=== PATIENT | female | born 1950 | race Caucasian/White ===

== ENCOUNTER → 2020-03-07 09:36 | Outpatient (BNVA) | payer MEDICARE, MEDICAID, SELFPAY | PROVIDERS: PCP Internal Medicine; Referring Provider Internal Medicine; Visit Provider Internal Medicine | DX: Z13.89 Encounter for screening for other disorder (principal) | CPT/HCPCS: Q3014 ==

== ENCOUNTER → 2020-05-10 11:34 | Outpatient (BNVA) | payer MEDICARE, MEDICAID, SELFPAY | PROVIDERS: PCP Family Medicine; Visit Provider Internal Medicine | DX: Z76.89 Persons encountering health services in other specified circumstances (principal) | CPT/HCPCS: Q3014 ==

== ENCOUNTER 2020-06-14 15:06 | Outpatient (REF) | payer MEDICARE, MEDICAID, SELFPAY ==
[2020-06-14 16:52] LABS: Calcium 8.4 mg/dL (8.4-10.2)
[2020-06-14 17:20] LABS: Free T4 (Free Thyroxine) 0.96 ng/dL (0.71-1.85); Thyroid Stimulating Hormone 0.41 uIU/mL (0.32-4.0); Vitamin D 25-OH Total 37.8 ng/mL (>30)
[2020-06-15 13:47] LABS: Calcium (PTHI) 8.8 mg/dL (8.6-10.4); PTHI 67 pg/mL (14-64)
== END 2020-06-14 15:07 | disposition home or self-care (01) ==
LOC: HO.HMGCLDS 15:06
PROVIDERS: PCP Internal Medicine; Visit Provider Internal Medicine
DX: E55.9 Vitamin D deficiency, unspecified (principal); E04.1 Nontoxic single thyroid nodule; E04.2 Nontoxic multinodular goiter
CPT/HCPCS: 36415; 82040; 82306; 82310; 83970; 84439; 84443

== ENCOUNTER 2020-07-03 07:56 | Outpatient (REF) | payer MEDICARE, MEDICAID, SELFPAY ==
[2020-07-03 12:05] LABS: Cholesterol 231 mg/dL; HDL Cholesterol 51 mg/dL; LDL Cholesterol Calculated 155 mg/dl; Triglycerides 129 mg/dL
== END 2020-07-03 07:57 | disposition home or self-care (01) ==
LOC: HO.HMGCLDS 07:56
PROVIDERS: PCP Internal Medicine; Visit Provider Internal Medicine
DX: E78.5 Hyperlipidemia, unspecified (principal)
CPT/HCPCS: 36415; 80061

== ENCOUNTER 2020-07-05 08:51 | Outpatient (REF) | payer MEDICARE, MEDICAID, SELFPAY ==
--- NOTE | 2020-07-05 09:41 | P.BOP_ITS ---
Brief Operative Note Date of Service: 07/05/20 Surgeon: Juliet Mccracken, DO This is doctor Juliet Mccracken. This is an ultrasound-guided fine-needle aspiration report. Date of Examination: 07/05/2020 Indication: Multinodular Thyroid Porcedure: Procedure was explained to the patient. Alternatives, the risk and benefits were discussed. Written consent was obtained. A time-out was also obtained. After sterile preparation, fine-needle aspiration of a Right mid pole 3.3 cm thyroid nodule was performed using direct ultrasound guidance to confirm accurate needle placement. Four aspirations were made using 27 gauge needles. Samples were submitted for cytology. One pass was dedicated for [employer] sequencing quality control inspector heading testing. The patient tolerated the procedure well. Aftercare instructions were provided. Impression: Uncomplicated fine needle aspiration biopsy of a right mid pole 3.3 cm thyroid nodule under ultrasound guidance. Estimated blood loss (mL): 0
[2020-07-05] MEDS: Lidocaine HCl 1 % MPF 5 ML VIAL SUBCUT (11:38)
== END 2020-07-05 08:52 | disposition home or self-care (01) ==
LOC: HO.US 08:51
PROVIDERS: Visit Provider Internal Medicine
DX: E04.1 Nontoxic single thyroid nodule (principal)
CPT/HCPCS: 10005; 88172; 88173

== ENCOUNTER → 2020-07-19 08:47 | Outpatient (BNVA) | payer MEDICARE, MEDICAID, SELFPAY | PROVIDERS: PCP Internal Medicine; Visit Provider Internal Medicine | DX: Z13.89 Encounter for screening for other disorder (principal) | CPT/HCPCS: Q3014 ==

== ENCOUNTER 2020-10-02 16:20 | Outpatient (REF) | payer MEDICARE, MEDICAID, SELFPAY ==
--- NOTE | ~2020-10-02 | MM_ITS ---
EXAMINATION: MM SCREENING DIGITAL BREAST TOMOSYNTHESIS, BILATERAL CLINICAL INFORMATION: Screening. Asymptomatic. The lifetime risk of breast cancer based on the Tyrer-Cuzick Model is 7%. COMPARISON: Outside mammography: 07/29/2018, 07/24/2017 ([place]); and prior exam 01/04/2015. TECHNIQUE: Digital breast tomosynthesis is performed in both the craniocaudal and mediolateral oblique views along with computer-aided detection (CAD). Synthesized 2D images are generated from the tomosynthesis. FINDINGS: There are scattered areas of fibroglandular density (ACR BI-RADS breast composition Category b). Parenchymal pattern is similar to prior studies. There is no developing density or interval mass or architectural abnormality. Small nodular asymmetric density central left breast on CC view mid depth is slightly decreased from prior exams. The axilla and skin contours are unremarkable. MM/MM tomosynthesis screening BI IMPRESSION: No mammographic evidence of malignancy. ASSESSMENT: BI-RADS 2: Benign RECOMMENDATION: Routine annual mammography screening. This patient's information was entered into a reminder system with a target due date for their next mammogram.
== END 2020-10-02 16:21 | disposition home or self-care (01) ==
LOC: HO.MAMMO 16:20
PROVIDERS: Visit Provider Internal Medicine
DX: Z12.31 Encounter for screening mammogram for malignant neoplasm of breast (principal)
CPT/HCPCS: 77063; 77067

== ENCOUNTER 2021-01-08 09:02 | Outpatient (REF) | payer MEDICARE, MEDICAID, SELFPAY ==
[2021-01-08 12:23] LABS: Vitamin D 25-OH Total 36.7 ng/mL (>30)
[2021-01-08 12:28] LABS: Alanine Aminotransferase 14 U/L (0-31); Albumin Level 4.1 g/dL (3.5-5.0); Alkaline Phosphatase 73 U/L (39-117); Anion Gap 12 (12-20); Aspartate Amino Transferase 21 U/L (5-31); Bilirubin Total 0.5 mg/dL (0.0-1.0); Blood Urea Nitrogen 16 mg/dL (9-16); Calcium 8.7 mg/dL (8.4-10.2); Carbon Dioxide 22 mmol/L (22-29); Chloride 111 mmol/L (96-108); Estimated Glomerular Filt Rate > 60; Glucose Random 107 mg/dL (60-115); Phosphorus 3.3 mg/dL (2.7-4.5); Potassium 4.2 mmol/L (3.3-5.1); Sodium 141 mmol/L (135-145); Total Protein 6.8 g/dL (6.5-8.0)
[2021-01-10 15:37] LABS: Calcium (PTHI) 8.8 mg/dL (8.6-10.4); PTHI 53 pg/mL (14-64)
== END 2021-01-08 09:03 | disposition home or self-care (01) ==
LOC: HO.HMGCLDS 09:02
PROVIDERS: PCP Internal Medicine; Visit Provider Internal Medicine
DX: E55.9 Vitamin D deficiency, unspecified (principal)
CPT/HCPCS: 36415; 80053; 82306; 83970; 84100

== ENCOUNTER 2021-01-11 | Outpatient (REF) | payer MEDICARE, MEDICAID, SELFPAY ==
[2021-01-11 12:12] LABS: Total Volume 24 Hour Urine 1800 mL
[2021-01-11 12:24] LABS: Creatinine, 24Hr Urine 1.3 G/Day (1.0-2.0); Creatinine, mg/dL 73.71
[2021-01-13 17:27] LABS: Calcium, 24 Hr Urine 86 mg/24 h; Calcium/Creatinine Ratio 62 mg/g creat (30-275)
== END 2021-01-11 00:01 | disposition home or self-care (01) ==
LOC: HO.HMGCLNP
PROVIDERS: Visit Provider Internal Medicine
DX: E55.9 Vitamin D deficiency, unspecified (principal)
CPT/HCPCS: 82340; 82570

== ENCOUNTER → 2021-01-21 12:39 | Outpatient (BNVA) | payer MEDICARE, MEDICAID, SELFPAY | PROVIDERS: PCP Internal Medicine; Visit Provider Internal Medicine | DX: E04.2 Nontoxic multinodular goiter (principal); E83.51 Hypocalcemia; E55.9 Vitamin D deficiency, unspecified | CPT/HCPCS: Q3014 ==

== ENCOUNTER 2021-02-18 09:43 | Outpatient (REF) | payer MEDICARE, MEDICAID, SELFPAY ==
--- NOTE | ~2021-02-18 | US_ITS ---
EXAMINATION: US THYROID CLINICAL INFORMATION: Nontoxic multinodular goiter. COMPARISON: Ultrasound-guided thyroid ultrasound 07/05/2020. Thyroid ultrasound 12/12/2019. TECHNIQUE: Linear transducer grayscale and color Doppler examination with attention to the region of the thyroid. FINDINGS: SIZE: Measurements of the thyroid lobes and nodules are given in sagittal, anteroposterior and transverse dimensions respectively. Right Thyroid Lobe: 6.3 x 3.4 x 2.5 cm, volume 28.0 mL. Left Thyroid Lobe: 5.1 x 1.6 x 1.9 cm, volume 8.1 mL. Isthmus: 0.7 cm in maximum AP dimension. THYROID PARENCHYMA AND NODULES: Thyroid gland is heterogeneous and has several nodules. On color Doppler images, the vascularity of the gland is normal. A cluster of solid, heterogeneous, predominantly isoechoic, smoothly marginated nodules is present in the right mid to lower pole. It is somewhat difficult to measure individual nodules since they are abutting. The surgical scrub technologist has measured the entire cluster and not the individual nodules. Within this area of the right lobe, a nodule in the anterior interpolar region measures 2.4 x 1.5 x 2 cm. Considering the ampoule washing machine operator differences on this exam compared to 12/12/2019, the nodule is not appreciably changed in size. ACR TI-RADS score of 3 points, TR3. This nodule underwent ultrasound-guided FNA on 07/05/2020. The nodule in the right lower pole measures approximately 1.6 x 1.6 x 1.7 cm. Again, it somewhat difficult to compare directly with 12/12/2019 due to differences in imaging technique and specific sites chosen for measurement between exams. This nodule was previously approximately 2 x 1.9 x 2.3 cm on 12/12/2019. ACR TI-RADS score of 3 points, TR3. Follow-up in 24 months is recommended. 0.9 x 0.9 x 1 cm solid, smoothly marginated, heterogeneous, predominantly isoechoic noncalcified nodule in the isthmus is not significantly changed compared to 12/11/2020. ACR TI-RADS score of 3 points, TR3. 1.2 x 0.5 x 1 cm isoechoic smoothly marginated noncalcified isthmic nodule was previously given a measurement of 0.9 x 0.4 x 0.8 cm. It is not appreciably changed, considering the technical differences. ACR TI-RADS score of 3 points, TR3. 1.8 x 1 x 1.1 cm solid, heterogeneous (predominantly isoechoic) smoothly marginated noncalcified nodule is present in the left interpolar area. This nodule was previously given a measurement of 1.9 x 0.8 x 1.6 cm on 12/12/2019. ACR TI-RADS score of 3 points, TR3. Follow up in 24 months is recommended. NODES: No lymphadenopathy is seen in the tissue surrounding the thyroid gland. US/US thyroid IMPRESSION: Large, heterogeneous multinodular thyroid gland. Considering technique differences, the nodules have not significantly changed compared to 12/12/2019. The largest nodule in the right lobe underwent ultrasound-guided FNA of 07/05/2020. There are two other nodules in the gland that are of a size for which ultrasound follow-up in 24 months would be recommended. Note that ACR TI-RADS Committee recommendations serve as guidance. Ultimately, decisions regarding whether or not to perform ultrasound follow-up or FNA should account for referring physician preference, patient risk factors for thyroid cancer, patient age, comorbidities, life expectancy and any other relevant considerations.
[2021-02-18 14:15] LABS: Cholesterol 219 mg/dL; HDL Cholesterol 49 mg/dL; LDL Cholesterol Calculated 137 mg/dl; Phosphorus 3.4 mg/dL (2.7-4.5); Triglycerides 165 mg/dL
[2021-02-18 14:32] LABS: Free T4 (Free Thyroxine) 1.01 ng/dL (0.71-1.85); Vitamin D 25-OH Total 33.5 ng/mL (>30)
[2021-02-18 14:41] LABS: Thyroid Stimulating Hormone 0.45 uIU/mL (0.32-4.0)
[2021-02-19 14:51] LABS: Calcium (PTHI) 9.1 mg/dL (8.6-10.4); PTHI 32 pg/mL (14-64)
== END 2021-02-18 09:44 | disposition home or self-care (01) ==
LOC: HO.HMGCX 09:43
PROVIDERS: PCP Internal Medicine; Visit Provider Internal Medicine
DX: E04.2 Nontoxic multinodular goiter (principal); E78.5 Hyperlipidemia, unspecified; E55.9 Vitamin D deficiency, unspecified
CPT/HCPCS: 36415; 76536; 80061; 82306; 83970; 84100; 84439; 84443

== ENCOUNTER 2021-03-07 14:51 | Outpatient (REF) | payer MEDICARE, MEDICAID, SELFPAY ==
--- NOTE | ~2021-03-07 | XR_ITS ---
EXAMINATION: XR THORACOLUMBAR SPINE CLINICAL INFORMATION: Pain COMPARISON: None TECHNIQUE: 3 views of the thoracic spine FINDINGS: There is curvature of the midthoracic spine to the right. Bone alignment is otherwise normal. No fracture or dislocation is seen. There is multilevel degenerative spondylosis of the mid and lower thoracic spine. Paraspinal soft tissues are normal. XR/XR thoracic spine 2V IMPRESSION: Curvature of the midthoracic spine to the right and degenerative changes.
== END 2021-03-07 14:52 | disposition home or self-care (01) ==
LOC: HO.HMGCX 14:51
PROVIDERS: PCP Internal Medicine; Visit Provider Internal Medicine
DX: M54.6 Pain in thoracic spine (principal)
CPT/HCPCS: 72070

== ENCOUNTER 2021-06-20 07:54 | Outpatient (REF) | payer MEDICARE, MEDICAID, SELFPAY ==
--- NOTE | 2021-06-20 08:52 | P.BOP_ITS ---
Brief Operative Note Date of Service: 06/20/21 Pre-op diagnosis: Multinodular Thyroid Procedure: This is doctor Juliet Mccracken. This is an ultrasound-guided fine-needle aspiration report. Date of Examination: 06/20/2021 Indication: Multinodular Thyroid Porcedure: Procedure was explained to the patient. Alternatives, the risk and benefits were discussed. Written consent was obtained. A time-out was also obtained. After sterile preparation, fine-needle aspiration of a right mid pole 4.2 cm thyroid nodule was performed using direct ultrasound guidance to confirm accurate needle placement. Four aspirations were made using 27 gauge needles. Samples were submitted for cytology. One pass was dedicated for [employer] sequencing licensed sales assistant testing. Our attention was then turned to the isthmus. Fine-needle aspiration of a left isthmus 1.1 cm thyroid nodule was performed using direct ultrasound guidance to confirm accurate needle placement. Four aspirations were made using 27 gauge needles. Samples were submitted for cytology. One pass was dedicated for [employer] sequencing licensed sales assistant testing. The patient tolerated the procedure well. Aftercare instructions were provided. Impression: Uncomplicated fine needle aspiration biopsy of a right mid pole 4.2 cm and a left isthmus 1.1 cm thyroid nodule under ultrasound guidance. Surgeon: Juliet Mccracken, DO Was an Regional Administrative Assistant used for this Procedure?: No Estimated blood loss (mL): 0
[2021-06-20] MEDS: Lidocaine HCl 1 % MPF 5 ML VIAL SUBCUT (09:31)
== END 2021-06-20 07:55 | disposition home or self-care (01) ==
LOC: HO.US 07:54
PROVIDERS: Visit Provider Internal Medicine
DX: E04.2 Nontoxic multinodular goiter (principal)
CPT/HCPCS: 10005; 10006; 88172; 88173; 88177

== ENCOUNTER 2021-07-22 08:44 | Outpatient (REF) | payer MEDICARE, MEDICAID, SELFPAY ==
[2021-07-22 12:30] LABS: Free T4 (Free Thyroxine) 0.97 ng/dL (0.71-1.85); Thyroid Stimulating Hormone 0.53 uIU/mL (0.32-4.0)
== END 2021-07-22 08:45 | disposition home or self-care (01) ==
LOC: HO.HMGCLDS 08:44
PROVIDERS: Visit Provider Internal Medicine
DX: E04.2 Nontoxic multinodular goiter (principal)
CPT/HCPCS: 36415; 84439; 84443

== ENCOUNTER → 2021-07-25 08:51 | Outpatient (BNVA) | payer MEDICARE, MEDICAID, SELFPAY | PROVIDERS: PCP Internal Medicine; Visit Provider Internal Medicine | DX: E04.2 Nontoxic multinodular goiter (principal); E83.51 Hypocalcemia; E55.9 Vitamin D deficiency, unspecified | CPT/HCPCS: Q3014 ==

== ENCOUNTER 2021-08-29 15:19 | Outpatient (REF) | payer MEDICARE, MEDICAID, SELFPAY ==
[2021-08-31 05:01] LABS: Lyme Abs Screen <0.90 index
== END 2021-08-29 15:20 | disposition home or self-care (01) ==
LOC: HO.HMGCLDS 15:19
PROVIDERS: PCP Internal Medicine
DX: T14.8XXA Other injury of unspecified body region, initial encounter (principal); W57.XXXA Bitten or stung by nonvenomous insect and other nonvenomous arthropods, initial encounter
CPT/HCPCS: 36415; 86617; 86618

== ENCOUNTER 2022-01-02 14:28 | Outpatient (REF) | payer MEDICARE, MEDICAID, SELFPAY ==
[2022-01-02 17:43] LABS: Appearance Urine Clear; Color Urine Yellow; Glucose Urine UA Negative (Negative); Leukocyte Esterase Urine Trace (Negative); Nitrite Urine Negative (Negative); UMIC TRIGGER UACC YES; Urine Blood Negative (Negative); Urine Ketones Negative (Negative); Urine Protein Negative (Neg-Trace)
[2022-01-02 17:45] LABS: Bacteria Urine None Seen (None Seen); Hyaline Casts Urine 0-2 /LPF (0-2); RBC Urine 0-2 /HPF (0-2); Squamous Epithelial Cell Urine 0-2 /HPF (0-2); WBC Urine 0-5 /HPF (0-5)
== END 2022-01-02 14:29 | disposition home or self-care (01) ==
LOC: HO.LNP 14:28
PROVIDERS: Visit Provider Internal Medicine
DX: R30.0 Dysuria (principal)
CPT/HCPCS: 81001

== ENCOUNTER 2022-01-07 07:22 | Outpatient (REF) | payer MEDICARE, MEDICAID, SELFPAY ==
--- NOTE | ~2022-01-07 | MR_ITS ---
EXAMINATION: MRI SHOULDER WITHOUT CONTRAST, LEFT CLINICAL INFORMATION: Shoulder pain. COMPARISON: None. TECHNIQUE: MRI of the shoulder without contrast is performed in a 1.5 Evy high-field scanner. FINDINGS: CORACOACROMIAL ARCH: Mild to moderate acromioclavicular arthritis, with bony edema.Small fluid in the subacromial subdeltoid space. Undersurface of the acromion is flat with mild lateral downsloping.. ROTATOR CUFF: Supraspinatus and infraspinatus tendinosis. Tear of the supraspinatus and infraspinatus tendon measuring 2.1 x 3.2 cm. (AP x ML). The tear is high-grade in nature, with the probable full-thickness components. Teres minor is intact. Mild subscapularis tendinosis, articular surface fraying. ROTATOR CUFF MUSCLES: No muscle atrophy or fatty infiltration. BICEPS TENDON: Intact LABRUM/CAPSULE: Small caliber of the anteroinferior labrum. No displaced labral tear is seen. GLENOHUMERAL JOINT/MARROW: Minimal glenohumeral joint arthritis. Degenerative cyst/edema in the greater tuberosity. Small to moderate effusion. MR/MR shoulder LT wo con IMPRESSION: 1. Supraspinatus and infraspinatus tendinosis. 2.1 x 3.2 cm high-grade tear with probable full-thickness components. 2. Mild subscapularis tendinosis, articular surface fraying. 3. Small caliber of the anteroinferior labrum. No displaced labral tear is seen. 4. Minimal glenohumeral joint arthritis. Small to moderate effusion. 5. Mild to moderate acromioclavicular arthritis.
== END 2022-01-07 07:23 | disposition home or self-care (01) ==
LOC: HO.MRI 07:22
PROVIDERS: Visit Provider Internal Medicine
DX: S46.002A Unspecified injury of muscle(s) and tendon(s) of the rotator cuff of left shoulder, initial encounter (principal); X58.XXXA Exposure to other specified factors, initial encounter; Y93.9 Activity, unspecified; Y92.9 Unspecified place or not applicable; Y99.9 Unspecified external cause status
CPT/HCPCS: 73221

== ENCOUNTER 2022-01-24 13:20 | Outpatient (REF) | payer MEDICARE, MEDICAID, SELFPAY ==
--- NOTE | ~2022-01-24 | XR_ITS ---
EXAMINATION: XR WRIST, LEFT CLINICAL INFORMATION: Pain. COMPARISON: None TECHNIQUE: 4 views of the left wrist. FINDINGS: The bones and soft tissues are normal. No fracture. Alignment is anatomic with normal joint spaces. No erosions or abnormal soft tissue calcifications. XR/XR wrist LT 2V IMPRESSION: Unremarkable left wrist.
== END 2022-01-24 13:21 | disposition home or self-care (01) ==
LOC: HO.HMGCX 13:20
PROVIDERS: PCP Internal Medicine; Visit Provider Internal Medicine
DX: M25.532 Pain in left wrist (principal)
CPT/HCPCS: 73100

== ENCOUNTER 2022-01-29 10:12 | Outpatient (REF) | payer MEDICARE, MEDICAID, SELFPAY ==
--- NOTE | ~2022-01-29 | US_ITS ---
EXAMINATION: US ABDOMEN COMPLETE CLINICAL INFORMATION: Unspecified abdominal pain. COMPARISON: CT abdomen and pelvis 10/07/2012. Ultrasound abdomen 06/26/2010. Renal ultrasound 09/07/2007. TECHNIQUE: Real-time imaging of the abdominal viscera. FINDINGS: PANCREAS: Normal. ABDOMINAL AORTA: The proximal, mid, and distal segments are normal in caliber. INFERIOR VENA CAVA: Visualized portions are normal. LIVER: The liver is normal in size. The liver contour is normal. There is diffuse increased liver parenchymal echogenicity. No focal hepatic lesion. There is no intrahepatic biliary duct dilatation seen. GALLBLADDER: Surgically absent. COMMON BILE DUCT: Normal in caliber measuring 0.4 cm in diameter. RIGHT KIDNEY: Normal. No hydronephrosis. No renal calculi or focal parenchymal lesions. The kidney measures 10.4 cm in maximum dimension. LEFT KIDNEY: At the lower pole, a 6 mm in maximal diameter anechoic, simple cyst is seen. No hydronephrosis or renal calculi. The kidney measures 10.5 cm in maximum dimension. SPLEEN: Normal. The spleen measures 7.7 cm in maximum dimension. FREE FLUID: None. US/US abdomen complete IMPRESSION: 1. There is generalized increase in hepatic echotexture, consistent with fatty infiltration or hepatocellular disease. Please correlate clinically. No focal hepatic mass or intrahepatic biliary dilatation is seen. 2. The gallbladder is surgically absent. 3. A tiny simple left renal cyst is incidentally noted. This is a benign finding, for which no imaging follow-up is recommended.
== END 2022-01-29 10:13 | disposition home or self-care (01) ==
LOC: HO.HMGCX 10:12
PROVIDERS: PCP Internal Medicine; Visit Provider Internal Medicine
DX: R10.9 Unspecified abdominal pain (principal); K27.9 Peptic ulcer, site unspecified, unspecified as acute or chronic, without hemorrhage or perforation; N20.0 Calculus of kidney
CPT/HCPCS: 76700; 87338

== ENCOUNTER 2022-02-19 07:13 | Outpatient (REF) | payer MEDICARE, MEDICAID, SELFPAY ==
--- NOTE | ~2022-02-19 | XR_ITS ---
EXAMINATION: XR SHOULDER, LEFT CLINICAL INFORMATION: Pain in left shoulder. COMPARISON: None. TECHNIQUE: 3 views of the left shoulder. FINDINGS: Mild arthrosis of the acromioclavicular joint. Glenohumeral joint normal. Scattered cysts in the greater tuberosity likely enthesopathic without clinical significance. XR/XR shoulder LT min 2V IMPRESSION: Mild arthrosis of the acromioclavicular joint.
== END 2022-02-19 07:14 | disposition home or self-care (01) ==
LOC: HO.HOSX 07:13
PROVIDERS: Visit Provider Physician Assistant
DX: G56.02 Carpal tunnel syndrome, left upper limb (principal); M75.102 Unspecified rotator cuff tear or rupture of left shoulder, not specified as traumatic; M19.012 Primary osteoarthritis, left shoulder
CPT/HCPCS: 73030; 99202; 99212

== ENCOUNTER 2022-04-22 08:24 | Outpatient (REF) | payer MEDICARE, MEDICAID, SELFPAY ==
[2022-04-22 11:41] LABS: MANUAL DIFF FLAG NO
[2022-04-22 11:57] LABS: Basophils Absolute Auto 0.1 X10*3/uL (0.0-0.2); Basophils Percent Auto 1.1 % (0-2); Eosinophils Absolute Auto 0.3 X10*3/uL (0.0-0.4); Eosinophils Percent Auto 4.9 % (0-4); Hematocrit 43.1 % (37.0-47.0); Hemoglobin 14.7 g/dl (12.0-16.0); Imm Gran Abs Auto 0.02 X10*3/uL (0.00-0.03); Imm Gran Pct Auto 0.3 % (0.0-0.4); Lymphocytes Absolute Auto 2.7 X10*3/uL (1.2-4.9); Lymphocytes Percent Auto 38.8 % (20-40); Mean Corpuscular HGB Conc 34.1 g/dl (31.0-35.0); Mean Corpuscular Hemoglobin 31.9 pg (27.0-33.0); Mean Corpuscular Volume 93.5 fL (80.0-98.0); Mean Platelet Volume 9.9 fL (9.4-12.3); Monocytes Absolute Auto 0.6 X10*3/uL (0.1-1.2); Monocytes Percent Auto 8.9 % (2-11); Neutrophils Absolute Auto 3.2 x10*3/uL (2.0-8.3); Platelet Count 275 X10*3/uL (160-400); Red Blood Count 4.61 X10*6/uL (4.20-5.50); Red Cell Distribution Width 12.5 % (11.0-16.0)
[2022-04-22 12:31] LABS: Alanine Aminotransferase 16 U/L (0-31); Anion Gap 11 (12-20); Aspartate Amino Transferase 22 U/L (5-31); Bilirubin Total 0.6 mg/dL (0.0-1.0); Blood Urea Nitrogen 22 mg/dL (9-16); Calcium 8.9 mg/dL (8.4-10.2); Carbon Dioxide 26 mmol/L (22-29); Chloride 108 mmol/L (96-108); Cholesterol 231 mg/dL; Estimated Glomerular Filt Rate > 60; Glucose Random 130 mg/dL (60-115); HDL Cholesterol 48 mg/dL; LDL Cholesterol Calculated 161 mg/dl; Potassium 4.3 mmol/L (3.3-5.1); Sodium 141 mmol/L (135-145); Total Protein 6.8 g/dL (6.5-8.0); Triglycerides 114 mg/dL
[2022-04-22 13:12] LABS: Alkaline Phosphatase 79 U/L (39-117); Vitamin D 25-OH Total 38.8 ng/mL (>30)
== END 2022-04-22 08:25 | disposition home or self-care (01) ==
LOC: HO.HMGCLDS 08:24
PROVIDERS: PCP Internal Medicine; Visit Provider Internal Medicine
DX: E04.2 Nontoxic multinodular goiter (principal); E55.9 Vitamin D deficiency, unspecified; E78.5 Hyperlipidemia, unspecified
CPT/HCPCS: 36415; 80053; 80061; 82306; 85025

== ENCOUNTER 2022-04-28 07:54 | Outpatient (REF) | payer MEDICARE, MEDICAID, SELFPAY ==
[2022-04-28 13:33] LABS: Estimated Average Glucose 126 mg/dL
== END 2022-04-28 07:55 | disposition home or self-care (01) ==
LOC: HO.HMGCLDS 07:54
PROVIDERS: PCP Internal Medicine; Visit Provider Internal Medicine
DX: R73.9 Hyperglycemia, unspecified (principal)
CPT/HCPCS: 36415; 83036

== ENCOUNTER 2022-05-01 13:32 | Outpatient (REF) | payer MEDICARE, MEDICAID, SELFPAY ==
--- NOTE | 2022-05-01 09:45 | EMG_ITS ---
Left median and ulnar motor and sensory studies were performed. Left radial and sensory study was performed. Left median and lateral antecubital sensory studies were performed and needle examination was performed. IMPRESSION: 1. 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 2. Mild left ulnar neuropathy across cubital tunnel. MD DIMITRIOS Zee/JODI / [id number]
== END 2022-05-01 13:33 | disposition home or self-care (01) ==
LOC: HO.NEURO 13:32
PROVIDERS: PCP Internal Medicine; Visit Provider Physician Assistant
DX: R20.0 Anesthesia of skin (principal); R20.2 Paresthesia of skin; G56.02 Carpal tunnel syndrome, left upper limb
CPT/HCPCS: 95886; 95910

== ENCOUNTER 2022-05-21 13:08 | Outpatient (REF) | payer MEDICARE, MEDICAID, SELFPAY ==
--- NOTE | ~2022-05-21 | US_ITS ---
EXAMINATION: US PELVIS CLINICAL INFORMATION: . COMPARISON: None TECHNIQUE: Ultrasound of the pelvis is performed using both transabdominal and transvaginal transducers along with Doppler. Transvaginal imaging is performed due to inadequate visualization transabdominally. FINDINGS: Uterus: The uterus is anteverted and measures 4.78 seen in length, 2.7 cm in AP and 3.6 cm in transverse dimension. The double wall endometrial thickness is 0.57 cm. The uterus is smooth in contour and has normal myometrial echogenicity. No visible fibroid. Adnexa: Both ovaries are visualized. There is normal color flow to the adnexa. There is no ovarian torsion. There is no pelvic ascites or fluid collection. Right ovary is suboptimally visualized but measures 1.17 x 1.0 x 1.0 cm and volume 0.64 ml. Left ovary is not visualized. There is no free fluid in cul-de-sac. US/US pelvic and transvaginal IMPRESSION: Anteverted uterus appears unremarkable. Faintly visualized right ovary is unremarkable. The left ovary is not seen. There is no free fluid in the cul-de-sac.
== END 2022-05-21 13:09 | disposition home or self-care (01) ==
LOC: HO.HMGCX 13:08
PROVIDERS: PCP Internal Medicine; Visit Provider Internal Medicine
DX: N95.0 Postmenopausal bleeding (principal)
CPT/HCPCS: 76830; 76856

== ENCOUNTER 2022-06-13 12:09 | Outpatient (REF) | payer MEDICARE, MEDICAID, SELFPAY ==
--- NOTE | ~2022-06-13 | MM_ITS ---
EXAMINATION: MM SCREENING DIGITAL BREAST TOMOSYNTHESIS, BILATERAL CLINICAL INFORMATION: Screening. Asymptomatic. The lifetime risk of breast cancer based on the Tyrer-Cuzick Model is 6%. COMPARISON: Mammography: 10/02/2020; outside mammography 07/29/2018, 07/24/2017 ([place] TECHNIQUE: Digital breast tomosynthesis is performed in both the craniocaudal and mediolateral oblique views along with computer-aided detection (CAD). Synthesized 2D images are generated from the tomosynthesis. Additional right MLO view is provided. FINDINGS: There are scattered areas of fibroglandular density (ACR BI-RADS breast composition Category b). There are no significant masses, abnormal calcifications, or other abnormalities. There is no developing density or architectural abnormality. The axilla and skin contours are unremarkable. No significant changes. MM/MM tomosynthesis screening BI IMPRESSION: No mammographic evidence of malignancy. ASSESSMENT: BI-RADS 1: Negative RECOMMENDATION: Routine annual mammography screening. This patient's information was entered into a reminder system with a target due date for their next mammogram.
== END 2022-06-13 12:10 | disposition home or self-care (01) ==
LOC: HO.MAMMO 12:09
PROVIDERS: PCP Internal Medicine; Visit Provider Internal Medicine
DX: Z12.31 Encounter for screening mammogram for malignant neoplasm of breast (principal)
CPT/HCPCS: 77063; 77067

== ENCOUNTER → 2022-06-25 08:29 | Outpatient (BNVA) | payer MEDICARE, MEDICAID, SELFPAY | PROVIDERS: PCP Internal Medicine; Visit Provider Orthopaedic Surgery | DX: R22.32 Localized swelling, mass and lump, left upper limb (principal); G56.22 Lesion of ulnar nerve, left upper limb; G56.02 Carpal tunnel syndrome, left upper limb | CPT/HCPCS: 99202 ==

== ENCOUNTER 2022-07-10 09:26 | Outpatient (REF) | payer MEDICARE, MEDICAID, SELFPAY ==
--- NOTE | ~2022-07-10 | US_ITS ---
EXAMINATION: US THYROID CLINICAL INFORMATION: Nontoxic multinodular goiter. COMPARISON: Ultrasound soft tissue head/neck thyroid dated 02/18/2021. TECHNIQUE: Linear transducer grayscale and color Doppler examination with attention to the region of the thyroid. FINDINGS: SIZE: Measurements of the thyroid lobes and nodules are given in sagittal, anteroposterior and transverse dimensions respectively. Right Thyroid Lobe: 5.5 x 3.1 x 2.7 cm, volume 24.3 mL. Previously 6.3 x 3.4 x 2.5 cm, volume 28.0 mL. Parenchyma: The gland echotexture is heterogeneous. Thyroid vascularity is normal. Left Thyroid Lobe: 4.8 x 2.0 x 1.4 cm, volume 6.9 mL. Previously 5.1 x 1.6 x 1.9 cm, volume 8.1 mL. Parenchyma: The gland echotexture is heterogeneous. Thyroid vascularity is normal. Isthmus: 0.3 cm in maximum AP dimension. Previously 0.7 cm. Estimated total number of nodules greater than or equal to 1 cm: 2. Boxing Promoter nodules are described as follows: 1. Location: Right mid/inferior. Size: 3.6 x 1.7 x 1.8 cm, volume 5.7 mL. Previously: 4.3 x 2.9 x 2.8 cm, volume 18.2 mL. Nodule characteristics: Composition: Solid/almost completely solid (2). Echogenicity: Isoechoic (1). Shape: Not taller than wide (0). Margins: Ill-defined (0). Echogenic Foci: None (0). ACR TI-RADS total points: 3 Previous: 3 ACR TI-RADS category: 3 Previous: 3 Significant change in size (>/= 20% in 2 dimensions and minimal increase of 2 mm or 50% or greater increase in volume): No Change in features: No Change in ACR TI-RADS risk category: No 2. Location: Left superior/mid. Size: 1.1 x 1.0 x 1.1 cm, volume 0.06 mL. Previously: 1.8 x 1.0 x 1.1 cm, volume 0.15 mL. Nodule characteristics: Composition: Solid/almost completely solid (2). Echogenicity: Isoechoic (1). Shape: Not taller than wide (0). Margins: Ill-defined (0). Echogenic Foci: None (0). ACR TI-RADS total points: 3 Previous: 3 ACR TI-RADS category: 3 Previous: 3 Significant change in size (>/= 20% in 2 dimensions and minimal increase of 2 mm or 50% or greater increase in volume): No Change in features: No Change in ACR TI-RADS risk category: No 3. Location: Inferior isthmus. Size: 0.9 x 0.4 x 0.7 cm, volume 0.1 mL. Previously: 1.3 x 0.5 x 1.0 cm, volume 0.3 mL. Nodule characteristics: Composition: Solid (2). Echogenicity: Isoechoic (1). Shape: Not taller than wide (0). Margins: Ill-defined (0). Echogenic Foci: None (0). ACR TI-RADS total points: 3 Previous: 3 ACR TI-RADS category: 3 Previous: 3 Significant change in size (>/= 20% in 2 dimensions and minimal increase of 2 mm or 50% or greater increase in volume): No Change in features: No Change in ACR TI-RADS risk category: No NODES: No lymphadenopathy is seen in the tissue surrounding the thyroid gland. US/US thyroid IMPRESSION: Heterogeneous multinodular thyroid. A dominant 3.6 cm TR 3 nodule in the right mid to lower gland is decreased in size, if previously not biopsied this meets size criteria for FNA, alternatively a follow-up ultrasound in one year is recommended. Additional smaller TR 3 nodules are not significantly changed, for which a follow-up ultrasound in one year is recommended; one of the previously described nodules in the lower isthmus is not seen in this examination. ACR TI-RADS RECOMMENDATION REFERENCE: Ultrasound-guided fine-needle aspiration, followup ultrasound, no further follow up. * TR1 (0 point) and TR2 (2 points): No FNA or follow up * TR3 (3 points): FNA if more than or equal to 2.5 cm in maximum dimension, followup ultrasound in 1, 3 and 5 years if 1.5 to 2.4 cm in maximum dimension. * TR4 (4-6 points): FNA if more than or equal to 1.5 cm in maximum dimension, followup ultrasound in 1, 2, 3 and 5 years if 1 to 1.4 cm in maximum dimension. * TR5 (more than or equal to 7 points): FNA if more than or equal to 1 cm in maximum dimension, followup ultrasound every year for 5 years if 0.5 to 0.9 cm in maximum dimension. * TR3, TR4 or TR5 nodules that are below the size threshold for follow up receive no follow up.
== END 2022-07-10 09:27 | disposition home or self-care (01) ==
LOC: HO.US 09:26
PROVIDERS: PCP Internal Medicine; Visit Provider Internal Medicine
DX: E04.2 Nontoxic multinodular goiter (principal)
CPT/HCPCS: 76536

== ENCOUNTER 2022-07-15 08:09 | Outpatient (REF) | payer MEDICARE, MEDICAID, SELFPAY ==
[2022-07-15 12:57] LABS: Vitamin D 25-OH Total 40.4 ng/mL (>30)
== END 2022-07-15 08:10 | disposition home or self-care (01) ==
LOC: HO.HMGCLDS 08:09
PROVIDERS: PCP Internal Medicine; Visit Provider Internal Medicine
DX: E04.2 Nontoxic multinodular goiter (principal); E55.9 Vitamin D deficiency, unspecified
CPT/HCPCS: 36415; 82306; 84439; 84443

== ENCOUNTER → 2022-07-24 14:06 | Outpatient (BNVA) | payer MEDICARE, MEDICAID, SELFPAY | PROVIDERS: PCP Internal Medicine; Visit Provider Internal Medicine | DX: E04.2 Nontoxic multinodular goiter (principal) | CPT/HCPCS: 99212 ==

== ENCOUNTER 2022-08-29 14:30 | Outpatient (REF) | payer MEDICARE, MEDICAID, SELFPAY ==
--- NOTE | ~2022-08-29 | XR_ITS ---
EXAMINATION: XR FOOT, RIGHT CLINICAL INFORMATION: Right foot pain COMPARISON: None available. TECHNIQUE: AP, lateral, and oblique views of the right foot. FINDINGS: There is mild hallux valgus deformity associated with soft tissue swelling surrounding the first tarsometatarsal joint. The area of pain corresponding to the marker revealed no abnormal findings. There is plantar and superior calcaneal spurs. XR/XR foot RT 2V IMPRESSION: 1. Mild hallux valgus deformity and soft tissue swelling. 2. Calcaneal spurs.
== END 2022-08-29 14:31 | disposition home or self-care (01) ==
LOC: HO.HMGCX 14:30
PROVIDERS: PCP Internal Medicine; Visit Provider Internal Medicine
DX: M79.671 Pain in right foot (principal)
CPT/HCPCS: 73620

== ENCOUNTER 2022-10-14 11:33 | Outpatient (AMB) | payer MEDICARE, MEDICAID, SELFPAY ==
--- NOTE | 2022-10-14 11:36 | MHC.PC.OV ---
Vital Signs 10/14/22 11:37 Height 5 ft 0.5 in Weight 172 lb BMI 33.0 BP 118/66 Blood Pressure Location Lt brachial Position Sitting Pulse 75 Pulse Source Pulse Oximeter Pulse Oximetry (%) 97 Oxygen Delivery Method Room Air Intake Visit Reasons: Folow up Intake Note: Pt is here today for a follow up visit. Allergies codeine Allergy (Intermediate, Verified 10/14/22 11:38) Headache Medication List - Last Reconciled 10/14/22 by Teressa Stoner MD calcium citrate 500 mg (2 x 250 mg calcium) PO DAILY 30 days cholecalciferol (vitamin D3) 50 mcg PO DAILY Tobacco use date assessed: 10/14/22 Fall risk assessment: No Falls in past year Last assessed Fall Risk: 10/14/22 Dental Screening Dental Screen Date: 10/14/22 Did you have a dental visit in the last 12 months?: Yes Did you have a dental problem in the last 6 months where you did not have access to dental care?: No Was dental information given to patient?: Patient has dentist HPI Folow up HPI Details Patient complains of chronic and recurrent epigastric abdominal discomfort worse after eating fatty foods. Patient reports intermittent dry cough but denies shortness of breath fever chills sputum production. Patient denies nausea vomiting, change in bowel habits hematochezia melena, hematuria or dysuria. Patient was treated for H pylori infection 4 years ago. ON LICENSE OF [facility] Medical History Abnormal skin growth Carpal tunnel syndrome Food allergic skin reaction Hyperlipidemia Multinodular thyroid Nephrolithiasis Right carpal tunnel syndrome Thoracic spine pain Thyroid nodule Tick bite Vitamin D deficiency Surgical History H/O colonoscopy Hx of appendectomy Hx of biopsy Hx of cholecystectomy Hx of mammogram Hx of shoulder surgery Family History Father No problems noted. Mother No problems noted. 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 Alcides Cervantes, Arline Giraldo, Audie Broderick and colleagues, with an educational palomo from [employer]. Review of Systems Const All systems reviewed & are unremarkable except as noted in HPI and below Reports no additional complaints Eyes Reports no additional complaints ENT Reports no additional complaints Card Reports no additional complaints Resp Reports no additional complaints GI Reports no additional complaints Physical exam (Primary Care) Vital Signs: Last Vital Signs Pulse 75 10/14/22 11:37 BP 118/66 10/14/22 11:37 Pulse Ox 97 10/14/22 11:37 Oxygen Delivery Method Room Air 10/14/22 11:37 BMI result Body Mass Index 33.0 Tobacco/Smoking Status: Tobacco use Status Tobacco use date assessed 10/14/22 10/14/22 11:41 Patient Tobacco Use Status Never used Tobacco 10/14/22 11:37 e-Cigarette/Vaping Use Never Used 10/14/22 11:37 Thrive Assessment: Date of Thrive Assessment Date Thrive assessed 04/30/22 10/14/22 11:37 Const General: no acute distress HENMT Head: Yes normal to inspection Eyes General: appearance normal, both eyes and all related structures Resp Effort & Inspection: normal respiratory effort Auscultation: clear to auscultation bilaterally Cardio Rhythm: regular rhythm Heart sounds: S1 normal heart sound present and S2 normal heart sound present GI Inspection: Yes normal to inspection Palpation (GI): Soft to palpation, Tenderness to palpation present (GI) in the epigastrum, no guarding, No hepatosplenomegaly present and No Rebound tenderness present Percussion: Yes normal to percussion Auscultation: normal bowel sounds Assessment and Plan Assessment & Plan (1) Abdominal pain: Code(s): R10.9 - Unspecified abdominal pain Plan: For chronic persistent abdominal pain H pylori will be checked and patient will return for fasting labs including comprehensive panel. She will try omeprazole for 5 weeks and if the symptoms persist she will be referred to GI for EGD (2) Hyperglycemia: Code(s): R73.9 - Hyperglycemia, unspecified Plan: Continue ADA diet check A1c (3) H. pylori infection: Comment: Treated in 2019 Code(s): A04.8 - Other specified bacterial intestinal infections Orders: Orders Comprehensive [place]. Panel Fast Today A04.8 - Other specified bacterial intestinal infections, K27.9 - Peptic ulcer, site unspecified, unspecified as acute or chronic, without hemorrhage or perforation, R10.9 - Unspecified abdominal pain, R73.9 - Hyperglycemia, unspecified Hemoglobin A1c Today A04.8 - Other specified bacterial intestinal infections, K27.9 - Peptic ulcer, site unspecified, unspecified as acute or chronic, without hemorrhage or perforation, R10.9 - Unspecified abdominal pain, R73.9 - Hyperglycemia, unspecified Lipid Panel Today A04.8 - Other specified bacterial intestinal infections, K27.9 - Peptic ulcer, site unspecified, unspecified as acute or chronic, without hemorrhage or perforation, R10.9 - Unspecified abdominal pain, R73.9 - Hyperglycemia, unspecified H pylori Ag Stool Today A04.8 - Other specified bacterial intestinal infections, K27.9 - Peptic ulcer, site unspecified, unspecified as acute or chronic, without hemorrhage or perforation, R10.9 - Unspecified abdominal pain, R73.9 - Hyperglycemia, unspecified XR chest 1V Today A04.8 - Other specified bacterial intestinal infections, K27.9 - Peptic ulcer, site unspecified, unspecified as acute or chronic, without hemorrhage or perforation, R10.9 - Unspecified abdominal pain, R73.9 - Hyperglycemia, unspecified Medications: New omeprazole 20 mg PO DAILY 45 caps 0RF Coding Level of Care Code Est Pt Level 4 (99085) Diagnoses Abdominal pain R10.9 Hyperglycemia R73.9 H. pylori infection A04.8
[2022-10-14 11:37] VITALS: BP 118/66; PULSE 75; O2SAT 97; BMI 33.0
== END 2022-10-14 12:10 | disposition home or self-care (01) ==
PROVIDERS: Visit Provider Internal Medicine
DX: R10.9 Unspecified abdominal pain (principal); R73.9 Hyperglycemia, unspecified; A04.8 Other specified bacterial intestinal infections
CPT/HCPCS: 99214

== ENCOUNTER 2022-10-14 12:02 | Outpatient (REF) | payer MEDICARE, MEDICAID, SELFPAY ==
--- NOTE | ~2022-10-14 | XR_ITS ---
EXAMINATION: XR CHEST CLINICAL INFORMATION: Abdominal pain. COMPARISON: Chest radiographs dated 09/18/2009. TECHNIQUE: 2 views of the chest were obtained. FINDINGS: No significant abnormality is noted involving the heart, lungs, mediastinum, bony thorax or soft tissues. XR/XR chest 2V IMPRESSION: No acute cardiopulmonary process.
== END 2022-10-14 12:03 | disposition home or self-care (01) ==
LOC: HO.HMGCX 12:02
PROVIDERS: PCP Internal Medicine; Visit Provider Internal Medicine
DX: R10.9 Unspecified abdominal pain (principal)
CPT/HCPCS: 71046

== ENCOUNTER 2022-10-20 08:42 | Outpatient (REF) | payer MEDICARE, MEDICAID, SELFPAY ==
[2022-10-20 11:41] LABS: MANUAL DIFF FLAG NO
[2022-10-20 11:56] LABS: Basophils Absolute Auto 0.1 X10*3/uL (0.0-0.2); Basophils Percent Auto 0.8 % (0-2); Eosinophils Absolute Auto 0.3 X10*3/uL (0.0-0.4); Hematocrit 42.2 % (37.0-47.0); Imm Gran Abs Auto 0.02 X10*3/uL (0.00-0.03); Imm Gran Pct Auto 0.3 % (0.0-0.4); Lymphocytes Absolute Auto 2.6 X10*3/uL (1.2-4.9); Lymphocytes Percent Auto 39.9 % (20-40); Mean Corpuscular HGB Conc 33.2 g/dl (31.0-35.0); Mean Corpuscular Hemoglobin 31.4 pg (27.0-33.0); Mean Corpuscular Volume 94.6 fL (80.0-98.0); Mean Platelet Volume 10.2 fL (9.4-12.3); Monocytes Absolute Auto 0.6 X10*3/uL (0.1-1.2); Monocytes Percent Auto 9.1 % (2-11); Neutrophils Percent Auto 45.9 % (45-73); Platelet Count 250 X10*3/uL (160-400); Red Blood Count 4.46 X10*6/uL (4.20-5.50); Red Cell Distribution Width 12.8 % (11.0-16.0); White Blood Count 6.5 X10*3/uL (4.8-10.8)
[2022-10-20 12:15] LABS: Alanine Aminotransferase 16 U/L (0-31); Albumin Level 3.8 g/dL (3.5-5.0); Alkaline Phosphatase 74 U/L (39-117); Anion Gap 14 (12-20); Aspartate Amino Transferase 21 U/L (5-31); Bilirubin Total 0.4 mg/dL (0.0-1.0); Blood Urea Nitrogen 20 mg/dL (9-16); Calcium 8.6 mg/dL (8.4-10.2); Carbon Dioxide 21 mmol/L (22-29); Chloride 111 mmol/L (96-108); Cholesterol 206 mg/dL; Estimated Glomerular Filt Rate > 60; Glucose Fasting 110 mg/dL (60-99); HDL Cholesterol 47 mg/dL; LDL Cholesterol Calculated 137 mg/dl; Potassium 4.1 mmol/L (3.3-5.1); Sodium 142 mmol/L (135-145); Total Protein 6.9 g/dL (6.5-8.0); Triglycerides 114 mg/dL
[2022-10-20 12:35] LABS: TSH reflex Free T4 0.97 uIU/mL (0.32-4.0); Vitamin D 25-OH Total 60.2 ng/mL (>30)
[2022-10-20 16:18] LABS: Estimated Average Glucose 120 mg/dL; Hemoglobin A1C 150.2047 umol/L; Hemoglobin A1c % 5.8 %
== END 2022-10-20 08:43 | disposition home or self-care (01) ==
LOC: HO.HMGCLDS 08:42
PROVIDERS: PCP Internal Medicine; Visit Provider Internal Medicine
DX: E04.2 Nontoxic multinodular goiter (principal); R73.9 Hyperglycemia, unspecified; N95.0 Postmenopausal bleeding; E78.5 Hyperlipidemia, unspecified; E55.9 Vitamin D deficiency, unspecified; R10.9 Unspecified abdominal pain; A04.8 Other specified bacterial intestinal infections; K27.9 Peptic ulcer, site unspecified, unspecified as acute or chronic, without hemorrhage or perforation
CPT/HCPCS: 80053; 80061; 82306; 83036; 84443; 85025; 87338

== ENCOUNTER 2022-11-04 10:40 | Outpatient (AMB) | payer MEDICARE, MEDICAID, SELFPAY ==
[2022-11-04 10:43] VITALS: BP 108/60; PULSE 91; TEMP 36.2; O2SAT 96; BMI 33.0
--- NOTE | 2022-11-04 10:43 | MHC.OFFWIV ---
Intake Vital Signs 11/04/22 10:43 Height 5 ft 0.5 in Weight 172 lb BMI 33.0 BP 108/60 Blood Pressure Location Rt brachial Position Sitting Pulse 91 Pulse Source Pulse Oximeter Temp 97.2 F Temp Source Temporal Artery Scan Pulse Oximetry (%) 96 Oxygen Delivery Method Room Air Intake Visit Reasons: Ep, Pain in left side of abdomen Intake Note: Pt is here c/o left side hip and back pain for the last three days. Pt states no falls or injuries. Patient Tobacco Use Status: Never used Tobacco Allergies codeine Allergy (Intermediate, Verified 11/04/22 10:47) Headache Do you need a note to return to daycare/school/sports/work: No HPI Ep, Pain in left side of abdomen HPI Details 72-year-old female patient presents today with left lower back/ buttock pain for the last 5 days or so. Denies any injury or inciting event. She did have a long car ride home over the weekend which exacerbated this pain. She has been taking Advil with some mild relief. Denies any radiation of pain down her leg. Denies any numbness, weakness, saddle anesthesia. [facility] Medical History Abnormal skin growth Carpal tunnel syndrome Food allergic skin reaction Hyperlipidemia Multinodular thyroid Nephrolithiasis Right carpal tunnel syndrome Thoracic spine pain Thyroid nodule Tick bite Vitamin D deficiency Surgical History H/O colonoscopy Hx of appendectomy Hx of biopsy Hx of cholecystectomy Hx of mammogram Hx of shoulder surgery Family History Father No problems noted. Mother No problems noted. 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 Cognitive needs: No Hearing needs: No Vision needs: Yes Review of Systems Const All systems reviewed & are unremarkable except as noted in HPI and below Physical Exam Vital Signs: Last Vital Signs Temp 97.2 F 11/04/22 10:43 Pulse 91 11/04/22 10:43 BP 108/60 11/04/22 10:43 Pulse Ox 96 11/04/22 10:43 Oxygen Delivery Method Room Air 11/04/22 10:43 BMI result Body Mass Index 33.0 Const General: cooperative, healthy appearing and no acute distress Resp Effort & Inspection: normal respiratory effort and able to speak in complete sentences General: Yes no CVA tenderness Back/Spine/Pelvis Back: no CVA tenderness Cervical Spine: normal cervical lordosis and cervical ROM normal Thoracic/Lumbar Spine: thoracic and lumbar spine normal to inspection, thoraco-lumbar ROM normal and straight leg raise negative bilaterally Pelvis: buttock tenderness on the left Sacroiliac joints: on the left tender to palpation, by compression of iliac crest and by passive hyperextension of lower ext Skin General skin exam: no rashes or lesions noted Neuro General: gait normal, Normal light touch and pain sensation and deep tendon reflexes 2+ bilaterally Extrem Other: normal hip exam, IROT/EROT General: Yes capillary refill normal and Yes no clubbing, cyanosis or edema Psych Appearance: grossly normal Mental Status: mental status grossly normal Assessment & Plan Assessment & Plan (1) Inflammation of left sacroiliac joint: Code(s): M46.1 - Sacroiliitis, not elsewhere classified Plan: Patient presents with left sacroiliitis. We reviewed conservative measures for this including gentle stretching at home. I provided her with a printout of exercises she can do at home. She is also interested in physical therapy, for which I will enter referral. I will also start her on a short course of meloxicam to see if this provides some benefit. If she does not improve with these measures, or if symptoms persist or new symptoms develop, she should return to the clinic or see her PCP for further evaluation/referral. She agrees to plan. Orders: Orders PT Evaluation and Treatment Today M46.1 - Sacroiliitis, not elsewhere classified Medications: New meloxicam 7.5 mg PO DAILY 7 tabs 0RF 7 days M46.1 - Sacroiliitis, not elsewhere classified Coding Level of Care Code Est Pt Level 3 (56702) Diagnoses Inflammation of left sacroiliac joint M46.1
== END 2022-11-04 11:17 | disposition home or self-care (01) ==
PROVIDERS: PCP Internal Medicine; Visit Provider Nurse Practitioner Family
DX: M46.1 Sacroiliitis, not elsewhere classified (principal)
CPT/HCPCS: 99213

== ENCOUNTER 2022-11-04 14:53 | Outpatient (REF) | payer MEDICARE, MEDICAID, SELFPAY ==
--- NOTE | ~2022-11-04 | US_ITS ---
EXAMINATION: US VENOUS ULTRASOUND WITH DOPPLER LOWER EXTREMITY, RIGHT CLINICAL INFORMATION: Pain right lower extremity. COMPARISON: None available. TECHNIQUE: Ultrasound of the deep veins is performed from the hip to the calf with compression sonography and color and pulse Doppler assessment. Spectral analysis with color-flow imaging is performed. FINDINGS: There is normal venous compression and respiratory variation and augmented flow. The visualized common femoral vein, superficial femoral vein, profunda femoral vein, popliteal vein, and the trifurcation region shows no evidence of deep venous thrombosis. There is no significant popliteal fossa cyst. If the patient's symptoms persist, followup ultrasound in 5 days 7 days might be of value to exclude proximal propagation from a non-visualized calf vein. US/US venous duplex LE RT IMPRESSION: No DVT demonstrated in the right lower extremity.
== END 2022-11-04 14:54 | disposition home or self-care (01) ==
LOC: HO.US 14:53
PROVIDERS: PCP Internal Medicine; Visit Provider Internal Medicine
DX: M79.604 Pain in right leg (principal); R60.0 Localized edema
CPT/HCPCS: 93971

== ENCOUNTER 2022-11-06 11:06 | Outpatient (REF) | payer MEDICARE, MEDICAID, SELFPAY ==
[2022-11-06 13:40] LABS: Appearance Urine Clear; Color Urine Yellow; Glucose Urine UA Negative (Negative); Leukocyte Esterase Urine Trace (Negative); Nitrite Urine Negative (Negative); PH 5.5 (5.0-9.0); Specific Gravity - Urine 1.015 (1.005-1.025); UMIC TRIGGER UA YES; Urine Blood Negative (Negative); Urine Ketones Negative (Negative); Urine Protein Negative (Neg-Trace)
[2022-11-06 13:43] LABS: Bacteria Urine None Seen (None Seen); Hyaline Casts Urine 0-2 /LPF (0-2); RBC Urine 0-2 /HPF (0-2); Squamous Epithelial Cell Urine 0-2 /HPF (0-2); WBC Urine 0-5 /HPF (0-5)
== END 2022-11-06 11:07 | disposition home or self-care (01) ==
LOC: HO.HMGCLDS 11:06
PROVIDERS: PCP Internal Medicine; Visit Provider Internal Medicine
DX: N20.0 Calculus of kidney (principal)
CPT/HCPCS: 81001

== ENCOUNTER 2022-11-11 08:48 | Outpatient (RCR) | payer MEDICARE, MEDICAID, SELFPAY ==
--- NOTE | 2022-11-11 09:54 | MHC.PT.EP ---
[facility] [place] Office [place] Office [place] Office [address] Veronica Coleman [address] [phone] F: [phone] F: [phone] F: [phone] F: [phone] Physical Therapy Plan of Care Date of Evaluation: Date of Surgery: n/a Diagnosis: plantar fasciitis R foot Assessment: Patient is a 72 year old female presenting to PT with complaints of pain in her R foot. Pt reports onset of pain began about 2 months ago due to insidious onset. She presents today with impairments in pain, gastroc length, intrinsic foot strength, +ttp calcaneous and plantar fascia. Pt's current occupation is none, with baseline physical activities including ambulating, ADLs, gardening. Pt expresses senior care goal of reducing pain, and is motivated to work towards this in PT. Clinical presentation today is most consistent with signs and sx associated with possible R plantar fasciitis and pt will benefit from skilled PT 2 week x 4 weeks to address the following problems and impairments noted upon evaluation: pain, gastroc length, intrinsic foot strength, +ttp calcaneous and plantar fascia. These problems limit the patient with the following functional activities: ambulating, ADLs, gardening. The prescribed treatment plan of care is medically necessary. Co-morbidities of none were identified and taken into considerations of plan of care. Pt was educated on HEP, role of PT, prognosis, POC. Frequency and Duration: The patient will be seen 2 x week x 4 weeks Short Term Goals: Pt will demonstrate improved R gastroc muscle length in 2 weeks. Pt will demonstrate pain free MMT on R in 2 weeks. Title I Assistant Goals: Pt will demonstrate ability to ambulate with min to no pain in 4 weeks for improved access to the community. Pt will demonstrate ability to complete her gardening with min to no pain in 4 weeks for return to PLOF. Treatment Plan: Modalities to reduce pain, spasms and effusion. Manual therapy to restore motion and function. Therapeutic exercise to improve strength and flexibility. Neuromuscular re-education for posture and balance. Therapeutic activities to return to functional activities of daily living. Electronically signed by: Isabell Fitzgerald, PT, DPT, ATC Please sign and return to therapist. Thank you for your referral.
--- NOTE | 2022-11-18 11:51 | MHC.PT.DC ---
[facility] [place] [facility] [place] Office [place] Office [address] [phone] F: [phone] F: [phone] F: [phone] F: [phone] Physical Therapy Discharge Report Diagnosis: plantar fasciitis R foot Date of Surgery: n/a Date of Evaluation: 11/11/22 Date of Discharge: 11/18/22 Treatments to Date: 1 Cancellations to Date: No Shows to Date: Discharge Status: Patient Elected to Stop Discharge Summary: Pt called and self d/c. Pt did not specify reason. Electronically signed by: Isabell Fitzgerald, PT, DPT, ATC Please sign and return to therapist. Thank you for your referral.
== END 2022-11-18 11:51 | disposition home or self-care (01) ==
LOC: HO.PTCHIC 08:48
PROVIDERS: PCP Internal Medicine; Visit Provider Internal Medicine
DX: M72.2 Plantar fascial fibromatosis (principal)
CPT/HCPCS: 97110; 97161

== ENCOUNTER 2022-11-21 09:44 | Outpatient (AMB) | payer MEDICARE, MEDICAID, SELFPAY ==
--- NOTE | 2022-11-21 10:40 | AM.OFFWIN_ITS ---
Intake Vital Signs 11/21/22 10:45 Weight 174 lb BP 118/70 Blood Pressure Location Lt brachial Position Sitting Pulse 74 Pulse Source Pulse Oximeter Temp 97.5 F Temp Source Temporal Artery Scan Pulse Oximetry (%) 97 Oxygen Delivery Method Room Air Intake Visit Reasons: EP, Rash on left side of abdomen Intake Note: Patient here because on she was stung by a yellow jacket and has now developed a very sensitive rash on the left side of waist/hip area. Patient Tobacco Use Status: Never used Tobacco Allergies codeine Allergy (Intermediate, Verified 11/21/22 11:07) Headache Medication List - Last Reconciled 11/21/22 by Mann Finn MD amoxicillin 500 mg PO TID calcium citrate 500 mg (2 x 250 mg calcium) PO DAILY 30 days cholecalciferol (vitamin D3) 50 mcg PO DAILY omeprazole 20 mg PO DAILY Do you need a note to return to daycare/school/sports/work: No HPI EP, Rash on left side of abdomen HPI Details 72-year-old female presents to the office for a sick visit. Patient was stung by a yellow jacket. She has a large a rash on the left side of her abdomen. It is very itchy. She would like to get an EpiPen. [facility] Medical History Abnormal skin growth Carpal tunnel syndrome Food allergic skin reaction Hyperlipidemia Multinodular thyroid Nephrolithiasis Right carpal tunnel syndrome Thoracic spine pain Thyroid nodule Tick bite Vitamin D deficiency Surgical History H/O colonoscopy Hx of appendectomy Hx of biopsy Hx of cholecystectomy Hx of mammogram Hx of shoulder surgery Family History Father No problems noted. Mother No problems noted. 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 Cognitive needs: No Hearing needs: No Vision needs: Yes Physical Exam Vital Signs: Last Vital Signs Temp 97.5 F 11/21/22 10:45 Pulse 74 11/21/22 10:45 BP 118/70 11/21/22 10:45 Pulse Ox 97 11/21/22 10:45 Oxygen Delivery Method Room Air 11/21/22 10:45 Const General: cooperative and healthy appearing Nutritional Appearance: well nourished Orientation/consciousness: patient oriented x3 Limitations: no limitations HEENT Head: Yes normal to inspection Eyes General: appearance normal, both eyes and all related structures Neck Neck: Yes normal visual inspection Chest Chest palpation & inspection: normal palpation of entire chest wall Resp Effort & Inspection: normal respiratory effort Skin Other: Large erythematous rash on the left side of the abdomen with central hyperemia. Increased warmth. No induration. 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 Coding Level of Care Code Est Pt Level 3 (19586) Diagnoses Bee sting allergy Z91.030
[2022-11-21 10:45] VITALS: BP 118/70; PULSE 74; TEMP 36.4; O2SAT 97
== END 2022-11-21 11:21 | disposition home or self-care (01) ==
PROVIDERS: PCP Internal Medicine; Visit Provider Internal Medicine
DX: Z91.030 Bee allergy status (principal)
CPT/HCPCS: 99213

== ENCOUNTER 2023-06-05 12:02 | Outpatient (AMB) | payer MEDICARE, MEDICAID, SELFPAY ==
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
[2023-06-05 12:07] VITALS: BP 110/64; PULSE 71; O2SAT 96; BMI 32.1
== END 2023-06-05 13:18 | disposition home or self-care (01) ==
PROVIDERS: PCP Internal Medicine; Visit Provider Internal Medicine
DX: G56.01 Carpal tunnel syndrome, right upper limb (principal); M25.531 Pain in right wrist; M54.2 Cervicalgia; E78.5 Hyperlipidemia, unspecified
CPT/HCPCS: 99214

== ENCOUNTER 2023-06-05 13:09 | Outpatient (REF) | payer MEDICARE, MEDICAID, SELFPAY ==
--- NOTE | ~2023-06-05 | XR_ITS ---
EXAMINATION: XR CERVICAL SPINE XR ELBOW, RIGHT CLINICAL INFORMATION: Neck pain, pain in right elbow. COMPARISON: None available. TECHNIQUE: 3 views of the right elbow. AP and lateral views of the cervical spine. FINDINGS: CERVICAL SPINE: Advanced multilevel degenerative changes with large anterior osteophytes and loss of disc space height at the C3-C4-C5-C6 levels. Loss of the C7-C6 disc space with hypertrophic change and possible fusion, although evaluation is limited due to overlying soft tissues. Minimal anterolisthesis of C2 on C3. RIGHT ELBOW: Alignment preserved. Prominent hypertrophic change/exostosis along the ulnar aspect of the medial epicondyle and olecranon. XR/XR elbow RT min 3V IMPRESSION: 1. Advanced multilevel degenerative disc disease in the cervical spine. 2. Prominent hypertrophic change/exostosis along the ulnar aspect of the medial epicondyle of the humerus and olecranon.
--- NOTE | ~2023-06-05 | XR_ITS ---
EXAMINATION: XR CERVICAL SPINE XR ELBOW, RIGHT CLINICAL INFORMATION: Neck pain, pain in right elbow. COMPARISON: None available. TECHNIQUE: 3 views of the right elbow. AP and lateral views of the cervical spine. FINDINGS: CERVICAL SPINE: Advanced multilevel degenerative changes with large anterior osteophytes and loss of disc space height at the C3-C4-C5-C6 levels. Loss of the C7-C6 disc space with hypertrophic change and possible fusion, although evaluation is limited due to overlying soft tissues. Minimal anterolisthesis of C2 on C3. RIGHT ELBOW: Alignment preserved. Prominent hypertrophic change/exostosis along the ulnar aspect of the medial epicondyle and olecranon. XR/XR cervical spine 2V IMPRESSION: 1. Advanced multilevel degenerative disc disease in the cervical spine. 2. Prominent hypertrophic change/exostosis along the ulnar aspect of the medial epicondyle of the humerus and olecranon.
== END 2023-06-05 13:10 | disposition home or self-care (01) ==
LOC: HO.HMGCX 13:09
PROVIDERS: PCP Internal Medicine; Visit Provider Internal Medicine
DX: M25.531 Pain in right wrist (principal); M54.2 Cervicalgia
CPT/HCPCS: 72040; 73080

== ENCOUNTER 2023-06-12 09:01 | Outpatient (REF) | payer MEDICARE, MEDICAID, SELFPAY ==
[2023-06-12 10:30] LABS: MANUAL DIFF FLAG NO
[2023-06-12 10:34] LABS: Eosinophils Percent Auto 3.6 % (0-4); Hematocrit 41.6 % (37.0-47.0); Hemoglobin 14.3 g/dl (12.0-16.0); Imm Gran Pct Auto 0.2 % (0.0-0.4); Lymphocytes Percent Auto 50.1 % (20-40); Mean Corpuscular HGB Conc 34.4 g/dl (31.0-35.0); Mean Corpuscular Hemoglobin 32.1 pg (27.0-33.0); Mean Corpuscular Volume 93.3 fL (80.0-98.0); Mean Platelet Volume 9.6 fL (9.4-12.3); Monocytes Percent Auto 8.7 % (2-11); Neutrophils Percent Auto 36.6 % (45-73); Platelet Count 244 X10*3/uL (160-400); Red Blood Count 4.46 X10*6/uL (4.20-5.50); Red Cell Distribution Width 12.3 % (11.0-16.0); White Blood Count 5.3 X10*3/uL (4.8-10.8)
[2023-06-12 10:35] LABS: Basophils Percent Auto 0.8 % (0-2); Eosinophils Absolute Auto 0.2 X10*3/uL (0.0-0.4); Imm Gran Abs Auto 0.01 X10*3/uL (0.00-0.03); Lymphocytes Absolute Auto 2.7 X10*3/uL (1.2-4.9); Monocytes Absolute Auto 0.5 X10*3/uL (0.1-1.2); Neutrophils Absolute Auto 1.9 x10*3/uL (2.0-8.3)
[2023-06-12 10:50] LABS: Alanine Aminotransferase 18 U/L (0-31); Alkaline Phosphatase 83 U/L (39-117); Anion Gap 11 (12-20); Aspartate Amino Transferase 27 U/L (5-31); Bilirubin Total 0.5 mg/dL (0.0-1.0); Blood Urea Nitrogen 11 mg/dL (9-16); Carbon Dioxide 27 mmol/L (22-29); Chloride 106 mmol/L (96-108); Cholesterol 183 mg/dL (<200); Estimated Glomerular Filt Rate > 60; Glucose Fasting 111 mg/dL (60-99); HDL Cholesterol 40 mg/dL (>40); LDL Cholesterol Calculated 121 mg/dL (<100); Potassium 3.7 mmol/L (3.3-5.1); Sodium 140 mmol/L (135-145); Triglycerides 112 mg/dL (<150)
[2023-06-12 10:51] LABS: Estimated Average Glucose 114 mg/dL; Hemoglobin A1c % 5.6 % (<6.0)
== END 2023-06-12 09:02 | disposition home or self-care (01) ==
LOC: HO.HMGCLDS 09:01
PROVIDERS: PCP Internal Medicine; Visit Provider Internal Medicine
DX: R73.9 Hyperglycemia, unspecified (principal); E78.5 Hyperlipidemia, unspecified
CPT/HCPCS: 36415; 80053; 80061; 83036; 85025

== ENCOUNTER 2023-06-13 08:00 | Outpatient (REF) | payer MEDICARE, MEDICAID, SELFPAY ==
[2023-06-13 14:07] LABS: Creatinine Urine 57.11 mg/dL; Microalbumin Urine < 5.0 mg/L
== END 2023-06-13 08:01 | disposition home or self-care (01) ==
LOC: HO.HMGCLNP 08:00
PROVIDERS: PCP Internal Medicine; Visit Provider Internal Medicine
DX: R73.9 Hyperglycemia, unspecified (principal); E78.5 Hyperlipidemia, unspecified
CPT/HCPCS: 82043; 82570

== ENCOUNTER 2023-06-25 13:19 | Outpatient (REF) | payer MEDICARE, MEDICAID, SELFPAY ==
--- NOTE | 2023-06-25 13:28 | EMG_ITS ---
Chief complaint: Right wrist pain, numbness on 4th and 5th digits, elbow pain, arm pain Reason for referral: Evaluate for ulnar neuropathy Referred by: Dr. Stoner Procedure done: Right upper extremity NCS/EMG Precautions and/or limitations: None The limb temperature was monitored continuously and remained between 32-36 degrees C during the performance of the NCS. Ulnar motor NCS was performed with moderate elbow flexion between 70-90 degrees, with across-elbow distance of 10 cm. Nerve Conduction Studies Anti Sensory Summary Table ?Stim Site NR Onset (ms) Norm Onset (ms) Peak (ms) Norm Peak (ms) O-P Amp (?V) Norm O-P Amp Site1 Site2 Delta-0 (ms) Dist (cm) Nitesh (m/s) Norm Nitesh (m/s) Right Median Anti Sensory (2nd Digit) Wrist ? 2.8 3.5 <3.6 18.7 >10 Wrist 2nd Digit 2.8 14.0 50 Right Ulnar Anti Sensory (5th Digit) Wrist ? 0.9 2.9 <3.7 11.0 >15.0 Wrist 5th Digit 0.9 14.0 156 Motor Summary Table ?Stim Site NR Onset (ms) Norm Onset (ms) O-P Amp (mV) Norm O-P Amp iAmp (mV) Amp (1st) (%) Site1 Site2 Delta-0 (ms) Dist (cm) Nitesh (m/s) Norm Nitesh (m/s) Right Median Motor (Abd Poll Brev) Wrist ? 3.9 <3.9 7.6 >4.5 8.9 100.0 Elbow Wrist 3.4 18.0 53 >45 Elbow ? 7.3 7.3 8.6 96.1 Right Ulnar Motor (Abd Dig Minimi) Wrist ? 2.7 <3.0 7.9 >5 9.7 100.0 B Elbow Wrist 2.8 17.0 61 >45 B Elbow ? 5.5 7.9 9.6 100.0 A Elbow B Elbow 1.5 10.0 67 >45 A Elbow ? 7.0 7.4 9.4 93.7 Right Ulnar Motor (FDI) Wrist ? 3.6 <3.0 4.9 >5 6.1 100.0 B Elbow Wrist 3.0 17.0 57 >45 B Elbow ? 6.6 4.5 5.5 91.8 A Elbow B Elbow 2.0 10.0 50 >45 A Elbow ? 8.6 3.5 4.5 71.4 Comparison Summary Table ?Stim Site NR Peak (ms) Norm Peak (ms) P-T Amp (?V) Site1 Site2 Delta-P (ms) Norm Delta (ms) Right Median/Radial Dig I Comparison (Digit 1 - 10cm) Median ? 2.8 <2.9 43.4 Median Radial 0.5 Radial ? 2.3 <2.8 17.5 EMG ?Side Muscle Nerve Root Ins Act Fibs Psw Amp Dur Poly Recrt Int Pat Comment Right 1stDorInt Ulnar C8-T1 Nml Nml Nml Nml Nml 0 Nml Complete Right Biceps Musculocut C5-6 Nml Nml Nml Nml Nml 0 Nml Complete Right Triceps Radial C6-7-8 Nml Nml Nml Nml Nml 0 Nml Complete Right Deltoid Axillary C5-6 Nml Nml Nml Nml Nml 0 Nml Complete Right FlexCarpiUln Ulnar C8,T1 Nml Nml Nml Nml Nml 0 Nml Complete FINDINGS: Right ulnar nerve, recording FDI, showed prolonged distal latency, small amplitude and slight slowing of conduction velocity across the elbow. Right ulnar sensory nerve showed small amplitude. All other nerves tested were within normal. Concentric needle EMG was performed in selected muscles of the right upper extremity. Study did not reveal signs of electric abnormalities as shown in the table below. IMPRESSION: 1. This is an abnormal study. 2. 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 3. There is no electrodiagnostic evidence for median neuropathy, brachial plexopathy, or cervical radiculopathy. Thank you for your kind referral. Faith Emmanuel MD, PRANEETH Board Certified, [place] Board of Physical Medicine and Rehabilitation (ABPMR) Board Certified, [place] Board of Electrodiagnostic Medicine (ABEM) [place] [id number] [facility]
== END 2023-06-25 13:20 | disposition home or self-care (01) ==
LOC: HO.NEURO 13:19
PROVIDERS: PCP Internal Medicine; Visit Provider Internal Medicine
DX: G56.01 Carpal tunnel syndrome, right upper limb (principal); M25.531 Pain in right wrist
CPT/HCPCS: 95886; 95909

== ENCOUNTER → 2023-06-25 13:28 | Outpatient (BNV) | payer MEDICARE, MEDICAID, SELFPAY | PROVIDERS: PCP Internal Medicine; Visit Provider Physical Medicine & Rehabilitation | DX: G56.21 Lesion of ulnar nerve, right upper limb (principal) | CPT/HCPCS: 95886; 95909 ==

== ENCOUNTER 2023-07-20 09:58 | Outpatient (REF) | payer MEDICARE, MEDICAID, SELFPAY ==
--- NOTE | ~2023-07-20 | US_ITS ---
EXAMINATION: US THYROID CLINICAL INFORMATION: Nontoxic multinodular goiter. COMPARISON: Thyroid ultrasound 07/10/2022. Ultrasound-guided thyroid biopsy 06/20/2021. Thyroid ultrasound 02/18/2021. Ultrasound-guided thyroid biopsy 07/05/2020. TECHNIQUE: Linear transducer valdez-scale and color Doppler examination with attention to the region of the thyroid. FINDINGS: SIZE: Measurements of the thyroid lobes and nodules are given in sagittal, anteroposterior and transverse dimensions, respectively. Right Thyroid Lobe: 7.4 x 3.9 x 2.5 cm, volume 37.4 mL. Previously 5.5 x 3.1 x 2.7 cm, volume 24.3 mL. Parenchyma: The gland echotexture is heterogeneous. Thyroid vascularity is normal. Left Thyroid Lobe: 5.0 x 1.8 x 1.8 cm, volume 8.2 mL. Previously 4.8 x 2.0 x 1.4 cm, volume 6.9 mL. Parenchyma: The gland echotexture is homogeneous. Thyroid vascularity is normal. Isthmus: 0.40 cm in maximum AP dimension. Previously 0.30 cm. Estimated total number of nodules greater than or equal to 1 cm: 1. [employer] Professor nodules are described as follows: 1. Location: Isthmus. Size: 0.90 x 0.35 x 0.60 cm, volume 0.10 mL. Previously: 0.90 x 0.40 x 0.70 cm, volume 0.11 mL. Nodule characteristics: Composition: Spongiform (0). Echogenicity: Anechoic (0). Shape: Not taller than wide (0). Margins: Smooth (0). Echogenic Foci: None (0). ACR TI-RADS total points: 0. Previous: 3. ACR TI-RADS category: 1. Previous: 3. Significant change in size (>/= 20% in 2 dimensions and minimal increase of 2 mm or 50% or greater increase in volume): No. Change in features: Yes. Change in ACR TI-RADS risk category: Yes, decreased. 2. Location: Right inferior. Size: 2.6 x 1.7 x 2.0 cm, volume 4.5 mL. Previously: 3.6 x 1.7 x 1.8 cm, volume 5.7 mL. Nodule characteristics: Composition: Solid/almost completely solid (2). Echogenicity: Isoechoic (1). Shape: Not taller than wide (0). Margins: Smooth (0). Echogenic Foci: None (0). ACR TI-RADS total points: 3. Previous: 3. ACR TI-RADS category: 3. Previous: 3. Significant change in size (>/= 20% in 2 dimensions and minimal increase of 2 mm or 50% or greater increase in volume): Yes, decreased. Change in features: No. Change in ACR TI-RADS risk category: No. 3. Location: Right inferior. Size: 0.85 x 0.50 x 0.70 cm, volume 0.16 mL. Previously: Not seen on the previous study. Nodule characteristics: Composition: Cystic(0). ACR TI-RADS total points: 0. ACR TI-RADS category: 1. 4. Location: Left inferior. Size: 0.42 x 0.28 x 0.40 cm, volume 0.02 mL. Previously: Not seen on the previous study. Nodule characteristics: Composition: Spongiform (0). Echogenicity: Anechoic (0). Shape: Not taller than wide (0). Margins: Smooth (0). Echogenic Foci: None (0). ACR TI-RADS total points: 0. ACR TI-RADS category: 1. NODES: No lymphadenopathy is seen in the tissue surrounding the thyroid gland. US/US thyroid IMPRESSION: Only one nodule seen warrants follow-up and that would be nodule #2 above, the right inferior nodule which is actually decreased in size with a maximum dimension of about 2.6 cm which still warrants biopsy. A thyroid biopsy was performed on 08/20/2021 and it seems that this mass as well as the one in the isthmus were biopsied. Please correlate with the pathologic report. ACR TI-RADS RECOMMENDATION REFERENCE: Ultrasound-guided fine-needle aspiration, follow up ultrasound, no further followup. * TR1 (0 point) and TR2 (2 points): No FNA or followup * TR3 (3 points): FNA if more than or equal to 2.5 cm in maximum dimension, follow up ultrasound in 1, 3 and 5 years if 1.5 to 2.4 cm in maximum dimension. * TR4 (4-6 points): FNA if more than or equal to 1.5 cm in maximum dimension, follow up ultrasound in 1, 2, 3 and 5 years if 1 to 1.4 cm in maximum dimension. * TR5 (more than or equal to 7 points): FNA if more than or equal to 1 cm in maximum dimension, follow up ultrasound every year for 5 years if 0.5 to 0.9 cm in maximum dimension. * TR3, TR4 or TR5 nodules that are below the size threshold for follow up receive no followup.
== END 2023-07-20 09:59 | disposition home or self-care (01) ==
LOC: HO.HMGCX 09:58
PROVIDERS: PCP Internal Medicine; Visit Provider Internal Medicine Endocrinology, Diabetes & Metabolism
DX: E04.2 Nontoxic multinodular goiter (principal)
CPT/HCPCS: 76536

== ENCOUNTER 2023-12-02 09:12 | Outpatient (AMB) | payer MEDICARE, MEDICAID, SELFPAY ==
--- NOTE | 2023-12-02 09:13 | MHC.OFFWIV ---
Intake Vital Signs 12/02/23 09:14 Height 5 ft 0.5 in Weight 171 lb BMI 32.8 BP 112/74 Blood Pressure Location Lt brachial Position Sitting Pulse 69 Pulse Source Pulse Oximeter Temp 98.1 F Temp Source Oral Pulse Oximetry (%) 98 Oxygen Delivery Method Room Air Intake Visit Reasons: EP-lower back pain Intake Note: pt c/o RT side lower back pain, abdominal cramps. Started 3 days ago Patient Tobacco Use Status: Never used Tobacco Allergies codeine Allergy (Intermediate, Verified 12/02/23 09:14) Headache Do you need a note to return to daycare/school/sports/work: No HPI HPI Comments History of Present Illness Details Patient is a 73yo F who presents to office with back pain Hx of L sided kidney stones, chronic hip pain, back pain Abdominal surgery hx is cholecysectomy and appendectomy R sided flank and some lower abdomen cramps Ongoing for a few days Trying to drink lots of fluids without relief Advil with some relief She noticed urine has slight dark discoloration darker Today she said it very yellow Slight dysuria with urination Denies fever or chills + nausea and fatigue No CP or SOB PFSH Medical History Abnormal skin growth Carpal tunnel syndrome Food allergic skin reaction Hyperlipidemia Multinodular thyroid Nephrolithiasis Right carpal tunnel syndrome Thoracic spine pain Thyroid nodule Tick bite Vitamin D deficiency Surgical History H/O colonoscopy Hx of appendectomy Hx of biopsy Hx of cholecystectomy Hx of mammogram Hx of shoulder surgery Family History Father No problems noted. Mother No problems noted. 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 Cognitive needs: No Hearing needs: No Vision needs: Yes Review of Systems Const Denies chills, Reports fatigue and Denies fever(s) Card Denies chest pain, Denies rapid heart rate and Denies dyspnea Resp Denies cough and Denies dyspnea GI Reports abdominal pain (cramping), Denies melena, Denies hematochezia, Denies change in bowel habits, Reports GI cramping, Denies diarrhea, Denies loose stools, Reports nausea and Denies vomiting Reports dysuria, Denies urinary incontinence, Denies urinary hesitancy, Denies urinary urgency and Reports other (slightly dark urine but no hematuria) Musc Reports back pain and Denies myalgias Skin/Breast Denies rash Endo Reports fatigue Physical Exam Vital Signs: Last Vital Signs Temp 98.1 F 12/02/23 09:14 Pulse 69 12/02/23 09:14 BP 112/74 12/02/23 09:14 Pulse Ox 98 12/02/23 09:14 Oxygen Delivery Method Room Air 12/02/23 09:14 BMI result Body Mass Index 32.8 General: Non-toxic, NAD. Speaking full sentences. Skin: Warm dry throughout. No rash to back or flank. No rash to abdomen Respiratory: CTA bilaterally. No wheezes, rales or rhonchi Cardiac: RRR. No murmur Abdomen: BS present x 4. Tenderness to palpation R flank and RLQ. No rebound or guarding. MSK: Full ROM extremities. No midline spinal tenderness. Neurology: A/O x 3. CN 2-12 grossly intact. No aphasia or facial droop. Gait without abnormality and able to easily get on and off examination able without difficulty. Psych: Good mood and affect Results AMB Urinalysis, Automated UA Leukoctes 0 Guera/uL Last Edit by Tushar Choi CMA on 12/02/23 09:56 UA Nitrite Negative Last Edit by Tushar Choi CMA on 12/02/23 09:56 UA Urobilinogen 0.2 mg/dL Last Edit by Tushar Choi CMA on 12/02/23 09:56 UA Protein 0 mg/dL Last Edit by Tushar Choi CMA on 12/02/23 09:56 UA pH 6.0 Last Edit by Tushar Choi CMA on 12/02/23 09:56 UA Blood 0 Hayden/uL Last Edit by Tushar Cohi CMA on 12/02/23 09:56 UA Specific [place] 1.010 Last Edit by Tushar Choi CMA on 12/02/23 09:56 UA Ketone Negative Last Edit by Tushar Choi CMA on 12/02/23 09:56 UA Bilirubin 0 mg/dL Last Edit by Tushar Choi CMA on 12/02/23 09:56 UA Glucose 0 mg/dL Last Edit by Tushar Choi CMA on 12/02/23 09:56 Assessment & Plan Assessment & Plan (1) Right flank pain: Code(s): R10.9 - Unspecified abdominal pain Plan: Patient seen and evaluated. differential includes zoster (no rash present), lumbar muscle pain, nephrolithiasis (u/a pending), UTI (u/a pending), pyelonephritis (unlikely do due stable vital signs and no overt UTi symptoms but u/a pending) WIll obtain urine in office: normal. No concern UTI, peylo or nephro We dicussed monitor for rash consistent with shingles She will trial methocarbamol at night (lethargy. No alcohol or driving). Advil prn during day but educated on kidney abnormality with overuse Warm compress back Monitor for worsening s/s such as urine retention, hematuria, brbpr, melena, increase pain, fevers etc and seek eval immediately Patient gave verbal understanding and had no additional questions or concerns at time of discharge All questions answered Orders: Orders AMB Urinalysis Automated Today Z13.9 - Encounter for screening, unspecified Medications: New methocarbamol 500 mg PO TID PRN 14 tabs 0RF pain Coding Level of Care Code Est Pt Level 3 (92272) Diagnoses Right flank pain R10.9
[2023-12-02 09:14] VITALS: BP 112/74; PULSE 69; TEMP 36.7; O2SAT 98; BMI 32.8
== END 2023-12-02 10:17 | disposition home or self-care (01) ==
PROVIDERS: PCP Internal Medicine; Visit Provider Physician Assistant
DX: R10.9 Unspecified abdominal pain (principal); R30.0 Dysuria
CPT/HCPCS: 81003; 99213

== ENCOUNTER 2024-01-20 13:56 | Outpatient (AMB) | payer MEDICARE, MEDICAID, SELFPAY ==
[2024-01-20 14:09] VITALS: BP 110/66; PULSE 78; O2SAT 96; BMI 32.3
--- NOTE | 2024-01-20 14:09 | A.OFFPC_ITS ---
Vital Signs 01/20/24 14:09 Height 5 ft 0.5 in Weight 168 lb BMI 32.3 BP 110/66 Blood Pressure Location Lt brachial Position Sitting Pulse 78 Pulse Source Pulse Oximeter Pulse Oximetry (%) 96 Oxygen Delivery Method Room Air Intake Visit Reasons: Kidney concerns Intake Note: Pt is here today for a sick visit. Pt c/o R side lower back pain kidney area that radiates to her abdomen. Allergies codeine Allergy (Intermediate, Verified 01/20/24 14:11) Headache Medication List - Last Reconciled 01/20/24 by Teressa Stoner MD ascorbate calcium (vitamin C) 500 mg PO DAILY calcium carb-D3-mag ox-zinc ox 333 mg-133 unit -133 mg-5 mg (Eric Mag Zinc Plus D3) tabs PO calcium citrate 500 mg (2 x 250 mg calcium) PO DAILY 30 days cholecalciferol (vitamin D3) 50 mcg PO DAILY coenzyme Q10 (CoQ-10) 100 mg PO DAILY epinephrine 0.3 mg (0.3 mL) IM Q4H PRN magnesium 250 mg PO DAILY Tobacco use date assessed: 06/05/23 Dental Screening Dental Screen Date: 06/05/23 HPI Kidney concerns HPI Details Pt c/o R flank pain on and off radiating to R groin on and off for 1 month. Pt denies hematuria, dysuria, nausea vomiting. PFSH Medical History (Updated 01/20/24 @ 14:43 by Teressa Stoner MD) Tick bite Right carpal tunnel syndrome Food allergic skin reaction Thoracic spine pain Carpal tunnel syndrome Abnormal skin growth Vitamin D deficiency Multinodular thyroid Thyroid nodule Hyperlipidemia Surgical History (Updated 01/20/24 @ 14:44 by Teressa Stoner MD) Hx of biopsy Hx of mammogram Hx of shoulder surgery Hx of cholecystectomy Hx of appendectomy H/O colonoscopy Family History Father No problems noted. Mother No problems noted. 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 1. Little interest or pleasure in doing things: not at all 2. Feeling down, depressed, or hopeless: not at all 3. Trouble falling or staying asleep, or sleeping too much: not at all 4. Feeling tired or having little energy: not at all 5. Poor appetite or overeating: not at all 6. Feeling bad about yourself - or that you are a failure or have let yourself or your family down: not at all 7. Trouble concentrating on things, such as reading the newspaper or watching television: not at all 8. Moving or speaking so slowly that other people could have noticed. Or the opposite - being so fidgety or restless that you have been moving around a lot more than usual: not at all 9. Thoughts that you would be better off or of hurting yourself in some way: not at all Total score: 0 Depression Screening Interpretation: Negative Depression Screening Done: Yes 78638 - PHQ-9 Billing: Yes Source: Developed by Drs. Alcides Cervantes, Arline Giraldo, Audie Broderick and colleagues, with an educational palomo from [employer]. Thrive Questionnaire Date Thrive assessed: 01/20/24 I am a: Patient What is your living situation today?: I have a steady place to live Within the past 12 months, did the food you bought not last and you didn't have the money to get more?: Never true Within the past 12 months, did you worry whether your food would run out before you got money to buy more?: Never true Do you have trouble paying for medicines?: No Do you have trouble getting transportation to medical appointments?: No Do you have trouble paying your heating and electricity bill?: No Do you have trouble taking care of your child, family member or friend?: No Do you have trouble with day-to-day activities such as bathing, preparing meals, shopping, managing finances, etc.?: No Are you currently unemployed and looking for a job?: No Are you interested in more education?: No Please select the resources that you would like help with: None THRIVE Score: 0 PIETRO-7 AMB Questionnaire PIETRO-7 Date PIETRO - 7 assessed: 01/20/24 Feeling nervous, anxious, or on edge: 0 = Not at all Not being able to stop or control worryin = Not at all Worrying too much about different things: 0 = Not at all Trouble relaxin = Not at all Being so restless that it is hard to sit still: 0 = Not at all Becoming easily annoyed or irritable: 0 = Not at all Feeling afraid as if something awful might happen: 0 = Not at all Total PIETRO-7 score (0-4 normal; 5-9 mild; 10-14 moderate; 15-21 severe): 0 Source: Developed by Drs. Alcides Cervantes, Arline Giraldo, Audie Broderick and colleagues, with an educational palomo from [employer]. PIETRO-7 Assessment Billing PIETRO-7 Assessment Tool: PIETRO-7 Assessment 00391 Review of Systems Const All systems reviewed & are unremarkable except as noted in HPI and below Reports no additional complaints Eyes Reports no additional complaints ENT Reports no additional complaints Card Reports no additional complaints Resp Reports no additional complaints GI Reports no additional complaints Reports no additional complaints Musc Reports no additional complaints Physical exam (Primary Care) Vital Signs: Last Vital Signs Pulse 78 01/20/24 14:09 BP 110/66 01/20/24 14:09 Pulse Ox 96 01/20/24 14:09 Oxygen Delivery Method Room Air 01/20/24 14:09 BMI result Body Mass Index 32.3 Tobacco/Smoking Status: Tobacco use Status Tobacco use date assessed 06/05/23 01/20/24 14:16 Patient Tobacco Use Status Never used Tobacco 01/20/24 14:16 e-Cigarette/Vaping Use Never Used 01/20/24 14:16 PHQ-9: PHQ-9 Score PHQ-9: Total score 0 01/20/24 14:16 Depression Screening Interpretation: Negative Thrive Assessment: Date of Thrive Assessment Date Thrive assessed 01/20/24 01/20/24 14:16 Const General: no acute distress HENMT Head: Yes normal to inspection Ears: hearing grossly normal bilaterally Throat: Yes posterior oropharynx normal Eyes General: appearance normal, both eyes and all related structures Neck Neck: Yes no lymphadenopathy and Yes supple Resp Effort & Inspection: normal respiratory effort Auscultation: clear to auscultation bilaterally Cardio Rhythm: regular rhythm Heart sounds: S1 normal heart sound present and S2 normal heart sound present GI Inspection: Yes normal to inspection Palpation (GI): Soft to palpation Percussion: Yes normal to percussion Auscultation: normal bowel sounds Coding Level of Care Code Est Pt Level 4 (56107) Diagnoses Nephrolithiasis N20.0 Aortic aneurysm I71.9 H/O colonoscopy Z98.890 Additional Codes PIETRO-7 Assessment Billing - PIETRO-7 Assessment Tool: PIETRO-7 Assessment 36966 ([id number]) Assessment & Plan Assessment & Plan (1) Nephrolithiasis: Code(s): N20.0 - Calculus of kidney Category: Medical Plan: Schedule renal ultrasound to follow-up on nephrolithiasis (2) Aortic aneurysm: Comment: schedule CT of thoracic and abd aorta 12/2023 Code(s): I71.9 - Aortic aneurysm of unspecified site, without rupture Category: Medical Plan: Schedule CT of thoracic and abdominal aorta to evaluate for aortic aneurysm (3) H/O colonoscopy: Comment: 2018 at [place] 1 polyp repeat 5 years Code(s): Z98.890 - Other specified postprocedural states Category: Surgical Plan: Referred to GI for repeat colonoscopy Orders: Orders US renal BI Today N20.0 - Calculus of kidney CT angio abd aorta runoff Today I71.9 - Aortic aneurysm of unspecified site, without rupture Comprehensive Met. Panel Today R10.9 - Unspecified abdominal pain CT angio chest aorta Today I71.9 - Aortic aneurysm of unspecified site, without rupture Referrals Gastroenterology Referral Z00.00 - Encounter for general adult medical examination without abnormal findings
== END 2024-01-20 14:45 | disposition home or self-care (01) ==
LOC: HO.HMCC 13:56
PROVIDERS: PCP Internal Medicine; Visit Provider Internal Medicine
DX: N20.0 Calculus of kidney (principal); I71.9 Aortic aneurysm of unspecified site, without rupture; Z98.890 Other specified postprocedural states

== ENCOUNTER → 2024-01-20 13:56 | Outpatient (BNVA) | payer MEDICARE, MEDICAID, SELFPAY | PROVIDERS: PCP Internal Medicine; Visit Provider Internal Medicine | DX: N20.0 Calculus of kidney (principal); I71.9 Aortic aneurysm of unspecified site, without rupture; Z98.890 Other specified postprocedural states | CPT/HCPCS: 96127; 99212 ==

== ENCOUNTER 2024-02-02 08:46 | Outpatient (REF) | payer MEDICARE, MEDICAID, SELFPAY ==
[2024-02-02 11:19] LABS: Alanine Aminotransferase 14 U/L (0-31); Albumin Level 3.9 g/dL (3.5-5.0); Alkaline Phosphatase 76 U/L (39-117); Anion Gap 12 (12-20); Aspartate Amino Transferase 28 U/L (5-31); Bilirubin Total 0.5 mg/dL (0.0-1.0); Blood Urea Nitrogen 15 mg/dL (9-16); Calcium 9.3 mg/dL (8.4-10.2); Carbon Dioxide 24 mmol/L (22-29); Chloride 108 mmol/L (96-108); Estimated Glomerular Filt Rate > 60; Glucose Random 110 mg/dL (60-115); Potassium 3.8 mmol/L (3.3-5.1); Sodium 140 mmol/L (135-145); Total Protein 6.9 g/dL (6.5-8.0)
== END 2024-02-02 08:47 | disposition home or self-care (01) ==
LOC: HO.HMGCX 08:46
PROVIDERS: PCP Internal Medicine; Visit Provider Internal Medicine
DX: N20.0 Calculus of kidney (principal); R10.9 Unspecified abdominal pain
CPT/HCPCS: 36415; 76775; 80053

== ENCOUNTER 2024-03-21 09:54 | Outpatient (REF) | payer MEDICARE, MEDICAID, SELFPAY ==
[2024-03-21 13:33] LABS: Blood Urea Nitrogen 17 mg/dL (9-16); Estimated Glomerular Filt Rate > 60
== END 2024-03-21 09:55 | disposition home or self-care (01) ==
LOC: HO.HMGCLDS 09:54
PROVIDERS: PCP Internal Medicine; Visit Provider Internal Medicine
DX: E78.5 Hyperlipidemia, unspecified (principal)
CPT/HCPCS: 36415; 82565; 84520

== ENCOUNTER 2024-03-25 08:14 | Outpatient (REF) | payer MEDICARE, MEDICAID, SELFPAY ==
--- NOTE | ~2024-03-25 | CT_ITS ---
CLINICAL HISTORY: I71.40 - Abdominal aortic aneurysm, without rupture, unspecified CT angiography chest and abdomen with contrast. 3-D postprocessing. Comparison: None Findings: Great vessels, thoracoabdominal aorta, celiac, superior mesenteric, and bilateral renal arteries are patent without aneurysm, dissection, or occlusion. The visualized thyroid and mediastinum are unremarkable. The heart is normal size. No consolidation or effusion. Solid organs are within normal limits. There are no abnormal findings in the gallbladder fossa. No renal stones. No bowel obstruction, pneumoperitoneum, or pneumatosis. The bones are intact. IMPRESSION: 1. No systemic arterial aneurysm or dissection. 2. No acute pulmonary embolus. 3. Additional findings of chest and abdomen as noted. This document has been electronically signed by: Jimmie Lewis MD on 03/25/2024 17:33:51
--- NOTE | ~2024-03-25 | CT_ITS ---
CLINICAL HISTORY: I71.9 - Aortic aneurysm of unspecified site, without rupture CT angiography chest, abdomen and pelvis with contrast. 3-D postprocessing. Comparison: None Findings: Great vessels, thoracoabdominal aorta, mesenteric/renal arteries, and iliofemoral arteries are patent without aneurysm, dissection, or occlusion. The visualized thyroid and mediastinum are unremarkable. The heart size is normal. The lungs are clear. The appearance of the liver suggests fatty infiltration without focal lesion. Otherwise unremarkable solid organs. There are no abnormal findings in the gallbladder fossa. No urolithiasis. No bowel obstruction, pneumoperitoneum, or pneumatosis. Pelvic contents unremarkable. Normal appendix. No acute fractures. IMPRESSION: 1. No systemic arterial aneurysm or dissection. 2. No acute pulmonary embolus. 3. Hepatic steatosis. This document has been electronically signed by: Jimmie Lewis MD on 03/25/2024 17:32:16
[2024-03-25] MEDS: iohexoL 350 MG/ML 100 ML INFUS..BTL IV (09:43)
== END 2024-03-25 08:15 | disposition home or self-care (01) ==
LOC: HO.CT 08:14
PROVIDERS: PCP Internal Medicine; Visit Provider Internal Medicine
DX: I71.9 Aortic aneurysm of unspecified site, without rupture (principal); I71.40 Abdominal aortic aneurysm, without rupture, unspecified
CPT/HCPCS: 71275; 74174; Q9967

== ENCOUNTER → 2024-03-25 08:17 | Outpatient (BNV) | payer MEDICARE, MEDICAID, SELFPAY | PROVIDERS: PCP Internal Medicine; Visit Provider Specialist | DX: I71.40 Abdominal aortic aneurysm, without rupture, unspecified (principal); K76.0 Fatty (change of) liver, not elsewhere classified | CPT/HCPCS: 71275; 74174 ==

== ENCOUNTER 2024-05-10 10:58 | Outpatient (AMB) | payer MEDICARE, MEDICAID, SELFPAY ==
--- NOTE | 2024-05-10 11:07 | A.OFFVIS_ITS ---
Vital Signs 05/10/24 11:08 Height 5 ft 0.5 in Weight 168 lb BMI 32.3 Intake Visit Reasons: OV-Left Carpal tunnel syndrome, discuss surgery? Intake Note: Dilcia 74 yr old female presents today for her EMG review. States she is having numbness and tingling mainly on her left index, middle finger and thumb. She is also complaining of elbow pain in her right but denies numbness and tingling in her right hand. IMPRESSION: 1. This is an abnormal study. 2. 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 3. There is no electrodiagnostic evidence for median neuropathy, brachial plexopathy, or cervical radiculopathy Allergies codeine Allergy (Intermediate, Verified 05/10/24 11:17) Headache HPI HPI OV-Left Carpal tunnel syndrome, discuss surgery?: Details: Dilcia is a 74 year old right hand dominant woman who returns to discuss her left carpal tunnel syndrome. She complains of numbness primarily in the median nerve distribution of her left hand. Symptoms constant and worsening. She denies any numbness in her right hand, but she complains of pain in her right elbow. She has a Hx of an aortic aneurysm. She denies any blood thinners. [facility] Medical History (Updated 05/10/24 @ 11:14 by Hilario Sorensen) Tick bite Right carpal tunnel syndrome Food allergic skin reaction Thoracic spine pain Carpal tunnel syndrome Abnormal skin growth Vitamin D deficiency Multinodular thyroid Thyroid nodule Hyperlipidemia Surgical History Hx of biopsy Hx of mammogram Hx of shoulder surgery Hx of cholecystectomy Hx of appendectomy H/O colonoscopy Family History Father No problems noted. Mother No problems noted. 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 Normal sensation ulnar nerve distribution No thenar or intrinsic wasting Weak APB muscle belly firing and good finger cross Vascular: Cap refill brisk ROM: She can make a fist and extend all of her digits. No locking or catching. She has a barely perceptible mass, ~5mm in diameter, located ~1cm proximal to the distal palmar crease in line with a small finger. This could be a Dupuytrens nodule but is more proximal than normal. Unchanged Nerve Conduction Study: Right-side only IMPRESSION: 1. This is an abnormal study. 2. 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 3. There is no electrodiagnostic evidence for median neuropathy, brachial plexop athy, or cervical radiculopathy. Faith Emmanuel MD, PRANEETH 06/25/23 Left-side only IMPRESSION: 1. Left [id number] median neuropathy across carpal tunnel. 2. Mild left ulnar neuropathy across cubital tunnel. Mayur Alejo MD 05/01/2022 Assessment & Plan Assessment & Plan (1) Carpal tunnel syndrome, left upper limb: Code(s): G56.02 - Carpal tunnel syndrome, left upper limb Category: Medical (2) Cubital tunnel syndrome on left: Code(s): G56.22 - Lesion of ulnar nerve, left upper limb Category: Medical (3) Mass of left hand: Code(s): R22.32 - Localized swelling, mass and lump, left upper limb Category: Medical (4) Cubital tunnel syndrome on right: Code(s): G56.21 - Lesion of ulnar nerve, right upper limb Category: Medical Plan Assessment & Plan: 1. Left Carpal tunnel syndrome, mild-moderate With dense numbness I educated her about this condition I discussed operative and non-operative treatment options The patient would like to proceed with surgery The risks and benefits of operative treatment were discussed with the patient and the patient wishes to proceed with surgery. These risks include, but are no t limited to risk of damage to blood vessels, nerves, tendons, infection, recurrence, incomplete relief of preoperative symptoms, persistent pain, possible need for further surgery and the risks associated with regional blocks and anesthesia. The plan is to take the patient to the operating room sometime in the next few weeks for the following procedures: 1. Left carpal tunnel release, under local All of the preoperative paperwork including the consent was reviewed today. All the patient's questions were answered. The patient understands that they will be contacted by our ticket scheduler soon to schedule this procedure She denies Diabetes, blood thinners, asthma, lung, kidney issues She has a Hx of an aortic aneurysm 2. Left Cubital tunnel syndrome, mild Asymptomatic 3. Right cubital tunnel syndrome No complaints today 4. Left hand mass ~1cm proximal to the distal phillips crease in line with a small finger Measuring ~5mm in diameter This could be a Dupuytrens nodule but is more proximal than normal. This is mildly tender, non-mobile, and barely perceptible on exam No intervention warranted at this time. She understands to follow up if this increases in size or pain Scribed for Roseline Santamaria MD by Hilario Sorensen, vice president medical affairs, on 05/10/24 at 11:20 AM, EST. Coding Level of Care Code Est Pt Level 4 (03450) Diagnoses Carpal tunnel syndrome, left upper limb G56.02 Cubital tunnel syndrome on left G56.22 Mass of left hand R22.32 Cubital tunnel syndrome on right G56.21
[2024-05-10 11:08] VITALS: BMI 32.3
--- OUTSIDE RECORDS SUMMARY | 2024-05-10 12:07 | XMS_ITS | Encounter Summary ---
Author Organization [facility] Address [address] [place] [address] Care Team Providers Care Sap Business Analyst Name Role Phone Paola Finney DO Primary Care Pro vider Unavailable Community, Pcp Primary Care Provider Unavailabl e Reason for Visit * Reason Onset Date Comments REFERRAL 08/25/2018 Encounter Details Date Type Department Care Team Description 08/25/2018 Telephone Physiatry - [address] [address] Kory Laguerre PA-C REFERRAL Social History Tobacco Use Types Packs/Day Years Used Date Smoking Tobacco: Former Smokeless Tobacco: Never Comments:quit 13 yrs ago Alcohol Use Standard Drinks/Week Comments No 0 (1 standard drink = 0.6 oz pur e alcohol) only special occasions Sex Assigned at Date Recorded Not on file documented as of this encounter Miscellaneous Notes * Telephone Encounter - Caitie Esparza - 08/25/2018 10:05 AM EDT Patient is referred to: physiatry. Reason for referral: back pain FYI Patient states she does not want to schedule an appointment in the physiatry department at this time. documented in this encounter Plan of Treatment Not on file documented as of this encounter Visit Diagnoses Not on filedocumented in this encounter Care Teams Sap Business Analyst Relationship Specialty Start Date End Date Paola Finney DO PCP - General Internal Medicine 06/29/15 10/24/21 Community, Pcp PCP - General Internal Medicine 10/25/21 documented as of this encounter
--- OUTSIDE RECORDS SUMMARY | 2024-05-10 12:07 | XMS_ITS | Encounter Summary ---
Author Organization [facility] Address [facility] [place] [address] Care Team Providers Care Wharf Builder Name Role Phone Paola Finney DO Primary Care Pro vider Unavailable Community, Pcp Primary Care Provider Unavailabl e Encounter Details Date Type Department Care Team Description 07/29/2017 Transfer Records Medical Records [address] [place] [address] Abstract, Provider Social History Tobacco Use Types Packs/Day Years Used Date Smoking Tobacco: Former Smokeless Tobacco: Never Comments:quit 13 yrs ago Alcohol Use Standard Drinks/Week Comments No 0 (1 standard drink = 0.6 oz pur e alcohol) only special occasions Sex Assigned at Date Recorded Not on file documented as of this encounter Plan of Treatment Not on file documented as of this encounter Visit Diagnoses Not on filedocumented in this encounter Care Teams Wharf Builder Relationship Specialty Start Date End Date Paola Finney DO PCP - General Internal Medicine 06/29/15 10/24/21 [facility], Pcp PCP - General Internal Medicine 10/25/21 documented as of this encounter
--- OUTSIDE RECORDS SUMMARY | 2024-05-10 12:07 | XMS_ITS | Encounter Summary ---
[facility] [address] [place] [address] Care Team Providers Care Metal Sander And Finisher Name Role Phone Paola Finney DO Primary Care Pro vider Unavailable Community, Pcp Primary Care Provider Unavailabl e Encounter Details Date Type Department Care Team Description 10/05/2018 [facility] Medical Records [address] [place] [address] Abstract, Provider Social History Tobacco Use Types [...] on filedocumented in this encounter Care Teams Metal Sander And Finisher Relationship Specialty Start Date End Date Paola Finney DO PCP - General Internal Medicine 06/29/15 10/24/21 [facility], Pcp PCP - General Internal Medicine 10/25/21 documented as of this encounter
--- OUTSIDE RECORDS SUMMARY | 2024-05-10 12:07 | XMS_ITS | Encounter Summary ---
[facility] Address [facility] [place] [address] Care Team Providers Care Cement Mason Apprentice Name Role Phone Paola Finney DO Primary Care Pro vider Unavailable Community, Pcp Primary Care Provider Unavailabl e Encounter Details Date Type Department Care Team Description 05/14/2018 [facility] Medical Records [address] [place] [address] Kadeem Moreno MD Social History Tobacco Use Types Packs/Day Years [...] on filedocumented in this encounter Care Teams Cement Mason Apprentice Relationship Specialty Start Date End Date Paola Finney DO PCP - General Internal Medicine 06/29/15 10/24/21 [facility], Pcp PCP - General Internal Medicine 10/25/21 documented as of this encounter
--- OUTSIDE RECORDS SUMMARY | 2024-05-10 12:07 | XMS_ITS | Encounter Summary ---
[facility] Address [facility] [place] [address] Care Team Providers Care Cardiac Tech Name Role Phone Paola Finney DO Primary Care Pro vider Unavailable Community, Pcp Primary Care Provider Unavailabl e Encounter Details Date Type Department Care Team Description 07/28/2017 Business Doc Medical Records [address] [place] [address] Abstract, Provider Social History Tobacco Use Types [...] on filedocumented in this encounter Care Teams Cardiac Tech Relationship Specialty Start Date End Date Paola Finney DO PCP - General Internal Medicine 06/29/15 10/24/21 [facility], Pcp PCP - General Internal Medicine 10/25/21 documented as of this encounter
--- OUTSIDE RECORDS SUMMARY | 2024-05-10 12:07 | XMS_ITS | Clinical Summary ---
Author Organization [facility] Address [address] [place] [address] Care Team Providers Care Curriculum Director Name Role Phone Teressa Stoner MD Primary Care Provider [phone] Surgical History Surgery Date Site/Laterality Comments APPENDECTOMY PROCEDURE: HISTORICAL APPENDECTOMY; COMMENT: 1972 BLADDER SURGERY 03/2005 PROCEDURE: HISTORICAL BLADDER SURGERY; COMMENT: Cystocele repair, Bladder sling CHOLECYSTECTOMY 2000 PROCEDURE: HISTORICAL CHOLECYSTECTOMY COLONOSCOPY 02/09/2017 PROCEDURE: HISTORICAL COLONOSCOPY; COMMENT: adenoma; repeat in 5 yrs UPPER GASTROINTESTINAL ENDOSCOPY 05/14/2018 PROCEDURE: NC UPPER GI ENDOSCOPY PERFORMED; COMMENT: normal. FLEXIBLE SIGMOIDOSCOPY 06/2000 PROCEDURE: HISTORICAL FLEXIBLE SIGMOIDOSCOPY Medical History Medical History Date Comments Calculus of kidney 03/15/2005 DX:Calculus o f kidney Depressive disorder, not els ewhere classified 03/15/2005 DX:Depressive disorder, not elsewhere classified Osteopenia 11/08/2015 DX:Osteopenia; C OMMENT: BMD 01/13/13, 09/26/10, 08/31/08 Allergic rhinitis 11/08/2015 DX:Allergic rh initis Umbilical hernia 05/10/2018 DX:Umbilical he rnia Tubular adenoma 05/10/2018 DX:Tubular adeno ma Osteoarthritis 11/08/2015 DX:Osteoarthriti s; COMMENT: Cervical, & Thoracic Spine, Hips Fatty liver 05/10/2018 DX:Fatty liver GERD (gastroesophageal reflux disease) 11/08/2015 DX:GERD (gastroesophageal reflux disease); COMMENT: History h pylori Dyslipidemia 09/29/2016 DX:Dyslipidemia Spinal stenosis 11/08/2015 DX:Spinal stenos is Family History Medical History Relation Name Comments Diabetes Brother age 52-CT Heart failure Father Kidney stones Heart attack Mother in her 70's. di ed from pneumonia Heart attack Paternal Grandfather Breast cancer Sister dx 63 Palpitations Relation Name Status Comments Brother Father Mother Paternal Grandfather Sister dx 63 Alive Social History Tobacco Use Types Packs/Day Years Used Date Smoking Tobacco: Former Smokeless Tobacco: Never Alcohol Use Standard Drinks/Week Comments No 0 (1 standard drink = 0.6 oz pur e alcohol) Comments Unknown Sex and Gender Information Value Date Recorded Sex Assigned at Not on file Legal Sex Female 2:18 AM EST Gender Identity Not on file Sexual Orientation Not on file Obstetrics History Plan of Treatment Health Maintenance Due Date Last Done Comments Hepatitis A Vaccines (1 of 2 - Risk 2-dose series) 1971 Pneumococcal Vaccine: 50+ Years (1 of 1 - PCV) 2002 Zoster Vaccines (1 of 2) 2002 Hepatitis B Vaccines (1 of 3 - Risk 3-dose series) 2012 RSV Immunization Patients 60 + Years Old (1 - Risk 60-74 years 1-dose series) 2012 Breast Cancer Screening 07/29/2020 07/30/19 19, 07/24/2017 Colorectal Cancer Screening: Colonoscopy 03/17/2023 02/09/2017 Depression Screening 03/17/2023 Falls Risk Assessment 03/17/2023 Hepatitis C Screening 03/17/2023 Osteoporosis Screening (Bone Density Screening) 03/17/2023 Social Influencers of Health Screening 03/17/2023 COVID-19 Vaccine ( - 2023-2 5 season) 2023 Influenza Vaccine (#1) 2023 DTaP,Tdap,and Td Vaccines (2 - Td or Tdap) 07/24/2026 07/24/2016 HIB Vaccines Aged Out No longer eligi ble based on patient's age to complete this topic HPV Vaccines Aged Out No longer eligi ble based on patient's age to complete this topic IPV Vaccines Aged Out No longer eligi ble based on patient's age to complete this topic MMR Vaccines Aged Out No longer eligi ble based on patient's age to complete this topic Meningococcal ACWY Vaccine Aged Out N o longer eligible based on patient's age to complete this topic Meningococcal B Vacine Aged Out No lo nger eligible based on patient's age to complete this topic RSV Immunization Patients Under 20 months Aged Out No longer eligible b ased on patient's age to complete this topic Varicella Vaccines Aged Out No longer eligible based on patient's age to complete this topic Procedures Procedure Name Priority Date/Time Associated Diagnosis Comments SCR MAMMO BI INCL CAD Routine 07/29/2018 11:09 AM EDT Encounter for screening mammogram for malignant neoplasm of breast from Last 3 Months or Most Recently Relevant to Health Maintenance Results * SCR MAMMO BI INCL CAD (07/29/2018 11:09 AM EDT) Anatomical Region Laterality Modality Radiographic Carla ging 07/24/2017 11:3 0 AM EDT Narrative 07/29/2018 11:51 AM EDT This is a summary report. The complete report is available in the patient's medical record. If you cannot access the medical record, please contact the sending organization for a detailed fax or copy. Full field digital screening mammography, reviewed with CAD and compared to previous. ??The breasts are composed of fatty and fibroglandular tissue. ??No suspicious mass, architectural distortion or suspicious calcifications are identified. IMPRESSION: : No mammographic evidence of malignancy. BIRADS 1-Negative; N. 5 year breast cancer risk assessment 2.9 % Lifetime breast cancer risk assessment 10.3 % Breast cancer risk category Low (<15%) Procedure Note Aakash De La Vega MD - 03/11/2022 This is a summary report. The complete report is available in thepatient's medical record. If you cannot access the medical record, pleasecontact the sending organization for a detailed fax or copy. Full field digital screening mammography, reviewed with CAD and comparedto previous. The breasts are composed of fatty and fibroglandular tissue.No suspicious mass, architectural distortion or suspicious calcificationsare identified. IMPRESSION: : No mammographic evidence of malignancy. BIRADS 1-Negative; N. 5 year breast cancer risk assessment 2.9 % Lifetime breast cancer risk assessment 10.3 % Breast cancer risk category Low (<15%) Paola Flynn DO IMG XR PROCEDURES Final Result from Last 3 Months or Most Recently Relevant to Health Maintenance Care Teams Curriculum Director Relationship Specialty Start Date End Date Teressa Stoner MD [address] [place] [address] PCP - General Internal Medicine 03/29/24
--- OUTSIDE RECORDS SUMMARY | 2024-05-10 12:07 | XMS_ITS | Encounter Summary ---
[facility] Address [address] [place] [address] Care Team Providers Care Host/Hostess Name Role Phone Paola Finney DO Primary Care Pro vider Unavailable Community, Pcp Primary Care Provider Unavailabl e Encounter Details Date Type Department Care Team Description 10/04/2015 Release of Information Medical Records [address] [place] [address] Abstract, Provider Social History Tobacco Use Types Packs/Day Years Used Date Smoking Tobacco: Former Comments:quit 13 yrs ago Alcohol Use Standard Drinks/Week Comments Not Asked 0 (1 standard drink = 0.6 oz pur e alcohol) Sex Assigned at Date Recorded Not on file documented as of this encounter Plan of Treatment Not on file documented as of this encounter Visit Diagnoses Not on filedocumented in this encounter Care Teams Host/Hostess Relationship Specialty Start Date End Date Paola Finney DO PCP - General Internal Medicine 06/29/15 10/24/21 [facility], Pcp PCP - General Internal Medicine 10/25/21 documented as of this encounter
--- OUTSIDE RECORDS SUMMARY | 2024-05-10 12:07 | XMS_ITS | Encounter Summary ---
Author Organization [facility] Address [address] [place] [address] Care Team Providers Care Mortgage Closer Name Role Phone Paola Finney DO Primary Care Pro vider Unavailable Community, Pcp Primary Care Provider Unavailabl e Reason for Visit * Reason Onset Date Comments Clothing Designer Feedback 09/20/2018 neurosurgery Encounter Details Date Type Department Care Team Description 09/20/2018 Telephone Adult Medicine [address] [address] Paola Finney DO Clothing Designer Feedback (neurosurgery) Social History Tobacco Use Types Packs/Day Years Used Date Smoking Tobacco: Former Smokeless Tobacco: Never Comments:quit 13 yrs ago Alcohol Use Standard Drinks/Week Comments No 0 (1 standard drink = 0.6 oz pur e alcohol) only special occasions Sex Assigned at Date Recorded Not on file documented as of this encounter Miscellaneous Notes * Telephone Encounter - Paola Marlow DO - 09/30/2018 7:43 PM EDT All set * Telephone Encounter - Lois Regan - 09/20/2018 11:[address] Lambert, You put in a referral for this patient for neurosurgery on 09/17/18. Once the last office notes are signed we can finish working the referral order. Thank you! Lois Biswas Referrals Department documented in this encounter Plan of Treatment Not on file documented as of this encounter Visit Diagnoses Not on filedocumented in this encounter Care Teams Mortgage Closer Relationship Specialty Start Date End Date Paola Finney DO PCP - General Internal Medicine 06/29/15 10/24/21 [facility], Pcp PCP - General Internal Medicine 10/25/21 documented as of this encounter
--- OUTSIDE RECORDS SUMMARY | 2024-05-10 12:07 | XMS_ITS | Encounter Summary ---
Author Organization [facility] Address [address] [place] [address] Care Team Providers Care Bilingual Research Interviewer Name Role Phone Paola Finney DO Primary Care Pro vider Unavailable Community, Pcp Primary Care Provider Unavailabl e Reason for Visit * Reason Onset Date Comments REFERRAL 11/26/2018 General Surgery Encounter Details Date Type Department Care Team Description 11/26/2018 Telephone Medicine/Pediatrics - [address] [address] Paola Finney DO REFERRAL (General Surgery) Social History Tobacco Use Types Packs/Day Years Used Date Smoking Tobacco: Former Smokeless Tobacco: Never Comments:quit 13 yrs ago Alcohol Use Standard Drinks/Week Comments No 0 (1 standard drink = 0.6 oz pur e alcohol) only special occasions Sex Assigned at Date Recorded Not on file documented as of this encounter Miscellaneous Notes * Telephone Encounter - Jeanette Gregory - 11/26/2018 9:11 AM EDT FYI to ordering provider. Re:Dr zimmer . Pt will be back in mid october Reason for referral: abd pain, feels has a hernia Patient DECLINED to book appt. KMS. documented in this encounter Plan of Treatment Not on file documented as of this encounter Visit Diagnoses Not on filedocumented in this encounter Care Teams Bilingual Research Interviewer Relationship Specialty Start Date End Date Paola Finney DO PCP - General Internal Medicine 06/29/15 10/24/21 [facility], Pcp PCP - General Internal Medicine 10/25/21 documented as of this encounter
--- OUTSIDE RECORDS SUMMARY | 2024-05-10 12:07 | XMS_ITS | Encounter Summary ---
[facility] Address [address] [place] [address] Care Team Providers Care Kitchen Supervisor Name Role Phone Paola Finney DO Primary Care Pro vider Unavailable Community, Pcp Primary Care Provider Unavailabl e Encounter Details Date Type Department Care Team Description 08/18/2018 Hand Stonecutter Report Medical Records [address] [place] [address] Rehab., Alexandro Social History Tobacco Use Types Packs/Day Years [...] on filedocumented in this encounter Care Teams Kitchen Supervisor Relationship Specialty Start Date End Date Paola Finney DO PCP - General Internal Medicine 06/29/15 10/24/21 [facility], Pcp PCP - General Internal Medicine 10/25/21 documented as of this encounter
--- OUTSIDE RECORDS SUMMARY | 2024-05-10 12:07 | XMS_ITS | Encounter Summary ---
[facility] Address [facility] [place] [address] Care Team Providers Care Finisher Operator Name Role Phone Paola Finney DO Primary Care Pro vider Unavailable Community, Pcp Primary Care Provider Unavailabl e Encounter Details Date Type Department Care Team Description 07/30/2018 Business Doc Medical Records [address] [place] [address] Abstract, Provider Social History Tobacco Use Types [...] on filedocumented in this encounter Care Teams Finisher Operator Relationship Specialty Start Date End Date Paola Finney DO PCP - General Internal Medicine 06/29/15 10/24/21 [facility], Pcp PCP - General Internal Medicine 10/25/21 documented as of this encounter
== END 2024-05-10 11:35 | disposition home or self-care (01) ==
PROVIDERS: PCP Internal Medicine; Visit Provider Orthopaedic Surgery
DX: G56.02 Carpal tunnel syndrome, left upper limb (principal); G56.23 Lesion of ulnar nerve, bilateral upper limbs; R22.32 Localized swelling, mass and lump, left upper limb
CPT/HCPCS: 99214

== ENCOUNTER → 2024-05-10 10:58 | Outpatient (BNVA) | payer MEDICARE, MEDICAID, SELFPAY | PROVIDERS: PCP Internal Medicine; Visit Provider Orthopaedic Surgery | DX: G56.02 Carpal tunnel syndrome, left upper limb (principal); G56.22 Lesion of ulnar nerve, left upper limb; G56.21 Lesion of ulnar nerve, right upper limb; R22.32 Localized swelling, mass and lump, left upper limb | CPT/HCPCS: 99212 ==

== ENCOUNTER 2024-05-31 06:46 | Day surgery (SDC) | payer MEDICARE, MEDICAID, SELFPAY ==
--- OUTSIDE RECORDS SUMMARY | 2024-05-18 13:52 | XMS_ITS | Encounter Summary ---
Author Organization [facility] Address [address] [place] [address] Care Team Providers Care Heating And Ventilation Engineer Name Role Phone Paola Finney DO Primary Care Pro vider Unavailable Community, Pcp Primary Care Provider Unavailabl e Reason for Visit * Reason Onset Date Comments TEST RESULTS 12/06/2018 result notes Encounter Details Date Type Department Care Team Description 12/06/2018 Telephone Adult Medicine [address] [address] Aye Wiseman PA-C TEST RESULTS (result notes) Social History Tobacco Use Types Packs/Day Years Used Date Smoking Tobacco: Former Smokeless Tobacco: Never Comments:quit 13 yrs ago Alcohol Use Standard Drinks/Week Comments No 0 (1 standard drink = 0.6 oz pur e alcohol) only special occasions Sex Assigned at Date Recorded Not on file documented as of this encounter Miscellaneous Notes * Telephone Encounter - Jarocho Juan M.A. - 12/06/2018 4:23 PM EDT Patient is notified of results. Please let patient know that her potassium has resolved and no further follow-up is needed at this time. documented in this encounter Plan of Treatment Not on file documented as of this encounter Visit Diagnoses Not on filedocumented in this encounter Care Teams Heating And Ventilation Engineer Relationship Specialty Start Date End Date Paola Finney DO PCP - General Internal Medicine 06/29/15 10/24/21 Community, Pcp PCP - General Internal Medicine 10/25/21 documented as of this encounter
--- OUTSIDE RECORDS SUMMARY | 2024-05-18 13:52 | XMS_ITS | Encounter Summary ---
Author Organization [facility] Address [address] [place] [address] Care Team Providers Care Cement Breaker Name Role Phone Paola Finney DO Primary Care Pro vider Unavailable Community, Pcp Primary Care Provider Unavailabl e Reason for Visit * Reason Onset Date Comments REFERRAL 08/25/2018 Encounter Details Date Type Department Care Team Description 08/25/2018 Telephone [place] [address] Kory Laguerre PA-C REFERRAL Social History Tobacco [...] filedocumented in this encounter Care Teams Cement Breaker Relationship Specialty Start Date End Date Paola Finney DO PCP - General Internal Medicine 06/29/15 10/24/21 Community, Pcp PCP - General Internal Medicine 10/25/21 documented as of this encounter
--- OUTSIDE RECORDS SUMMARY | 2024-05-18 13:52 | XMS_ITS | Clinical Summary ---
Author Organization [facility] Address [address] [place] [address] Care Team Providers Care Deicer Inspector Pneumatic Name Role Phone Teressa Stoner MD Primary Care Provider [phone] Surgical History Surgery Date Site/Laterality Comments APPENDECTOMY PROCEDURE: HISTORICAL APPENDECTOMY; COMMENT: 1972 BLADDER SURGERY 03/2005 PROCEDURE: HISTORICAL BLADDER SURGERY; COMMENT: Cystocele repair, Bladder sling CHOLECYSTECTOMY 2000 PROCEDURE: HISTORICAL CHOLECYSTECTOMY COLONOSCOPY 02/09/2017 PROCEDURE: HISTORICAL COLONOSCOPY; COMMENT: adenoma; repeat in 5 yrs UPPER GASTROINTESTINAL ENDOSCOPY 05/14/2018 PROCEDURE: [place] UPPER GI ENDOSCOPY PERFORMED; COMMENT: normal. FLEXIBLE [...] History Relation Name Comments Diabetes Brother age 52-[place] Heart failure Father Kidney stones Heart attack [...] Recently Relevant to Health Maintenance Care Teams Deicer Inspector Pneumatic Relationship Specialty Start Date End Date Teressa Stoner MD [address] [place] [address] PCP - General Internal Medicine 03/29/24
--- OUTSIDE RECORDS SUMMARY | 2024-05-18 13:52 | XMS_ITS | Encounter Summary ---
Author Organization [facility] Address [facility] [place] [address] Care Team Providers Care Paint Mixer Hand Name Role Phone Paola Finney DO Primary Care Pro vider Unavailable Community, Pcp Primary Care Provider Unavailabl e Encounter Details Date Type Department Care Team Description 07/28/2017 Business Doc Medical Records [address] [place] [id number] Abstract, Provider Social History Tobacco Use Types [...] on filedocumented in this encounter Care Teams Paint Mixer Hand Relationship Specialty Start Date End Date Paola Finney DO PCP - General Internal Medicine 06/29/15 10/24/21 [facility], Pcp PCP - General Internal Medicine 10/25/21 documented as of this encounter
--- OUTSIDE RECORDS SUMMARY | 2024-05-18 13:52 | XMS_ITS | Encounter Summary ---
Author Organization [facility] Address [address] [place] [address] Care Team Providers Care Water And Sewer Systems Superintendent Name Role Phone Paola Finnye DO Primary Care Pro vider Unavailable Community, Pcp Primary Care Provider Unavailabl e Reason for Visit * Reason Onset Date Comments Faxed Order 06/11/2018 Encounter Details Date Type Department Care Team Description 06/11/2018 Telephone Adult Medicine [address] [address] Paola Finney DO Faxed Order Social History Tobacco Use Types Packs/Day Years Used Date Smoking Tobacco: Former Smokeless Tobacco: Never Comments:quit 13 yrs ago Alcohol Use Standard Drinks/Week Comments No 0 (1 standard drink = 0.6 oz pur e alcohol) only special occasions Sex Assigned at Date Recorded Not on file documented as of this encounter Miscellaneous Notes * Telephone Encounter - Flora Coleman - 06/11/2018 1:43 PM EDT Treatment plan and extension of PT services for Dr. Paola Marlow's signature documented in this encounter Plan of Treatment Not on file documented as of this encounter Visit Diagnoses Not on filedocumented in this encounter Care Teams Water And Sewer Systems Superintendent Relationship Specialty Start Date End Date Paola Finney DO PCP - General Internal Medicine 06/29/15 10/24/21 Community, Pcp PCP - General Internal Medicine 10/25/21 documented as of this encounter
--- OUTSIDE RECORDS SUMMARY | 2024-05-18 13:52 | XMS_ITS | Encounter Summary ---
Author Organization [employer] [facility] Address [address] [place] [address] Care Team Providers Care Airport Engineer Name Role Phone Paola Finney DO Primary Care Pro vider Unavailable Community, Pcp Primary Care Provider Unavailabl e Encounter Details Date Type Department Care Team Description 09/22/2018 [facility] Controlled Substance Contract Medical Records [address] [place] [address] Abstract, Provider Social History Tobacco Use Types [...] on filedocumented in this encounter Care Teams Airport Engineer Relationship Specialty Start Date End Date Paola Finney DO PCP - General Internal Medicine 06/29/15 10/24/21 [facility], Pcp PCP - General Internal Medicine 10/25/21 documented as of this encounter
--- OUTSIDE RECORDS SUMMARY | 2024-05-18 13:52 | XMS_ITS | Encounter Summary ---
Author Organization [employer] [facility] Address [address] [place] [address] Care Team Providers Care Tug Boat Captain Name Role Phone Paola Finney DO Primary Care Pro vider Unavailable Community, Pcp Primary Care Provider Unavailabl e Encounter Details Date Type Department Care Team Description 04/27/2017 Orders Only Medical Records [address] [place] [address] Paola Finney DO Social History Tobacco Use Types Packs/Day Years Used Date Smoking Tobacco: Former Smokeless Tobacco: Never Comments:quit 13 yrs ago Alcohol Use Standard Drinks/Week Comments No 0 (1 standard drink = 0.6 oz pur e alcohol) only special occasions Sex Assigned at Date Recorded Not on file documented as of this encounter Plan of Treatment Not on file documented as of this encounter Procedures Procedure Name Priority Date/Time Associated Diagnosis Comments OUTSIDE HOLTER MONITOR Routine 04/22/2017 documented in this encounter Results * OUTSIDE HOLTER MONITOR (04/22/2017) Paola Marlow DO CARDIOLOG Y documented in this encounter Visit Diagnoses Not on filedocumented in this encounter Care Teams Tug Boat Captain Relationship Specialty Start Date End Date Paola Finney DO PCP - General Internal Medicine 06/29/15 10/24/21 Community, Pcp PCP - General Internal Medicine 10/25/21 documented as of this encounter
[2024-05-31 07:15] VITALS: BP 123/75; PULSE 58; RESP 15; TEMP 36.3; O2SAT 95; BMI 33.0
--- NOTE | 2024-05-31 07:34 | MHC.SHP ---
Pre-Procedural Eval Section A - 24 Hr Update-Section A only Date of Service: 05/31/24 The patient is an INPATIENT: No Changes since office visit: No Cold of Flu in the past 2 weeks, No New Medical Problems, No Changes in Medication and No Patient answered all questions The patient has been examined within 24 hours of the surgical procedure. The History & Physical has been completed within 30 days and I have reviewed it.: Yes Section B - Complete if H&P > 30 days Chief Complaint: Carpal tunnel syndrome, left upper limb Allergies: Allergies Allergy/AdvReac Type Severity Reaction Status Date / Time codeine Allergy Intermediate Headache Verified 05/31/24 07:18 Plan Diagnosis/Plan: Unchanged I have reviewed the history and physical and performed a pertinent physical examination on my patient. No changes have occurred unless specified. Time Spent With Patient Time: Total time managing care of this patient today ____ minutes.
--- NOTE | 2024-05-31 07:35 | P.OP_ITS ---
Operative Note Operative Note Date of Service: 05/31/24 Narrative: Preop diagnosis: 1. Left Carpal tunnel syndrome Postop diagnosis: same Procedure: 1. Left Carpal tunnel release Surgeon: Roseline Santamaria MD Transfer Table Operator Helper: Irving QIU Anesthesia: local block using 1% lidocaine with epinephrine Findings: Thickened transverse carpal ligament. EBL: Less than 5 mL Specimens: None Complications: None Disposition: Brought to recovery room in stable condition Plan: Follow-up for 10-14 days for wound check and suture removal Indications: The patient is 74 years old, with left carpal tunnel syndrome that has been unresponsive to nonoperative management. The risks and benefits of operative treatment including but not limited to risk of damage to blood vessels, nerves, tendons, infection, persistent pain, persistent symptoms, or possible need for additional surgery were discussed with the patient and the patient wishes to proceed with surgery. Procedure: Once consent was obtained a local block was performed using a combination of 1% lidocaine with epinephrine. The patient was then brought back to the operating suite and placed on the operative table in supine position. The left upper extremity was prepped and draped in a standard surgical fashion. Once assured that we had a good block, a 2.0 cm longitudinal incision was made centered over the carpal tunnel. The incision was made through the skin to the subcutaneous tissues using a #15 blade. Dissection was made down to the level of the transverse carpal ligament with care being taken to protect the palmar cutaneous nerve. Once the transverse carpal ligament was clearly visualized, a longitudinal incision was made in the transverse carpal ligament 1st using a #15 blade, then using tenotomy scissors under direct visualization. Care was taken to look for and protect the motor branch of the median nerve when seen in this area. Once satisfied with our carpal tunnel release the wound was copiously irrigated with normal saline and hemostasis was obtained with a brief period of local pressure. The skin edges were reapproximated with some 5.0 nylon suture material and a sterile dressing was applied. The patient appears to have tolerated the procedure well and with no complications. All digits were well vascularized at the conclusion of the case.
[2024-05-31 08:46] VITALS: BP 111/66; PULSE 64; RESP 18; TEMP 36.2; O2SAT 96
== END 2024-05-31 08:51 | disposition home or self-care (01) ==
PROVIDERS: PCP Internal Medicine; Visit Provider Orthopaedic Surgery
PROC: (CPT 64721; principal; 2024-05-31 08:30)
DX: G56.02 Carpal tunnel syndrome, left upper limb (principal); R20.0 Anesthesia of skin; R20.2 Paresthesia of skin; R22.32 Localized swelling, mass and lump, left upper limb; E55.9 Vitamin D deficiency, unspecified; E78.5 Hyperlipidemia, unspecified; E04.2 Nontoxic multinodular goiter; Z88.5 Allergy status to narcotic agent; Z98.890 Other specified postprocedural states
CPT/HCPCS: 64721; J0171; J2003

== ENCOUNTER → 2024-05-31 06:46 | Outpatient (BNV) | payer MEDICARE, MEDICAID, SELFPAY | PROVIDERS: PCP Internal Medicine; Visit Provider Orthopaedic Surgery | DX: G56.01 Carpal tunnel syndrome, right upper limb (principal) | CPT/HCPCS: 64721 ==

== ENCOUNTER 2024-06-14 09:00 | Outpatient (AMB) | payer MEDICARE, MEDICAID, SELFPAY ==
--- NOTE | 2024-06-14 09:13 | MHC.OFFVIS ---
Vital Signs 06/14/24 09:19 Height 5 ft 0.5 in Weight 171 lb BMI 32.8 Intake Visit Reasons: PO LT CTR 05/31/24 AR Intake Note: Dilcia is a 74 year old right hand dominant female who presents today post operatively s/p left carpal tunnel release DOS: 05/31/24 w/ Dr Roseline Santamaria. Denies numbness, tingling, finger locking. Patient states she is not taking anything for pain at this time. Allergies codeine Allergy (Intermediate, Verified 06/14/24 09:20) Headache HPI HPI PO LT CTR 05/31/24 AR: Details: Dilcia is a 74 year old right hand dominant female who presents today post operatively s/p left carpal tunnel release DOS: 05/31/24 w/ Dr Roseline Santamaria. Denies numbness, tingling, finger locking. Patient states she is not taking anything for pain at this time. [facility] Medical History (Updated 05/10/24 @ 11:14 by Hilario Sorensen) Tick bite Right carpal tunnel syndrome Food allergic skin reaction Thoracic spine pain Carpal tunnel syndrome Abnormal skin growth Vitamin D deficiency Multinodular thyroid Thyroid nodule Hyperlipidemia Surgical History Hx of biopsy Hx of mammogram Hx of shoulder surgery Hx of cholecystectomy Hx of appendectomy H/O colonoscopy Family History Father No problems noted. Mother No problems noted. 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 Neuro: Slightly diminished sensation of the tips of the digits of the median nerve distribution of the left hand in the office today Vascular: Cap refill brisk Pain: No tenderness to palpation about the incision site Range of motion painless ROM: Patient is able to flex and extend all digits of the left hand fully and without difficulty Skin: Well approximated and well healing incision site noted on the volar left wrist No lacerations or abrasions. General: No ecchymosis, erythema, or evidence of infection. Psych: Appears grossly normal Affect normal Attitude cooperative Assessment & Plan Assessment & Plan (1) Carpal tunnel syndrome, left upper limb: Code(s): G56.02 - Carpal tunnel syndrome, left upper limb Category: Medical Plan 1. Status post left carpal tunnel release DOS 05/31/2024 Patient appears to be recovering well postoperatively Patient is educated about the typical recovery course At this time, patient was informed she will require no acute follow-up with us, as she appears to be recovering very well Patient was amenable to this plan Patient will follow-up as needed with any acute concerns Coding Level of Care Code Global ([id number]) Diagnoses Carpal tunnel syndrome, left upper limb G56.02
[2024-06-14 09:19] VITALS: BMI 32.8
--- OUTSIDE RECORDS SUMMARY | 2024-06-14 09:55 | XMS_ITS | Clinical Summary ---
Author Organization [facility] Address [address] [place] [address] Care Team Providers Care Low Voltage Electrician Name Role Phone Teressa Stoner MD Primary Care Provider [phone] Surgical History Surgery Date Site/Laterality Comments APPENDECTOMY PROCEDURE: HISTORICAL APPENDECTOMY; COMMENT: 1972 BLADDER SURGERY 03/2005 PROCEDURE: HISTORICAL BLADDER SURGERY; COMMENT: Cystocele repair, Bladder sling CHOLECYSTECTOMY 2000 PROCEDURE: HISTORICAL CHOLECYSTECTOMY COLONOSCOPY 02/09/2017 PROCEDURE: HISTORICAL COLONOSCOPY; COMMENT: adenoma; repeat in 5 yrs UPPER GASTROINTESTINAL ENDOSCOPY 05/14/2018 PROCEDURE: [place] UPPER GI ENDOSCOPY PERFORMED; COMMENT: normal. FLEXIBLE [...] History Relation Name Comments Diabetes Brother age 52-[place] Heart failure Father Kidney stones Heart attack [...] Recently Relevant to Health Maintenance Care Teams Low Voltage Electrician Relationship Specialty Start Date End Date Teressa Stoner MD [address] [place] [address] PCP - General Internal Medicine 03/29/24
== END 2024-06-14 09:37 | disposition home or self-care (01) ==
LOC: HO.HOS 09:01
PROVIDERS: PCP Internal Medicine
DX: G56.02 Carpal tunnel syndrome, left upper limb (principal)
CPT/HCPCS: 99024

== ENCOUNTER → 2024-06-14 09:00 | Outpatient (BNVA) | payer MEDICARE, MEDICAID, SELFPAY | PROVIDERS: PCP Internal Medicine | DX: Z09 Encounter for follow-up examination after completed treatment for conditions other than malignant neoplasm (principal); Z98.890 Other specified postprocedural states; Z86.69 Personal history of other diseases of the nervous system and sense organs | CPT/HCPCS: 99212 ==

== ENCOUNTER 2024-06-15 13:22 | Outpatient (REF) | payer MEDICARE, MEDICAID, SELFPAY | END 2024-06-15 13:23 | disposition home or self-care (01) | LOC: HO.LNP 13:22 | PROVIDERS: PCP Internal Medicine; Visit Provider Internal Medicine | DX: K57.92 Diverticulitis of intestine, part unspecified, without perforation or abscess without bleeding (principal); M54.12 Radiculopathy, cervical region; R10.9 Unspecified abdominal pain; R35.0 Frequency of micturition | CPT/HCPCS: 81003; 87086; 96127; 99212 ==

== ENCOUNTER 2024-06-15 13:22 | Outpatient (AMB) | payer MEDICARE, MEDICAID, SELFPAY ==
--- NOTE | 2024-06-15 13:31 | MHC.PC.OV ---
Vital Signs 06/15/24 13:37 Height 5 ft 0.5 in Weight 173 lb BMI 33.2 BP 106/66 Blood Pressure Location Lt brachial Position Sitting Respiration 18 Pulse 80 Pulse Source Pulse Oximeter Temp 98.0 F Temp Source Oral Pulse Oximetry (%) 96 Oxygen Delivery Method Room Air Intake Visit Reasons: Follow up on renal u/s and abdominal discomfort Intake Note: Pt is here today for a follow up visit on u/s result and pt is c/o R abdominal pain. Pt also would like referral to PT for R shoulder blade pain. Allergies codeine Allergy (Intermediate, Verified 06/15/24 13:40) Headache Medication List - Last Reconciled 06/15/24 by Teressa Stoner MD ascorbate calcium (vitamin C) 500 mg PO DAILY calcium carb-D3-mag ox-zinc ox 333 mg-133 unit -133 mg-5 mg (Eric Mag Zinc Plus D3) tabs PO calcium citrate 500 mg (2 x 250 mg calcium) PO DAILY 30 days cholecalciferol (vitamin D3) 50 mcg PO DAILY coenzyme Q10 (CoQ-10) 100 mg PO DAILY epinephrine 0.3 mg (0.3 mL) IM Q4H PRN magnesium 250 mg PO DAILY omeprazole 40 mg PO DAILY Tobacco use date assessed: 06/15/24 Fall risk assessment: No Falls in past year Last assessed Fall Risk: 06/15/24 Dental Screening Dental Screen Date: 06/15/24 Did you have a dental visit in the last 12 months?: Yes Did you have a dental problem in the last 6 months where you did not have access to dental care?: No Was dental information given to patient?: Patient has dentist HPI Follow up on renal u/s and abdominal discomfort HPI Details Pt c/o epigastric RUQ and left lower quadrant abd pain radiating to back and scapular region, increase gas and cramps for 2 weeks. Symptoms hours after eating. She denies fever chills diarrhea constipation hematochezia melena. patient is waiting for appointment with GI for colonoscopy. [facility] Medical History (Updated 06/15/24 @ 14:49 by Teressa Stoner MD) Tick bite Right carpal tunnel syndrome Food allergic skin reaction Thoracic spine pain Carpal tunnel syndrome Abnormal skin growth Vitamin D deficiency Multinodular thyroid Thyroid nodule Hyperlipidemia Surgical History Hx of biopsy Hx of mammogram Hx of shoulder surgery Hx of cholecystectomy Hx of appendectomy H/O colonoscopy Family History Father No problems noted. Mother No problems noted. 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 1. Little interest or pleasure in doing things: nearly every day 2. Feeling down, depressed, or hopeless: not at all 3. Trouble falling or staying asleep, or sleeping too much: not at all 4. Feeling tired or having little energy: not at all 5. Poor appetite or overeating: several days 6. Feeling bad about yourself - or that you are a failure or have let yourself or your family down: not at all 7. Trouble concentrating on things, such as reading the newspaper or watching television: several days 8. Moving or speaking so slowly that other people could have noticed. Or the opposite - being so fidgety or restless that you have been moving around a lot more than usual: not at all 9. Thoughts that you would be better off or of hurting yourself in some way: not at all Total score: 5 Depression Screening Interpretation: Negative Depression Screening Done: Yes 63856 - PHQ-9 Billing: Yes Source: Developed by Drs. Alcides Cervantes, Arline Giraldo, Audie Broderick and colleagues, with an educational palomo from [employer]. Thrive Questionnaire Date Thrive assessed: 06/15/24 I am a: Patient What is your living situation today?: I have a steady place to live Within the past 12 months, did the food you bought not last and you didn't have the money to get more?: Never true Within the past 12 months, did you worry whether your food would run out before you got money to buy more?: Never true Do you have trouble paying for medicines?: No Do you have trouble getting transportation to medical appointments?: No Do you have trouble paying your heating and electricity bill?: No Do you have trouble taking care of your child, family member or friend?: No Do you have trouble with day-to-day activities such as bathing, preparing meals, shopping, managing finances, etc.?: No Are you currently unemployed and looking for a job?: No Are you interested in more education?: No Please select the resources that you would like help with: None THRIVE Score: 0 AUDIT C Alcohol Use Questionnaire (AUDIT-C) 1. How often do you have a drink containing alcohol?: Never 3. How often do you have six or more drinks on one occasion?: Never Total Score: 0 PIETRO-7 AMB Questionnaire PIETRO-7 Date PIETRO - 7 assessed: 06/15/24 Feeling nervous, anxious, or on edge: 0 = Not at all Not being able to stop or control worryin = Not at all Worrying too much about different things: 0 = Not at all Trouble relaxin = Not at all Being so restless that it is hard to sit still: 0 = Not at all Becoming easily annoyed or irritable: 0 = Not at all Feeling afraid as if something awful might happen: 0 = Not at all Total PIETRO-7 score (0-4 normal; 5-9 mild; 10-14 moderate; 15-21 severe): 0 Source: Developed by Drs. Alcides Cervantes, Arline Giraldo, Audie Broderick and colleagues, with an educational palomo from [employer]. PIETRO-7 Assessment Billing PIETRO-7 Assessment Tool: PIETRO-7 Assessment 40498 Review of Systems Const All systems reviewed & are unremarkable except as noted in HPI and below ENT Reports no additional complaints Card Reports no additional complaints Resp Reports no additional complaints GI Reports no additional complaints Reports no additional complaints Physical exam (Primary Care) Vital Signs: Last Vital Signs Temp 98.0 F 06/15/24 13:37 Pulse 80 06/15/24 13:37 Resp 18 06/15/24 13:37 BP 106/66 06/15/24 13:37 Pulse Ox 96 06/15/24 13:37 Oxygen Delivery Method Room Air 06/15/24 13:37 BMI result Body Mass Index 33.2 Tobacco/Smoking Status: Tobacco use Status Tobacco use date assessed 06/15/24 06/15/24 13:32 Patient Tobacco Use Status Never used Tobacco 06/15/24 13:32 e-Cigarette/Vaping Use Never Used 06/15/24 13:32 PHQ-9: PHQ-9 Score PHQ-9: Total score 5 06/15/24 14:04 Depression Screening Interpretation: Negative Thrive Assessment: Date of Thrive Assessment Date Thrive assessed 06/15/24 06/15/24 13:32 Const General: no acute distress HENMT Head: Yes normal to inspection Resp Effort & Inspection: normal respiratory effort Auscultation: clear to auscultation bilaterally Cardio Rhythm: regular rhythm Heart sounds: S1 normal heart sound present and S2 normal heart sound present GI Other: Right upper quadrant left lower quadrant and epigastric tenderness no rebound or guarding. No CVA tenderness Inspection: Yes normal to inspection Palpation (GI): Soft to palpation Percussion: Yes normal to percussion Auscultation: normal bowel sounds Results AMB Urinalysis, Automated UA Leukoctes 0 Guera/uL Last Edit by KAREN Suazo on 06/15/24 14:40 UA Nitrite Negative Last Edit by Joselin Douglas Bennett on 06/15/24 14:40 UA Urobilinogen 0.2 mg/dL Last Edit by Joselin Douglas Bennett on 06/15/24 14:40 UA Protein 0 mg/dL Last Edit by Joselin Douglas Bennett on 06/15/24 14:40 UA pH 6.0 Last Edit by Joselin Douglas [facility] on 06/15/24 14:40 UA Blood 0 Hayden/uL Last Edit by KAREN Suazo on 06/15/24 14:40 UA Specific [place] 1.025 Last Edit by KAREN Suazo on 06/15/24 14:40 UA Ketone Negative Last Edit by Joselin Douglas Bennett on 06/15/24 14:40 UA Bilirubin 0 mg/dL Last Edit by KAREN Suazo on 06/15/24 14:40 UA Glucose 0 mg/dL Last Edit by KAREN Suazo on 06/15/24 14:40 Coding Level of Care Code Est Pt Level 4 (07211) Diagnoses Diverticulitis K57.92 Cervical radiculopathy M54.12 Additional Codes PIETRO-7 Assessment Billing - PIETRO-7 Assessment Tool: PIETRO-7 Assessment 57039 ([id number]) PHQ-9 - 84685 - PHQ-9 Billing: Yes ([id number]) Assessment & Plan Assessment & Plan (1) Diverticulitis: Code(s): K57.92 - Diverticulitis of intestine, part unspecified, without perforation or abscess without bleeding Category: Medical Plan: Obtain CT of the abdomen and pelvis throat diverticulitis, check CBC comprehensive panel lipase, Levaquin 750 mg daily for 7 days is prescribed and omeprazole 40 mg daily for gastritis and chronic GERD. Urine dipstick is negative for UTI or hematuria, obtain urine culture (2) Cervical radiculopathy: Code(s): M54.12 - Radiculopathy, cervical region Category: Medical Plan: Continue meloxicam p.r.n. patient will schedule an appointment with physical therapy Orders: Orders AMB Urinalysis Automated Today R10.9 - Unspecified abdominal pain CT abdomen pelvis wo/w IV con Today K57.92 - Diverticulitis of intestine, part unspecified, without perforation or abscess without bleeding Comprehensive Met. Panel Today K57.92 - Diverticulitis of intestine, part unspecified, without perforation or abscess without bleeding PT Evaluation and Treatment Today M54.12 - Radiculopathy, cervical region Lipase Today R10.9 - Unspecified abdominal pain Complete Blood Count Auto Diff Today K57.92 - Diverticulitis of intestine, part unspecified, without perforation or abscess without bleeding Medications: New omeprazole 40 mg PO DAILY 90 caps 0RF scopolamine base 1 patch transdermal Q3D PRN 4 ea 0RF nausea and vomiting levofloxacin 750 mg PO DAILY 7 days 7 tabs 0RF meloxicam 15 mg PO DAILY 14 tabs 0RF scopolamine base 1 patch transdermal Q3D PRN 4 ea 0RF nausea and vomiting epinephrine (EpiPen 2-Chepe) for 2 doses 0.3 mg (0.3 mL) IM Q10M PRN 2 ea 0RF anaphylaxis
[2024-06-15 13:37] VITALS: BP 106/66; PULSE 80; RESP 18; TEMP 36.7; O2SAT 96; BMI 33.2
--- OUTSIDE RECORDS SUMMARY | 2024-06-15 15:54 | XMS_ITS | Clinical Summary ---
Author Organization [facility] Address [address] [place] [address] Care Team Providers Care Associate Software Engineer Name Role Phone Teressa Stoner MD Primary Care Provider [phone] Surgical History Surgery Date Site/Laterality Comments APPENDECTOMY PROCEDURE: HISTORICAL APPENDECTOMY; COMMENT: 1972 BLADDER SURGERY 03/2005 PROCEDURE: HISTORICAL BLADDER SURGERY; COMMENT: Cystocele repair, Bladder sling CHOLECYSTECTOMY 2000 PROCEDURE: HISTORICAL CHOLECYSTECTOMY COLONOSCOPY 02/09/2017 PROCEDURE: HISTORICAL COLONOSCOPY; COMMENT: adenoma; repeat in 5 yrs UPPER GASTROINTESTINAL ENDOSCOPY 05/14/2018 PROCEDURE: SC UPPER GI ENDOSCOPY PERFORMED; COMMENT: normal. FLEXIBLE [...] History Relation Name Comments Diabetes Brother age 52-[place] Heart failure Father Kidney stones Heart attack [...] Recently Relevant to Health Maintenance Care Teams Associate Software Engineer Relationship Specialty Start Date End Date Teressa Stoner MD [address] [place] [address] PCP - General Internal Medicine 03/29/24
== END 2024-06-15 15:05 | disposition home or self-care (01) ==
LOC: HO.HMCC 13:23
PROVIDERS: PCP Internal Medicine; Visit Provider Internal Medicine
DX: K57.92 Diverticulitis of intestine, part unspecified, without perforation or abscess without bleeding (principal); M54.12 Radiculopathy, cervical region; R10.9 Unspecified abdominal pain

== ENCOUNTER 2024-06-20 09:45 | Outpatient (REF) | payer MEDICARE, MEDICAID, SELFPAY ==
[2024-06-20 13:49] LABS: MANUAL DIFF FLAG NO
[2024-06-20 13:55] LABS: Basophils Absolute Auto 0.1 X10*3/uL (0.0-0.2); Basophils Percent Auto 0.7 % (0-2); Eosinophils Absolute Auto 0.3 X10*3/uL (0.0-0.4); Eosinophils Percent Auto 3.7 % (0-4); Hemoglobin 14.8 g/dl (12.0-16.0); Imm Gran Abs Auto 0.02 X10*3/uL (0.00-0.03); Imm Gran Pct Auto 0.3 % (0.0-0.4); Lymphocytes Absolute Auto 3.1 X10*3/uL (1.2-4.9); Lymphocytes Percent Auto 40.4 % (20-40); Mean Corpuscular HGB Conc 33.6 g/dl (31.0-35.0); Mean Corpuscular Volume 95.2 fL (80.0-98.0); Monocytes Absolute Auto 0.6 X10*3/uL (0.1-1.2); Monocytes Percent Auto 7.9 % (2-11); Neutrophils Absolute Auto 3.6 x10*3/uL (2.0-8.3); Platelet Count 268 X10*3/uL (160-400); Red Blood Count 4.62 X10*6/uL (4.20-5.50); Red Cell Distribution Width 12.6 % (11.0-16.0); White Blood Count 7.6 X10*3/uL (4.8-10.8)
[2024-06-20 14:19] LABS: Alanine Aminotransferase 20 U/L (0-31); Alkaline Phosphatase 86 U/L (39-117); Anion Gap 9 (12-20); Aspartate Amino Transferase 30 U/L (5-31); Bilirubin Total 0.4 mg/dL (0.0-1.0); Blood Urea Nitrogen 17 mg/dL (9-16); Calcium 8.8 mg/dL (8.4-10.2); Carbon Dioxide 27 mmol/L (22-29); Chloride 109 mmol/L (96-108); Estimated Glomerular Filt Rate > 60; Glucose Random 123 mg/dL (60-115); Lipase 31 U/L (8-78); Potassium 4.2 mmol/L (3.3-5.1); Sodium 141 mmol/L (135-145); Total Protein 7.2 g/dL (6.5-8.0)
== END 2024-06-20 09:46 | disposition home or self-care (01) ==
LOC: HO.HMGCLDS 09:45
PROVIDERS: PCP Internal Medicine; Visit Provider Internal Medicine
DX: K57.92 Diverticulitis of intestine, part unspecified, without perforation or abscess without bleeding (principal); R10.9 Unspecified abdominal pain
CPT/HCPCS: 36415; 80053; 83690; 85025

== ENCOUNTER 2024-06-23 11:59 | Outpatient (REF) | payer MEDICARE, MEDICAID, SELFPAY ==
--- NOTE | ~2024-06-23 | CT_ITS ---
EXAMINATION: CT ABDOMEN AND PELVIS WITH CONTRAST CLINICAL INFORMATION: Diverticulitis without perforation. COMPARISON: CT angiogram abdomen and pelvis dated March 25, 2024. TECHNIQUE: Multidetector volumetric images were obtained from the superior aspect of the liver through the pubic symphysis following administration 85 mL of Omnipaque 350 intravenous contrast. Sagittal and coronal reformatted images were obtained on the technologist's workstation. Oral contrast: [address] examination was performed using dose optimization techniques as appropriate, variously including the following: *Automated exposure control *Adjustment of mA and/or kV according to patient size (this includes techniques or standardized protocols for targeted exams where dose is matched to indication/reason for exam; i.e. extremities or head) *Use of iterative reconstruction technique. DLP: 391 mGy centimeter. FINDINGS: LUNG BASES: No acute airspace disease. LIVER, GALLBLADDER, AND BILIARY TREE: Liver measures 15 cm. Decreased enhancement pattern. There is a 2.7 cm fluid density in the caudate lobe. There is a 1 cm hypodensity in the peripheral right hepatic lobe. There is a 0.6 cm hypodensity in the right hepatic lobe. Main portal vein and hepatic veins and intrahepatic portion of the IVC are patent. Status post cholecystectomy. No intrahepatic or extrahepatic biliary ductal dilatation. PANCREAS: No focal lesion. No peripancreatic fluid collection. No main pancreatic ductal dilatation. SPLEEN: 8 cm. No focal lesion. ADRENAL GLANDS: No nodular lesion. KIDNEYS AND URETERS: No hydronephrosis. Questionable 1 mm calculus in the upper pole left kidney. Normal enhancement pattern of the renal parenchyma without gross mass. BLADDER: Fluid-filled. GASTROINTESTINAL TRACT: Absent appendix. Abundant stool. No intestinal obstruction pattern. No pneumatosis intestinalis. No pneumoperitoneum. No gross wall thickening. No discrete diverticulum in the large intestine. No ascites. No peripheral enhancing fluid collection, peritoneal cavity. ABDOMINAL WALL: Small fat-containing umbilical hernia. LYMPH NODES: Nonspecific mildly prominent lymph nodes, retroperitoneum. VASCULAR: No aneurysm or dissection, abdominal aorta. PELVIC VISCERA: No gross masses. OSSEOUS STRUCTURES: Castellvi type I sacralization. Multilevel thoracolumbar spondylosis. No acute fracture or gross listhesis. Degenerative changes in the sacroiliac joints. No acute fracture in the bony pelvis. Degenerative changes in the symphysis pubis. CT/CT abdomen pelvis w IV con IMPRESSION: No diverticular disease. Cystic lesions, hepatic. Small fat-containing umbilical hernia. Fleischner guidelines were followed. Electronically signed by: Abdulaziz Schafer MD 06/23/2024 03:41 PM EDT
--- OUTSIDE RECORDS SUMMARY | 2024-06-23 13:15 | XMS_ITS | Encounter Summary ---
Author Organization [facility] Address [address] [place] [address] Care Team Providers Care Seamer Operator Name Role Phone Paola Finney DO Primary Care Pro vider Unavailable Community, Pcp Primary Care Provider Unavailabl e Reason for Visit * Reason Onset Date Comments TEST RESULTS 12/06/2018 result notes Encounter Details Date Type Department Care Team Description 12/06/2018 Telephone Adult Medicine [address] [address] Aye Wiseman PA-C TEST RESULTS (result notes) [...] on filedocumented in this encounter Care Teams Seamer Operator Relationship Specialty Start Date End Date Paola Finney DO PCP - General Internal Medicine 06/29/15 10/24/21 Community, Pcp PCP - General Internal Medicine 10/25/21 documented as of this encounter
--- OUTSIDE RECORDS SUMMARY | 2024-06-23 13:15 | XMS_ITS | Encounter Summary ---
Author Organization [facility] [employer] [facility] Address [address] [place] [address] Care Team Providers Care Shade Hanger Name Role Phone Paola Finney DO Primary Care Pro vider Unavailable Community, Pcp Primary Care Provider Unavailabl e Encounter Details Date Type Department Care Team Description 10/04/2015 Release of Information Medical Records [address] [place] [id number] Abstract, Provider Social History Tobacco Use Types [...] on filedocumented in this encounter Care Teams Shade Hanger Relationship Specialty Start Date End Date Paola Finney DO PCP - General Internal Medicine 06/29/15 10/24/21 [facility], Pcp PCP - General Internal Medicine 10/25/21 documented as of this encounter
--- OUTSIDE RECORDS SUMMARY | 2024-06-23 13:15 | XMS_ITS | Encounter Summary ---
Author Organization [facility] Address [address] [place] [address] Care Team Providers Care Contractor Broomcorn Threshing Name Role Phone Paola Finney DO Primary Care Pro vider Unavailable Community, Pcp Primary Care Provider Unavailabl e Encounter Details Date Type Department Care Team Description 09/22/2018 [facility] Controlled Substance Contract Medical Records [address] [place] [address] Abstract, Provider Social History Tobacco Use Types [...] on filedocumented in this encounter Care Teams Contractor Broomcorn Threshing Relationship Specialty Start Date End Date Paola Finney DO PCP - General Internal Medicine 06/29/15 10/24/21 [facility], Pcp PCP - General Internal Medicine 10/25/21 documented as of this encounter
--- OUTSIDE RECORDS SUMMARY | 2024-06-23 13:15 | XMS_ITS | Encounter Summary ---
Author Organization [facility] Address [address] [place] [address] Care Team Providers Care Cattle Tester Name Role Phone Paola Finney DO Primary Care Pro vider Unavailable Community, Pcp Primary Care Provider Unavailabl e Reason for Visit * Reason Onset Date Comments REFERRAL 11/26/2018 General Surgery Encounter Details Date Type Department Care Team Description 11/26/2018 Telephone Medicine/Pediatrics - [address] [address] Paola Finney DO REFERRAL (General Surgery) Social [...] on filedocumented in this encounter Care Teams Cattle Tester Relationship Specialty Start Date End Date Paola Finney DO PCP - General Internal Medicine 06/29/15 10/24/21 [facility], Pcp PCP - General Internal Medicine 10/25/21 documented as of this encounter
--- OUTSIDE RECORDS SUMMARY | 2024-06-23 13:15 | XMS_ITS | Clinical Summary ---
Author Organization [facility] Address [address] [place] [address] Care Team Providers Care Principal Secretary Name Role Phone Teressa Stoner MD Primary Care Provider [phone] Surgical History Surgery Date Site/Laterality Comments APPENDECTOMY [...] History Relation Name Comments Diabetes Brother age 52-[place] Heart failure Father Kidney stones Heart attack [...] - Risk 3-dose series) 2012 RSV Immunization Adult Patients (1 - Risk 60-74 years 1-dose series) [...] Breast cancer risk category Low (<15%) Paola Lambert-Kashmir DO IMG XR PROCEDURES Final Result from Last 3 Months or Most Recently Relevant to Health Maintenance Care Teams Principal Secretary Relationship Specialty Start Date End Date Teressa Stoner MD [address] [place] [address] PCP - General Internal Medicine 03/29/24
--- OUTSIDE RECORDS SUMMARY | 2024-06-23 13:15 | XMS_ITS | Encounter Summary ---
Author Organization [facility] Address [facility] [place] [address] Care Team Providers Care Batch Operator Name Role Phone Paola Finney DO Primary Care Pro vider Unavailable Community, Pcp Primary Care Provider Unavailabl e Encounter Details Date Type Department Care Team Description 07/28/2017 Business Doc Medical Records [address] [place] [address] Abstract, Provider Social History Tobacco Use Types [...] on filedocumented in this encounter Care Teams Batch Operator Relationship Specialty Start Date End Date Paola Finney DO PCP - General Internal Medicine 06/29/15 10/24/21 [facility], Pcp PCP - General Internal Medicine 10/25/21 documented as of this encounter
--- OUTSIDE RECORDS SUMMARY | 2024-06-23 13:15 | XMS_ITS | Encounter Summary ---
Author Organization [facility] [employer] [facility] Address [facility] [place] [address] Care Team Providers Care Instrument Maintenance Supervisor Name Role Phone Paola Finney DO Primary Care Pro vider Unavailable Community, Pcp Primary Care Provider Unavailabl e Encounter Details Date Type Department Care Team Description 05/14/2018 Hospital Medical Records [address] [place] [address] Kadeem Moreno MD Social History Tobacco Use [...] on filedocumented in this encounter Care Teams Instrument Maintenance Supervisor Relationship Specialty Start Date End Date Paola Finney DO PCP - General Internal Medicine 06/29/15 10/24/21 [facility], Pcp PCP - General Internal Medicine 10/25/21 documented as of this encounter
--- OUTSIDE RECORDS SUMMARY | 2024-06-23 13:15 | XMS_ITS | Encounter Summary ---
[facility] Address [facility] [place] [address] Care Team Providers Care Semiconductor Packages Platemaker Name Role Phone Paola Finney DO Primary Care Pro vider Unavailable Community, Pcp Primary Care Provider Unavailabl e Encounter Details Date Type Department Care Team Description 07/30/2018 Business Doc Medical Records [address] [place] [address] Abstract, Provider Social History Tobacco Use Types [...] on filedocumented in this encounter Care Teams Semiconductor Packages Platemaker Relationship Specialty Start Date End Date Paola Finney DO PCP - General Internal Medicine 06/29/15 10/24/21 [facility], Pcp PCP - General Internal Medicine 10/25/21 documented as of this encounter
[2024-06-23] MEDS: iohexoL 350 MG/ML 75 ML INFUS..BTL 85 ML IV (15:02)
[2024-06-23] MEDS: Barium Sulfate Oral (Mocha) 450 ML ORAL.SUSP 900 ML PO (15:02)
== END 2024-06-23 12:00 | disposition home or self-care (01) ==
LOC: HO.CT 11:59
PROVIDERS: Visit Provider Internal Medicine
DX: K57.92 Diverticulitis of intestine, part unspecified, without perforation or abscess without bleeding (principal)
CPT/HCPCS: 74177; Q9967

== ENCOUNTER → 2024-06-23 12:00 | Outpatient (BNV) | payer MEDICARE, MEDICAID, SELFPAY | PROVIDERS: Visit Provider Radiology Diagnostic Radiology | DX: K76.89 Other specified diseases of liver (principal); K42.9 Umbilical hernia without obstruction or gangrene | CPT/HCPCS: 74177 ==

== ENCOUNTER 2024-07-07 10:03 | Outpatient (AMB) | payer MEDICARE, MEDICAID, SELFPAY ==
[2024-07-07 10:07] VITALS: BMI 33.2
--- NOTE | 2024-07-07 10:07 | A.OFFVIS_ITS ---
Vital Signs 07/07/24 10:07 Height 5 ft 0.5 in Weight 173 lb BMI 33.2 Intake Visit Reasons: N/P rt ulnar neuropathy at elbow Intake Note: Dilcia 74 yr old right hand dominant female presents today as a new patient for a evaluation for her right arm. States she is having a little numbness and tinging in her pinky, pain in her elbow, swelling on her lateral aspect of elbow and weakness in her right arm. States she has good and bad days. No recent injury she can recall. EMG done. Hx of rotator cuff surgery in [place] in 2005. Allergies codeine Allergy (Intermediate, Verified 07/07/24 10:13) Headache HPI Comments Details: Last seen by hand surgery 06/17/24, s/p left carpal tunnel release DOS: 05/31/24 w/ Dr Roseline Santamaria. EMG by me on RUE 06/24/24: right UNE. History of remote right RTC surgery. Pain/swelling on right lateral elbow, radiating to 4th and 5th digits. Denies weakness, atrophy or swelling on fingers/hand. Right 4th and 5th digits are numb. Has some neck pain but says pain is coming distally, going up to upper arm and neck. Had PT for neck/back pain. Wondering about therapy for arm (OT). [facility] Medical History (Updated 07/07/24 @ 10:38 by Faith Emmanuel MD) Tick bite Right carpal tunnel syndrome Food allergic skin reaction Thoracic spine pain Carpal tunnel syndrome Abnormal skin growth Vitamin D deficiency Multinodular thyroid Thyroid nodule Hyperlipidemia Surgical History Hx of biopsy Hx of mammogram Hx of shoulder surgery Hx of cholecystectomy Hx of appendectomy H/O colonoscopy Family History Father No problems noted. Mother No problems noted. 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 MSK: Inspection reveals appropriate head and neck positioning. Spurling's sign negative. Right hand - No joint effusion noted. No deformity noted. No intrinsic hand weakness noted. No atrophy noted. Mahi test negative. Carpal compression test negative. Tinel sign negative. Positive right elbow Tinel's sign. No tenderness over lateral or medial epicondyle. No swelling or redness in elbow. Strength is 5/5 in all muscle groups tested. No increased tone noted. Neurological: Neurologic examination of the upper and lower extremities was nonfocal with intact sensation, muscle stretch reflexes and without focal motor deficits . Carnes?s negative bilaterally. Gait is non-antalgic without loss of balance. Results Reviewed Results Reviewed: EMG 06/25/23 IMPRESSION: 1. This is an abnormal study. 2. 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 3. There is no electrodiagnostic evidence for median neuropathy, brachial plexopathy, or cervical radiculopathy. I reviewed records from the following: Hand surgery Assessment & Plan Assessment & Plan (1) Ulnar neuropathy at elbow: Code(s): G56.20 - Lesion of ulnar nerve, unspecified upper limb Category: Medical Qualifiers: Laterality: right Qualified Code(s): G56.21 - Lesion of ulnar nerve, right upper limb (2) Cubital tunnel syndrome on right: Code(s): G56.21 - Lesion of ulnar nerve, right upper limb Category: Medical Plan Patient previously seen by me for EMG. Reviewed EMG results, showing right ulnar neuropathy at the elbow. Patient would like to trial OT 1st. She has an external facility in mind. Referral given. She may see Dr. Santamaria after OT if not improved. Assessment and plan discussed with patient, and patient was agreeable. All questions were answered thoroughly. Faith Emmanuel MD, PRANEETH Board Certified, [place] [employer] and Rehabilitation (ABPMR) Board Certified, [place] Board of Electrodiagnostic Medicine (ABEM) Orders: Orders OT Evaluation and Treatment Today G56.20 - Lesion of ulnar nerve, unspecified upper limb, G56.21 - Lesion of ulnar nerve, right upper limb Coding Level of Care Code Est Pt Level 3 (51472) Diagnoses Ulnar neuropathy at elbow of right upper extremity G56.21 Laterality: right Cubital tunnel syndrome on right G56.21
--- OUTSIDE RECORDS SUMMARY | 2024-07-07 11:49 | XMS_ITS | Encounter Summary ---
Author Organization [employer] [facility] Address [address] [place] [address] Care Team Providers Care Fish Culturist Name Role Phone Paola Finney DO Primary Care Pro vider Unavailable Community, Pcp Primary Care Provider Unavailabl e Encounter Details Date Type Department Care Team Description 11/09/2018 Assistant Program Director Report Medical Records [address] [place] [address] Alcides Talavera Social History Tobacco Use Types Packs/Day Years [...] on filedocumented in this encounter Care Teams Fish Culturist Relationship Specialty Start Date End Date Paola Finney DO PCP - General Internal Medicine 06/29/15 10/24/21 [facility], Pcp PCP - General Internal Medicine 10/25/21 documented as of this encounter
--- OUTSIDE RECORDS SUMMARY | 2024-07-07 11:49 | XMS_ITS | Encounter Summary ---
Author Organization [facility] [employer] [facility] Address [address] [place] [address] Care Team Providers Care Mgmt Consultant Name Role Phone Paola Finney DO Primary Care Pro vider Unavailable Community, Pcp Primary Care Provider Unavailabl e Encounter Details Date Type Department Care Team Description 10/04/2015 Release of Information Medical Records [address] [place] [id number] Abstract, Provider Social History Tobacco Use Types [...] on filedocumented in this encounter Care Teams Mgmt Consultant Relationship Specialty Start Date End Date Paola Finney DO PCP - General Internal Medicine 06/29/15 10/24/21 [facility], Pcp PCP - General Internal Medicine 10/25/21 documented as of this encounter
--- OUTSIDE RECORDS SUMMARY | 2024-07-07 11:49 | XMS_ITS | Encounter Summary ---
Author Organization [employer] [facility] Address [address] [place] [address] Care Team Providers Care Instrument Technician Name Role Phone Paola Finney DO Primary Care Pro vider Unavailable Community, Pcp Primary Care Provider Unavailabl e Encounter Details Date Type Department Care Team Description 04/27/2017 Orders Only Medical Records [address] [place] [address] Paola Finney DO Social History Tobacco Use [...] filedocumented in this encounter Care Teams Instrument Technician Relationship Specialty Start Date End Date Paola Finney DO PCP - General Internal Medicine 06/29/15 10/24/21 [facility], Pcp PCP - General Internal Medicine 10/25/21 documented as of this encounter
--- OUTSIDE RECORDS SUMMARY | 2024-07-07 11:49 | XMS_ITS | Encounter Summary ---
Author Organization [facility] Address [address] [place] [address] Care Team Providers Care Logistics Planning Manager Name Role Phone Paola Finney DO Primary Care Pro vider Unavailable Community, Pcp Primary Care Provider Unavailabl e Reason for Visit * Reason Onset Date Comments REFERRAL 11/26/2018 General Surgery Encounter Details Date Type Department Care Team Description 11/26/2018 Telephone Medicine/Pediatrics - [address] [address] Paola Finney DO REFERRAL (General Surgery) Social [...] on filedocumented in this encounter Care Teams Logistics Planning Manager Relationship Specialty Start Date End Date Paola Finney DO PCP - General Internal Medicine 06/29/15 10/24/21 [facility], Pcp PCP - General Internal Medicine 10/25/21 documented as of this encounter
--- OUTSIDE RECORDS SUMMARY | 2024-07-07 11:49 | XMS_ITS | Encounter Summary ---
Author Organization [facility] Address [address] [place] [address] Care Team Providers Care Assembler Lay Ups Name Role Phone Paola Finney DO Primary Care Pro vider Unavailable Community, Pcp Primary Care Provider Unavailabl e Reason for Visit * Reason Onset Date Comments medication problems 07/24/2016 Encounter Details Date Type Department Care Team Description 07/24/2016 Telephone Adult Medicine [address] [address] Paola Finney DO medication problems Social History Tobacco Use Types Packs/Day Years Used Date Smoking Tobacco: Former Comments:quit 13 yrs ago Alcohol Use Standard Drinks/Week Comments Not Asked 0 (1 standard drink = 0.6 oz pur e alcohol) Sex Assigned at Date Recorded Not on file documented as of this encounter Miscellaneous Notes * Telephone Encounter - Hannah Tinoco M.A. - 07/28/2016 2:55 PM EDT Has to famcyclovir and valcyclovir tabs first Please reply back to p [id number] Prior Auth pool Hannah Tinoco M.A. Regional Prior Authorizations Ext [id number] * Telephone Encounter - Caitie Mcghee M.A. - 07/24/2016 10:13 AM EDT Acyclovir oint not covered by ins. I called pharmacy non formulary drug, will ask prior auth dept to ask for approval * Telephone Encounter - Davidbryon Kendrcik - 07/24/2016 10:04 AM EDT What is the name of the medication patient is having a problem with?: acyclovir (ZOVIRAX) 5 % ointment What is the problem?: Med not covered Is the patient calling about the problem? NO If the patient is not the caller who is? [facility] Is this a NEW medication?: YES How long has the patient been taking this medication? Who prescribed this medication for the patient? Paola Flynn Who is patients PCP?: Paola Flynn Payor: MEDICARE-[employer] / Plan: [place] / Product Type: MEDICARE [id number] documented in this encounter Plan of Treatment Not on file documented as of this encounter Visit Diagnoses Not on filedocumented in this encounter Care Teams Assembler Lay Ups Relationship Specialty Start Date End Date Paola Finney DO PCP - General Internal Medicine 06/29/15 10/24/21 [facility], Pcp PCP - General Internal Medicine 10/25/21 documented as of this encounter
--- OUTSIDE RECORDS SUMMARY | 2024-07-07 11:49 | XMS_ITS | Encounter Summary ---
[facility] Address [facility] [place] [address] Care Team Providers Care Log Handler Name Role Phone Paola Finney DO Primary Care Pro vider Unavailable Community, Pcp Primary Care Provider Unavailabl e Encounter Details Date Type Department Care Team Description 07/28/2017 Business Doc Medical Records [address] [place] [id number] Abstract, Provider Social History Tobacco Use Types [...] on filedocumented in this encounter Care Teams Log Handler Relationship Specialty Start Date End Date Paola Finney DO PCP - General Internal Medicine 06/29/15 10/24/21 [facility], Pcp PCP - General Internal Medicine 10/25/21 documented as of this encounter
--- OUTSIDE RECORDS SUMMARY | 2024-07-07 11:49 | XMS_ITS | Clinical Summary ---
Author Organization [facility] Address [address] [place] [address] Care Team Providers Care Hardwood Floor Layer Name Role Phone Teressa Stoner MD Primary Care Provider Surgical History Surgery Date Site/Laterality Comments APPENDECTOMY PROCEDURE: HISTORICAL APPENDECTOMY; COMMENT: 1972 BLADDER SURGERY 03/2005 PROCEDURE: HISTORICAL BLADDER SURGERY; COMMENT: Cystocele repair, Bladder sling CHOLECYSTECTOMY 2000 PROCEDURE: HISTORICAL CHOLECYSTECTOMY COLONOSCOPY 02/09/2017 PROCEDURE: HISTORICAL COLONOSCOPY; COMMENT: adenoma; repeat in 5 yrs UPPER GASTROINTESTINAL ENDOSCOPY 05/14/2018 PROCEDURE: [place] UPPER GI ENDOSCOPY PERFORMED; COMMENT: normal. FLEXIBLE [...] - 2023-2 5 season) 2023 Influenza Vaccine (Season Ended) 2024 DTaP,Tdap,and Td Vaccines (2 - Td or [...] age to complete this topic Meningococcal B Vaccine Aged Out No l onger eligible based on patient's age to complete [...] Recently Relevant to Health Maintenance Care Teams Hardwood Floor Layer Relationship Specialty Start Date End Date Teressa Stoner MD [address] [place] [address] PCP - General Internal Medicine 03/29/24
== END 2024-07-07 11:15 | disposition home or self-care (01) ==
LOC: HO.HOS 10:04
PROVIDERS: PCP Internal Medicine; Visit Provider Physical Medicine & Rehabilitation
DX: G56.21 Lesion of ulnar nerve, right upper limb (principal)
CPT/HCPCS: 99213

== ENCOUNTER → 2024-07-07 10:03 | Outpatient (BNVA) | payer MEDICARE, MEDICAID, SELFPAY | PROVIDERS: PCP Internal Medicine; Visit Provider Physical Medicine & Rehabilitation | DX: G56.21 Lesion of ulnar nerve, right upper limb (principal) | CPT/HCPCS: 99212 ==

== ENCOUNTER 2024-07-15 09:53 | Outpatient (AMB) | payer MEDICARE, MEDICAID, SELFPAY ==
[2024-07-15 09:55] VITALS: BP 120/70; PULSE 68; RESP 18; O2SAT 96; BMI 32.5
--- NOTE | 2024-07-15 09:55 | A.OFFPC_ITS ---
Vital Signs 07/15/24 09:55 Height 5 ft 0.5 in Weight 169 lb BMI 32.5 BP 120/70 Blood Pressure Location Lt brachial Position Sitting Respiration 18 Pulse 68 Pulse Source Pulse Oximeter Pulse Oximetry (%) 96 Oxygen Delivery Method Room Air Intake Visit Reasons: Follow up Intake Note: Pt is here today for a follow up visit on abdominal pain. Allergies codeine Allergy (Intermediate, Verified 07/15/24 09:57) Headache Tobacco use date assessed: 06/15/24 Dental Screening Dental Screen Date: 06/15/24 HPI Follow up HPI Details Pt presents for the follow-up. Abdominal pain resolved after omeprazole and course of Levaquin. CT of the abdomen and pelvis showed constipation and benign liver cysts. Patient is going on [employer] cruise next month [facility] Medical History Tick bite Right carpal tunnel syndrome Food allergic skin reaction Thoracic spine pain Carpal tunnel syndrome Abnormal skin growth Vitamin D deficiency Multinodular thyroid Thyroid nodule Hyperlipidemia Surgical History Hx of biopsy Hx of mammogram Hx of shoulder surgery Hx of cholecystectomy Hx of appendectomy H/O colonoscopy Family History Father No problems noted. Mother No problems noted. 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 Alcides Cervantes, Arline Giraldo, Audie Broderick and colleagues, with an educational palomo from [employer] Review of Systems Const All systems reviewed & are unremarkable except as noted in HPI and below Reports no additional complaints Eyes Reports no additional complaints ENT Reports no additional complaints Card Reports no additional complaints Resp Reports no additional complaints GI Reports no additional complaints Reports no additional complaints Physical exam (Primary Care) Vital Signs: Last Vital Signs Pulse 68 07/15/24 09:55 Resp 18 07/15/24 09:55 BP 120/70 07/15/24 09:55 Pulse Ox 96 07/15/24 09:55 Oxygen Delivery Method Room Air 07/15/24 09:55 BMI result Body Mass Index 32.5 Tobacco/Smoking Status: Tobacco use Status Tobacco use date assessed 06/15/24 07/15/24 09:56 Patient Tobacco Use Status Never used Tobacco 07/15/24 09:56 e-Cigarette/Vaping Use Never Used 07/15/24 09:56 Thrive Assessment: Date of Thrive Assessment Date Thrive assessed 06/15/24 07/15/24 09:56 Const General: no acute distress HENMT Head: Yes normal to inspection Throat: Yes posterior oropharynx normal Neck Neck: Yes supple Resp Effort & Inspection: normal respiratory effort Auscultation: clear to auscultation bilaterally Cardio Rhythm: regular rhythm Heart sounds: S1 normal heart sound present and S2 normal heart sound present GI Inspection: Yes normal to inspection Palpation (GI): Soft to palpation Percussion: Yes normal to percussion Auscultation: normal bowel sounds Coding Level of Care Code Est Pt Level 3 (99709) Diagnoses Benign liver cyst K76.89 Hyperlipidemia E78.5 Vitamin D deficiency E55.9 Assessment & Plan Assessment & Plan (1) Benign liver cyst: Comment: CT abd/pelvis 06/2024, check US in 6 months Code(s): K76.89 - Other specified diseases of liver Category: Medical Plan: Patient reassured. She will have a abdominal ultrasound in 6 months to follow (2) Hyperlipidemia: Code(s): E78.5 - Hyperlipidemia, unspecified Category: Medical Plan: Continue low-cholesterol diet (3) Vitamin D deficiency: Code(s): E55.9 - Vitamin D deficiency, unspecified Category: Medical Plan: Continue vitamin-D supplement Orders: Orders US abdomen complete 6 Months K76.89 - Other specified diseases of liver Comprehensive [place]. Panel Fast 6 Months E55.9 - Vitamin D deficiency, unspecified, E78.5 - Hyperlipidemia, unspecified, K76.89 - Other specified diseases of liver, R73.9 - Hyperglycemia, unspecified Complete Blood Count Auto Diff 6 Months E55.9 - Vitamin D deficiency, unspecified, E78.5 - Hyperlipidemia, unspecified, K76.89 - Other specified diseases of liver, R73.9 - Hyperglycemia, unspecified Vitamin D 25-OH Total 6 Months E55.9 - Vitamin D deficiency, unspecified, E78.5 - Hyperlipidemia, unspecified, K76.89 - Other specified diseases of liver, R73.9 - Hyperglycemia, unspecified Vitamin B12 and Folate 6 Months E55.9 - Vitamin D deficiency, unspecified, E78.5 - Hyperlipidemia, unspecified, K76.89 - Other specified diseases of liver, R73.9 - Hyperglycemia, unspecified TSH reflex Free T4 6 Months E55.9 - Vitamin D deficiency, unspecified, E78.5 - Hyperlipidemia, unspecified, K76.89 - Other specified diseases of liver, R73.9 - Hyperglycemia, unspecified Lipid Panel 6 Months E55.9 - Vitamin D deficiency, unspecified, E78.5 - Hyperlipidemia, unspecified, K76.89 - Other specified diseases of liver, R73.9 - Hyperglycemia, unspecified
--- OUTSIDE RECORDS SUMMARY | 2024-07-15 10:19 | XMS_ITS | Encounter Summary ---
Author Organization [facility] Address [address] [place] [address] Care Team Providers Care Science Liaison Name Role Phone Paola Finney DO Primary Care Pro vider Unavailable Community, Pcp Primary Care Provider Unavailabl e Reason for Visit * Reason Onset Date Comments Tentmaker Feedback 09/20/2018 neurosurgery Encounter Details Date Type Department Care Team Description 09/20/2018 Telephone Adult Medicine [address] [address] Paola Finney DO Tentmaker Feedback (neurosurgery) Social History Tobacco Use Types [...] All set * Telephone Encounter - Lois Spears - 09/20/2018 11:[address] [...] on filedocumented in this encounter Care Teams Science Liaison Relationship Specialty Start Date End Date Paola Finney DO PCP - General Internal Medicine 06/29/15 10/24/21 [facility], Pcp PCP - General Internal Medicine 10/25/21 documented as of this encounter
--- OUTSIDE RECORDS SUMMARY | 2024-07-15 10:19 | XMS_ITS | Encounter Summary ---
Author Organization [facility] Address [address] [place] [address] Care Team Providers Care Tappet Adjuster Name Role Phone Paola Finney DO Primary Care Pro vider Unavailable Community, Pcp Primary Care Provider Unavailabl e Reason for Visit * Reason Onset Date Comments REFERRAL 11/26/2018 General Surgery Encounter Details Date Type Department Care Team Description 11/26/2018 Telephone Medicine/Pediatrics - [address] [address] Paola Finney DO REFERRAL (General Surgery) Social [...] on filedocumented in this encounter Care Teams Tappet Adjuster Relationship Specialty Start Date End Date Paola Finney DO PCP - General Internal Medicine 06/29/15 10/24/21 [facility], Pcp PCP - General Internal Medicine 10/25/21 documented as of this encounter
--- OUTSIDE RECORDS SUMMARY | 2024-07-15 10:19 | XMS_ITS | Encounter Summary ---
Author Organization [employer] [facility] Address [address] [place] [address] Care Team Providers Care Breaker Up Machine Operator Name Role Phone Paola Finney DO Primary Care Pro vider Unavailable Community, Pcp Primary Care Provider Unavailabl e Encounter Details Date Type Department Care Team Description 11/09/2018 Esthetician Report Medical Records [address] [place] [address] Alcides Talavera Social History Tobacco Use Types [...] on filedocumented in this encounter Care Teams Breaker Up Machine Operator Relationship Specialty Start Date End Date Paola Finney DO PCP - General Internal Medicine 06/29/15 10/24/21 [facility], Pcp PCP - General Internal Medicine 10/25/21 documented as of this encounter
--- OUTSIDE RECORDS SUMMARY | 2024-07-15 10:19 | XMS_ITS | Encounter Summary ---
Author Organization [facility] Address [address] [place] [address] Care Team Providers Care Commercial Service Technician Name Role Phone Paola Finney DO Primary Care Pro vider Unavailable Community, Pcp Primary Care Provider Unavailabl e Reason for Visit * Reason Onset Date Comments REFERRAL 08/25/2018 Encounter Details Date Type Department Care Team Description 08/25/2018 Telephone Physiatry - [address] [address] Kory Laguerre PA-C REFERRAL Social History Tobacco [...] on filedocumented in this encounter Care Teams Commercial Service Technician Relationship Specialty Start Date End Date Paola Finney DO PCP - General Internal Medicine 06/29/15 10/24/21 [facility], Pcp PCP - General Internal Medicine 10/25/21 documented as of this encounter
--- OUTSIDE RECORDS SUMMARY | 2024-07-15 10:19 | XMS_ITS | Encounter Summary ---
[facility] [place] [address] Care Team Providers Care Regulatory Affairs Portfolio Leader Name Role Phone Paola Finney DO Primary Care Pro vider Unavailable Community, Pcp Primary Care Provider Unavailabl e Encounter Details Date Type Department Care Team Description 07/30/2018 Business Doc Medical Records [address] [place] [id number] Abstract, Provider Social History Tobacco Use Types [...] on filedocumented in this encounter Care Teams Regulatory Affairs Portfolio Leader Relationship Specialty Start Date End Date Paola Finney DO PCP - General Internal Medicine 06/29/15 10/24/21 [facility], Pcp PCP - General Internal Medicine 10/25/21 documented as of this encounter
--- OUTSIDE RECORDS SUMMARY | 2024-07-15 10:19 | XMS_ITS | Encounter Summary ---
[facility] Address [facility] [place] [address] Care Team Providers Care Director Of Mobile Marketing Name Role Phone Paola Finney DO Primary Care Pro vider Unavailable Community, Pcp Primary Care Provider Unavailabl e Encounter Details Date Type Department Care Team Description 05/14/2018 Hospital Medical Records [address] [place] [address] Kadeem Moreno MD Social History Tobacco Use [...] on filedocumented in this encounter Care Teams Director Of Mobile Marketing Relationship Specialty Start Date End Date Paola Finney DO PCP - General Internal Medicine 06/29/15 10/24/21 [facility], Pcp PCP - General Internal Medicine 10/25/21 documented as of this encounter
== END 2024-07-15 10:52 | disposition home or self-care (01) ==
LOC: HO.HMCC 09:54
PROVIDERS: PCP Internal Medicine; Visit Provider Internal Medicine
DX: K76.89 Other specified diseases of liver (principal); E78.5 Hyperlipidemia, unspecified; E55.9 Vitamin D deficiency, unspecified

== ENCOUNTER → 2024-07-15 09:53 | Outpatient (BNVA) | payer MEDICARE, MEDICAID, SELFPAY | PROVIDERS: PCP Internal Medicine; Visit Provider Internal Medicine | DX: K76.89 Other specified diseases of liver (principal); E78.5 Hyperlipidemia, unspecified; E55.9 Vitamin D deficiency, unspecified | CPT/HCPCS: 99212 ==

== ENCOUNTER 2024-08-03 13:14 | Outpatient (AMB) | payer MEDICARE, MEDICAID, SELFPAY ==
--- NOTE | 2024-08-03 13:16 | A.OFFVIS_ITS ---
Vital Signs 08/03/24 13:26 Height 5 ft 5 in Weight 170 lb BMI 28.3 BP 114/72 Blood Pressure Location Rt brachial Position Sitting Pulse 78 Pulse Source Pulse Oximeter Pulse Oximetry (%) 96 Oxygen Delivery Method Room Air Intake Visit Reasons: Colonoscopy screening Intake Note: NEW PATIENT for colo screening. Recall per 2018 via [facility]. CC; Pt denies any GI sx or concerns. Chronic hx of GERD reported and only takes PPI PRN without difficulty. Pt does report concern regarding negative reaction to a medication she received at her last procedure but cannot recall which medication it was. Pt reports severe abd pain, N/V with that med. Tanning Salon Attendant Required: No Accompanied by: Self / Same As Patient Allergies codeine Allergy (Intermediate, Verified 08/03/24 13:20) Headache HPI HPI Colonoscopy screening: Details: 73 year old? female with past medical history of rotator cuff injury, thyroid nodule, hyperlipidemia, history of H pylori, GERD is here today for pre colonoscopy screening.? Patient was sent to us by her PCP.? Last colonoscopy with [facility] in 2018.? Patient reports that she is moving her bowels well without any issues. Reports occasional epigastric pain and acid reflux postp randially. She takes PPI p.r.n..? Denies any personal or family history of gastrointestinal disease or CRC.? Denies history of difficulty with sedation or anesthesia in the past.? However patient reports that 1 episode of post anesthesia nausea and vomiting, however patient did fine with last colonoscopy. Negative for history of sleep apnea.? Denies any history of cardiac, renal, pulmonary, or hepatic disease.?? No history of infectious? diseases like hepatitis A, B, C, HIV or tuberculosis.? Patient is not on any anticoagulation [facility] Medical History Tick bite Right carpal tunnel syndrome Food allergic skin reaction Thoracic spine pain Carpal tunnel syndrome Abnormal skin growth Vitamin D deficiency Multinodular thyroid Thyroid nodule Hyperlipidemia Surgical History Hx of biopsy Hx of mammogram Hx of shoulder surgery Hx of cholecystectomy Hx of appendectomy H/O colonoscopy Family History Father No problems noted. Mother No problems noted. 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 Cognitive needs: No Hearing needs: No Vision needs: Yes Review of Systems Const Denies weight gain and Denies weight loss ENT Reports no additional complaints, Denies dysphagia and Denies odynophagia Card Reports no additional complaints Resp Reports no additional complaints GI Denies abdominal pain, Denies belching, Denies melena, Reports bloating, Denies change in bowel habits, Denies dysphagia, Denies excessive flatus, Denies dyspepsia, Reports heartburn, Denies diarrhea, Denies loose stools, Denies nausea, Denies odynophagia and Denies vomiting Reports no additional complaints Musc Reports no additional complaints Neuro Reports no additional complaints Psych Reports no additional complaints Endo Reports no additional complaints Physical Exam Vital Signs: Last Vital Signs Pulse 78 08/03/24 13:26 BP 114/72 08/03/24 13:26 Pulse Ox 96 08/03/24 13:26 Oxygen Delivery Method Room Air 08/03/24 13:26 BMI result Body Mass Index 28.3 Const General: healthy appearing, no acute distress and well developed Nutritional Appearance: well nourished Orientation/consciousness: patient oriented x3 Resp Effort & Inspection: normal respiratory effort, able to speak in complete sentences, no tracheal deviation and symmetric chest movement Auscultation: clear to auscultation bilaterally Cardio Rate: regular rate GI Inspection: Yes normal to inspection and No distended Palpation (GI): Soft to palpation, not firm, nontender and No hepatosplenomegaly present Auscultation: normal bowel sounds General: Yes no CVA tenderness Back/Spine/Pelvis Back: no CVA tenderness Skin General skin exam: elasticity normal, turgor normal and dry skin Neuro General: patient oriented x3 Psych Appearance: grossly normal Mental Status: mental status grossly normal Assessment & Plan Assessment & Plan (1) H/O colonoscopy: Code(s): Z98.890 - Other specified postprocedural states Category: Surgical (2) Screen for colon cancer: Code(s): Z12.11 - Encounter for screening for malignant neoplasm of colon (3) Benign liver cyst: Code(s): K76.89 - Other specified diseases of liver Category: Medical Plan Patient denies any cardiac or respiratory symptoms.? Reports occasional acid reflux takes PPI as needed. History of H pylori. Patient will be sent for upper endoscopy to rule out duodenitis, gastritis, esophagitis, Vaguhn's, H pylori. Denies any issues with anesthesia during last colonoscopy in 2018.? Denies any history of sleep apnea.? No history infectious diseases in the past or present.? Not on any anticoagulation therapy.? No family or personal history of colon cancer or polyps.? Patient denies melena, hematochezia, unintentional weight loss or ribbon like stools.? Discussed at length the pre-procedure,? prep, diet & medications as well as what to expect prior, during and after the procedure.?? Stressed the importance of good bowel prep.? Recommended the use of Vaseline or Calmoseptine OTC & baby wipes with bowel movements to promote comfort.? ?Patient verbalizes understanding and agrees to plan of care.? She was given the opportunity to ask questions and all questions answered.? We will see her after the procedure.? Medications: New bisacodyl (Dulcolax (bisacodyl)) 10 mg (2 x 5 mg) PO BEDTIME 180 tabs 4RF polyethylene glycol 3350 (Miralax) As directed by gastroenterology department at [facility] 238 grams PO ONCE 238 grams 0RF Z12.11 - Encounter for screening for malignant neop lasm of colon Coding Level of Care Code New Pt Level 3 (76823) Diagnoses H/O colonoscopy Z98.890 Screen for colon cancer Z12.11 Benign liver cyst K76.89 Time Spent (min) 40 Comment 30 minutes spent with patient and additional 10 minutes spent reviewing her records
[2024-08-03 13:26] VITALS: BP 114/72; PULSE 78; O2SAT 96; BMI 28.3
--- OUTSIDE RECORDS SUMMARY | 2024-08-03 13:27 | XMS_ITS | Clinical Summary ---
Author Organization [employer] [facility] Address [address] [place] [address] Care Team Providers Care Senior Account Executive Name Role Phone Teressa Stoner MD Primary Care Provider [phone] Surgical History Surgery Date Site/Laterality Comments APPENDECTOMY [...] History Relation Name Comments Diabetes Brother age 52-[place] Heart failure Father Kidney stones Heart attack [...] Recently Relevant to Health Maintenance Care Teams Senior Account Executive Relationship Specialty Start Date End Date Teressa Stoner MD [address] [place] [address] PCP - General Internal Medicine 03/29/24
== END 2024-08-03 13:53 | disposition home or self-care (01) ==
LOC: HO.HGI 13:15
PROVIDERS: PCP Internal Medicine; Visit Provider Nurse Practitioner Family
DX: Z12.11 Encounter for screening for malignant neoplasm of colon (principal); K76.89 Other specified diseases of liver; Z98.890 Other specified postprocedural states
CPT/HCPCS: 99024

== ENCOUNTER → 2024-08-03 13:14 | Outpatient (BNVA) | payer MEDICARE, MEDICAID, SELFPAY | PROVIDERS: PCP Internal Medicine; Visit Provider Nurse Practitioner Family | DX: Z01.818 Encounter for other preprocedural examination (principal); K21.9 Gastro-esophageal reflux disease without esophagitis; K76.89 Other specified diseases of liver; Z98.890 Other specified postprocedural states | CPT/HCPCS: 99212 ==

== ENCOUNTER 2024-08-29 11:55 | Outpatient (AMB) | payer MEDICARE, MEDICAID, SELFPAY ==
[2024-08-29 12:44] VITALS: BP 122/76; PULSE 83; RESP 18; TEMP 36.6; O2SAT 95; BMI 28.6
--- NOTE | 2024-08-29 12:44 | A.OFFPC_ITS ---
Vital Signs 08/29/24 12:44 Height 5 ft 5 in Weight 172 lb BMI 28.6 BP 122/76 Blood Pressure Location Lt brachial Position Sitting Respiration 18 Pulse 83 Pulse Source Pulse Oximeter Temp 97.8 F Temp Source Oral Pulse Oximetry (%) 95 Oxygen Delivery Method Room Air Intake Visit Reasons: sinus pain Intake Note: Pt is here today for a sick visit. Pt c/o sinus pain and pressure yellow mucus. Allergies codeine Allergy (Intermediate, Verified 08/29/24 12:55) Headache Medication List - Last Reconciled 08/29/24 by Teressa Stoner MD ascorbate calcium (vitamin C) 500 mg PO DAILY bisacodyl (Dulcolax (bisacodyl)) 10 mg (2 x 5 mg) PO BEDTIME calcium carb-D3-mag ox-zinc ox 333 mg-133 unit -133 mg-5 mg (Eric Mag Zinc Plus D3) tabs PO calcium citrate 500 mg (2 x 250 mg calcium) PO DAILY 30 days cholecalciferol (vitamin D3) 50 mcg PO DAILY coenzyme Q10 (CoQ-10) 100 mg PO DAILY epinephrine (EpiPen 2-Chepe) 0.3 mg (0.3 mL) IM Q10M PRN magnesium 250 mg PO DAILY omeprazole 40 mg PO DAILY PRN polyethylene glycol 3350 (Miralax) 238 grams PO ONCE scopolamine base 1 patch transdermal Q3D PRN Tobacco use date assessed: 08/29/24 Fall risk assessment: No Falls in past year Last assessed Fall Risk: 08/29/24 Dental Screening Dental Screen Date: 08/29/24 Did you have a dental visit in the last 12 months?: Yes Did you have a dental problem in the last 6 months where you did not have access to dental care?: No Was dental information given to patient?: Patient has dentist HPI sinus pain 2 HPI Details Pt c/o sinus pressure, postnasal drip, green discharge, facial pain, low-grade fever body aches intermittent cough for 2 weeks. PFSH Medical History Tick bite Right carpal tunnel syndrome Food allergic skin reaction Thoracic spine pain Carpal tunnel syndrome Abnormal skin growth Vitamin D deficiency Multinodular thyroid Thyroid nodule Hyperlipidemia Surgical History Hx of biopsy Hx of mammogram Hx of shoulder surgery Hx of cholecystectomy Hx of appendectomy H/O colonoscopy Family History Father No problems noted. Mother No problems noted. 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 Alcides Cervantes, Arline Giraldo, Audie Broderick and colleagues, with an educational palomo from [employer]. Review of Systems Const All systems reviewed & are unremarkable except as noted in HPI and below Eyes Reports no additional complaints ENT Reports no additional complaints Card Reports no additional complaints Resp Reports no additional complaints GI Reports no additional complaints Reports no additional complaints Physical exam (Primary Care) Vital Signs: Last Vital Signs Temp 97.8 F 08/29/24 12:44 Pulse 83 08/29/24 12:44 Resp 18 08/29/24 12:44 BP 122/76 08/29/24 12:44 Pulse Ox 95 08/29/24 12:44 Oxygen Delivery Method Room Air 08/29/24 12:44 BMI result Body Mass Index 28.6 Tobacco/Smoking Status: Tobacco use Status Tobacco use date assessed 08/29/24 08/29/24 12:55 Patient Tobacco Use Status Never used Tobacco 08/29/24 12:44 e-Cigarette/Vaping Use Never Used 08/29/24 12:44 Thrive Assessment: Date of Thrive Assessment Date Thrive assessed 06/15/24 08/29/24 12:44 Const General: no acute distress HENMT Head: Yes normal to inspection Ears: TM's normal bilaterally Face and sinus: Yes sinus tenderness Throat: Yes postnasal drainage Eyes General: appearance normal, both eyes and all related structures Neck Neck: Yes no lymphadenopathy and Yes supple Resp Effort & Inspection: normal respiratory effort Auscultation: clear to auscultation bilaterally Cardio Rhythm: regular rhythm Heart sounds: S1 normal heart sound present and S2 normal heart sound present Coding Level of Care Code Est Pt Level 3 (47834) Diagnoses Sinusitis J32.9 Assessment & Plan Assessment & Plan (1) Sinusitis: Code(s): J32.9 - Chronic sinusitis, unspecified Category: Medical Plan: Z-Chepe as prescribed supportive care discussed with the patient. She was advised to continue Flonase and Claritin for seasonal allergy Medications: New loratadine (Claritin) 10 mg PO DAILY 90 tabs 0RF azithromycin For 250 mg dose pack: take 500 mg today (day 1), then 250 mg for 4 days (days 2-5) PO 6 tabs 0RF fluticasone propionate 50 mcg/actuation (Flonase Allergy Relief) administer into each nostril 1 spray intranasal DAILY 16 grams 0RF
--- OUTSIDE RECORDS SUMMARY | 2024-08-29 13:44 | XMS_ITS | Clinical Summary ---
Author Organization [employer] [facility] Address [address] [place] [address] Care Team Providers Care Gas Jockey Name Role Phone Teressa Stoner MD Primary Care Provider [phone] Surgical History Surgery Date Site/Laterality Comments APPENDECTOMY PROCEDURE: HISTORICAL APPENDECTOMY; COMMENT: 1972 BLADDER SURGERY 03/2005 PROCEDURE: HISTORICAL BLADDER SURGERY; COMMENT: Cystocele repair, Bladder sling CHOLECYSTECTOMY 2000 PROCEDURE: HISTORICAL CHOLECYSTECTOMY COLONOSCOPY 02/09/2017 PROCEDURE: HISTORICAL COLONOSCOPY; COMMENT: adenoma; repeat in 5 yrs UPPER GASTROINTESTINAL ENDOSCOPY 05/14/2018 PROCEDURE: [place] UPPER GI ENDOSCOPY PERFORMED; COMMENT: normal. FLEXIBLE [...] History Relation Name Comments Diabetes Brother age 52-[place] Heart failure Father Kidney stones Heart attack [...] Recently Relevant to Health Maintenance Care Teams Gas Jockey Relationship Specialty Start Date End Date Teressa Stoner MD [address] [place] [address] PCP - General Internal Medicine 03/29/24
== END 2024-08-29 13:20 | disposition home or self-care (01) ==
LOC: HO.HMCC 11:55
PROVIDERS: PCP Internal Medicine; Visit Provider Internal Medicine
DX: J32.9 Chronic sinusitis, unspecified (principal)

== ENCOUNTER → 2024-08-29 11:55 | Outpatient (BNVA) | payer MEDICARE, MEDICAID, SELFPAY | PROVIDERS: PCP Internal Medicine; Visit Provider Internal Medicine | DX: J32.9 Chronic sinusitis, unspecified (principal) | CPT/HCPCS: 99212 ==

== ENCOUNTER 2024-12-13 09:35 | Outpatient (AMB) | payer MEDICARE, MEDICAID, SELFPAY ==
--- NOTE | 2024-12-13 09:38 | MHC.OFFVIS ---
Vital Signs 12/13/24 09:52 Height 5 ft 5 in Weight 170 lb BMI 28.3 Handedness Right Intake Visit Reasons: OV: left hand pain s/p left CTR 05/31/24 Intake Note: Dilcia is a 74 year old right hand dominant female who presents today in office for a follow up of her left hand/wrist status post left carpal tunnel release DOS: 05/31/24 w/ Dr Roseline Santamaria. Patient expresses she is having continued pain in the left hand that started shortly after her left carpal tunnel release surgery. She says after her procedure she did not used her left hand much but now with more usage shes noticed and feels sharp pain over her left CTR scar. She says this happens at random and some days she is woken up at night due to her pain. Occasioanlly it radiates into the left thumb. Allergies bee pollen (bees) Allergy (Intermediate, Verified 12/13/24 09:51) Anaphylaxis codeine Allergy (Intermediate, Verified 12/13/24 09:51) Headache HPI HPI OV: left hand pain s/p left CTR 05/31/24: Details: Dilcia is a 74 year old right hand dominant woman who returns with complains of pain in her left thumb, onset ~2 months ago. She complains of a sharp pain in her left thumb, extending from the thenar mass into the carpal tunnel, over the volar aspect of the basal joint, onset ~2 months ago. She denies any known injuries. She is S/P left carpal tunnel release, DOS: 05/31/24. She says she still has some numbness in her left thumb, improved following surgery. She says she has normal sensation in her other digits. She has a Hx of an aortic aneurysm. She denies any blood thinners. [facility] Medical History Tick bite Right carpal tunnel syndrome Food allergic skin reaction Thoracic spine pain Carpal tunnel syndrome Abnormal skin growth Vitamin D deficiency Multinodular thyroid Thyroid nodule Hyperlipidemia Surgical History Hx of biopsy Hx of mammogram Hx of shoulder surgery Hx of cholecystectomy Hx of appendectomy H/O colonoscopy Family History Father No problems noted. Mother No problems noted. 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 normal sensation to the index & middle fingers. Normal sensation ulnar nerve distribution No thenar or intrinsic wasting Weak APB muscle belly firing and good finger cross Vascular: Cap refill brisk ROM: She can make a fist and extend all of her digits. No locking or catching. Tender over the volar aspect of the basal joint No tenderness over the dorsal aspect of the basal joint or CMC joint Tender over the volar aspect of the CMC joint, in line with the flexor tendons Pain reproducible with resisted thumb flexion, radiating down the thumb and thenar mass in line with the FPL tendon and into the carpal tunnel Nerve Conduction Study: Right-side only IMPRESSION: 1. This is an abnormal study. 2. 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 3. There is no electrodiagnostic evidence for median neuropathy, brachial plexopathy, or cervical radiculopathy. Faith Emmanuel MD, PRANEETH 06/25/23 Left-side only IMPRESSION: 1. Left [id number] median neuropathy across carpal tunnel. 2. Mild left ulnar neuropathy across cubital tunnel. Mayur Aljeo MD 05/01/2022 Assessment & Plan Assessment & Plan (1) Pain of left thumb: Code(s): M79.645 - Pain in left finger(s) Category: Medical (2) Tendinitis of left hand: Code(s): M77.8 - Other enthesopathies, not elsewhere classified Category: Medical Plan Assessment & Plan: 1. Left thumb pain Possible FPL tendinitis I educated her about this condition I discussed non-operative treatment options I recommend OT and she is in agreement I ordered OT to work on stretching, strengthening, & normalizing function I discussed activity modification, she should use her hand for normal daily activities. She should perform ROM exercises at home She will follow up in 6-8 weeks to see how she is doing. She may benefit from an injection either to the a1 fady proximally or perhaps into the carpal tunnel area if her symptoms do not improve 2. Left Carpal tunnel syndrome, S/P release DOS: 05/31/24 Pre-operatively with dense numbness Now with decreased sensation in the thumb, significantly improved from prior, and normal sensation in the index & middle fingers. 3. Left Cubital tunnel syndrome, mild Asymptomatic 4. Right cubital tunnel syndrome No complaints today 5. Left hand mass ~1cm proximal to the distal phillips crease in line with a small finger Measuring ~5mm in diameter This could be a Dupuytrens nodule but is more proximal than normal. No intervention warranted at this time. She understands to follow up if this increases in size or pain Scribed for Roseline Santamaria MD by Hilario Sorensen, rn medical inpatient services, on 12/13/24 at 10:25 AM, EST. Orders: Orders OT Evaluation and Treatment Today M77.8 - Other enthesopathies, not elsewhere classified, M79.645 - Pain in left finger(s) Coding Level of Care Code Est Pt Level 3 (06964) Diagnoses Pain of left thumb M79.645 Tendinitis of left hand M77.8
[2024-12-13 09:52] VITALS: BMI 28.3
--- OUTSIDE RECORDS SUMMARY | 2024-12-13 11:21 | XMS_ITS | Patient Health Record ---
Author Organization [facility] Address [address] [place] [id number] Care Team Providers Care Photograph Editor Name Role Phone Alcides Allan Unavailable [phone] Reason For Referral No Information Plan Of Treatment No Information
--- OUTSIDE RECORDS SUMMARY | 2024-12-13 11:21 | XMS_ITS | Clinical Summary ---
Author Organization [employer] [facility] Address [address] [place] [address] Care Team Providers Care Histology Specialist Name Role Phone Teressa Stoner MD Primary Care Provider [phone] Surgical History Surgery Date Site/Laterality Comments APPENDECTOMY PROCEDURE: HISTORICAL APPENDECTOMY; COMMENT: 1972 BLADDER SURGERY 03/2005 PROCEDURE: HISTORICAL BLADDER SURGERY; COMMENT: Cystocele repair, Bladder sling CHOLECYSTECTOMY 2000 PROCEDURE: HISTORICAL CHOLECYSTECTOMY COLONOSCOPY 02/09/2017 PROCEDURE: HISTORICAL COLONOSCOPY; COMMENT: adenoma; repeat in 5 yrs UPPER GASTROINTESTINAL ENDOSCOPY 05/14/2018 PROCEDURE: [place] UPPER GI ENDOSCOPY PERFORMED; COMMENT: normal. FLEXIBLE [...] History Relation Name Comments Diabetes Brother age 52-[place] Heart failure Father Kidney stones Heart attack [...] 07/24/2017 Colorectal Cancer Screening: Colonoscopy 03/17/2023 02/09/2017 Falls Risk Assessment 03/17/2023 Hepatitis C Screening 03/17/2023 Osteoporosis Screening (Bone Density Screening) 03/17/2023 Social Influencers of Health Screening 03/17/2023 Depression Screening 03/23/2024 COVID-19 Vaccine (1 - 2023-2 5 season) 2024 Influenza Vaccine (#1) 2024 DTaP,Tdap,and Td Vaccines (2 - Td [...] reviewed with CAD and compared to previous. The breasts are composed of fatty and fibroglandular tissue. No suspicious mass, architectural distortion or suspicious calcifications [...] Recently Relevant to Health Maintenance Care Teams Histology Specialist Relationship Specialty Start Date End Date Teressa Stoner MD [address] [place] [address] PCP - General Internal Medicine 03/29/24
== END 2024-12-13 10:37 | disposition home or self-care (01) ==
PROVIDERS: PCP Internal Medicine; Visit Provider Orthopaedic Surgery
DX: M79.645 Pain in left finger(s) (principal); M77.8 Other enthesopathies, not elsewhere classified
CPT/HCPCS: 99213

== ENCOUNTER → 2024-12-13 09:35 | Outpatient (BNVA) | payer MEDICARE, MEDICAID, SELFPAY | PROVIDERS: PCP Internal Medicine; Visit Provider Orthopaedic Surgery | DX: M79.645 Pain in left finger(s) (principal); M77.8 Other enthesopathies, not elsewhere classified | CPT/HCPCS: 99212 ==

== ENCOUNTER 2025-01-09 09:26 | Outpatient (REF) | payer MEDICARE, MEDICAID, SELFPAY ==
[2025-01-09 10:25] LABS: MANUAL DIFF FLAG NO
--- OUTSIDE RECORDS SUMMARY | 2025-01-09 10:32 | XMS_ITS | Clinical Summary ---
Author Organization [employer] [facility] Address [address] [place] [address] Care Team Providers Care Energy Conservation Specialist Name Role Phone Teressa Stoner MD Primary Care Provider [phone] Surgical History Surgery Date Site/Laterality Comments APPENDECTOMY PROCEDURE: HISTORICAL APPENDECTOMY; COMMENT: 1972 BLADDER SURGERY 03/2005 PROCEDURE: HISTORICAL BLADDER SURGERY; COMMENT: Cystocele repair, Bladder sling CHOLECYSTECTOMY 2000 PROCEDURE: HISTORICAL CHOLECYSTECTOMY COLONOSCOPY 02/09/2017 PROCEDURE: HISTORICAL COLONOSCOPY; COMMENT: adenoma; repeat in 5 yrs UPPER GASTROINTESTINAL ENDOSCOPY 05/14/2018 PROCEDURE: [place] UPPER GI ENDOSCOPY PERFORMED; COMMENT: normal. FLEXIBLE [...] History Relation Name Comments Diabetes Brother age 52-[place] Heart failure Father Kidney stones Heart attack [...] Years (1 of 1 - PCV) 2002 RSV Immunization Adult Patients (1 - Risk 50-74 years 1-dose series) 2002 Zoster Vaccines (1 of 2) 2002 Hepatitis B Vaccines (1 of 3 - Risk 3-dose series) 2012 Breast Cancer Screening 07/29/2020 07/30/19 19, 07/24/2017 Colorectal Cancer Screening: Colonoscopy 02/09/2022 02/09/2017 Falls Risk Assessment 03/17/2023 Hepatitis C [...] Recently Relevant to Health Maintenance Care Teams Energy Conservation Specialist Relationship Specialty Start Date End Date Teressa Stoner MD [address] [place] [address] PCP - General Internal Medicine 03/29/24
[2025-01-09 10:44] LABS: Hematocrit 43.4 % (37.0-47.0); Hemoglobin 14.7 g/dl (12.0-16.0); Imm Gran Abs Auto 0.01 X10*3/uL (0.00-0.03); Imm Gran Pct Auto 0.1 % (0.0-0.4); Lymphocytes Absolute Auto 2.7 X10*3/uL (1.2-4.9); Mean Corpuscular HGB Conc 33.9 g/dl (31.0-35.0); Mean Corpuscular Hemoglobin 31.6 pg (27.0-33.0); Mean Corpuscular Volume 93.3 fL (80.0-98.0); NRBC Abs Auto 0.000 X10*3/uL (0.0-0.012); NRBC Pct Auto 0.0 /100WBC (0.0-0.2); Platelet Count 258 X10*3/uL (160-400); Red Blood Count 4.65 X10*6/uL (4.20-5.50); White Blood Count 6.9 X10*3/uL (4.8-10.8)
[2025-01-09 11:38] LABS: Alanine Aminotransferase 20 U/L (0-31); Albumin Level 4.3 g/dL (3.5-5.0); Alkaline Phosphatase 91 U/L (39-117); Anion Gap 13 (12-20); Aspartate Amino Transferase 31 U/L (5-31); Blood Urea Nitrogen 14 mg/dL (9-16); Calcium 8.9 mg/dL (8.4-10.2); Carbon Dioxide 25 mmol/L (22-29); Chloride 108 mmol/L (96-108); Cholesterol 215 mg/dL (<200); Estimated Glomerular Filt Rate > 60; HDL Cholesterol 48 mg/dL (>40); Potassium 4.2 mmol/L (3.3-5.1); Sodium 142 mmol/L (135-145); Total Protein 7.3 g/dL (6.5-8.0); Triglycerides 130 mg/dL (<150)
[2025-01-09 11:46] LABS: Folate 11.2 ng/mL (> or = 4.0); Vitamin B12 938 pg/mL (200-900)
== END 2025-01-09 09:27 | disposition home or self-care (01) ==
LOC: HO.HMGCLDS 09:26
PROVIDERS: PCP Internal Medicine; Visit Provider Internal Medicine
DX: K76.89 Other specified diseases of liver (principal); R73.9 Hyperglycemia, unspecified; E55.9 Vitamin D deficiency, unspecified; E78.5 Hyperlipidemia, unspecified; Z13.29 Encounter for screening for other suspected endocrine disorder; Z13.6 Encounter for screening for cardiovascular disorders
CPT/HCPCS: 36415; 80053; 80061; 82306; 82607; 82746; 84443; 85025

== ENCOUNTER 2025-01-10 11:18 | Outpatient (AMB) | payer MEDICARE, MEDICAID, SELFPAY ==
[2025-01-10 11:24] VITALS: BP 104/66; PULSE 72; RESP 18; TEMP 36.4; O2SAT 96; BMI 28.8
--- NOTE | 2025-01-10 11:24 | A.OFFPC_ITS ---
Vital Signs 01/10/25 11:24 Height 5 ft 5 in Weight 173 lb BMI 28.8 BP 104/66 Blood Pressure Location Lt brachial Position Sitting Respiration 18 Pulse 72 Pulse Source Pulse Oximeter Temp 97.6 F Temp Source Oral Pulse Oximetry (%) 96 Oxygen Delivery Method Room Air Intake Visit Reasons: Annual PE Intake Note: Pt is here today for PE. Pt states that she had carpal tunnel surgery. Allergies bee pollen (bees) Allergy (Intermediate, Verified 01/10/25 11:25) Anaphylaxis codeine Allergy (Intermediate, Verified 01/10/25 11:25) Headache Medication List - Last Reconciled 01/10/25 by Teressa Stoner MD ascorbate calcium (vitamin C) 500 mg PO DAILY bisacodyl (Dulcolax (bisacodyl)) 10 mg (2 x 5 mg) PO BEDTIME calcium carb-D3-mag ox-zinc ox 333 mg-133 unit -133 mg-5 mg (Eric Mag Zinc Plus D3) tabs PO calcium citrate 500 mg (2 x 250 mg calcium) PO DAILY 30 days cholecalciferol (vitamin D3) 50 mcg PO DAILY clotrimazole-betamethasone 1-0.05 % 1 appl topical BID 2 weeks coenzyme Q10 (CoQ-10) 100 mg PO DAILY epinephrine (EpiPen 2-Chepe) 0.3 mg (0.3 mL) IM Q10M PRN fluticasone propionate 50 mcg/actuation (Flonase Allergy Relief) 1 spray intranasal DAILY loratadine 10 mg PO DAILY magnesium 250 mg PO DAILY omeprazole 40 mg PO DAILY polyethylene glycol 3350 (Miralax) 238 grams PO ONCE scopolamine base 1 patch transdermal Q3D PRN Tobacco use date assessed: 01/10/25 Fall risk assessment: No Falls in past year Last assessed Fall Risk: 01/10/25 Dental Screening Dental Screen Date: 08/29/24 HPI Annual PE HPI Details Pt presents for PE. PFSH Medical History (Updated 01/10/25 @ 15:05 by Teressa Stoner MD) Abdominal pain Tick bite Right carpal tunnel syndrome Food allergic skin reaction Thoracic spine pain Carpal tunnel syndrome Abnormal skin growth Vitamin D deficiency Multinodular thyroid Hyperlipidemia Surgical History (Updated 01/10/25 @ 12:04 by Teressa Stoner MD) History of carpal tunnel surgery Hx of biopsy Hx of mammogram Hx of shoulder surgery Hx of cholecystectomy Hx of appendectomy H/O colonoscopy Family History Father No problems noted. Mother No problems noted. 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 1. Little interest or pleasure in doing things: not at all 2. Feeling down, depressed, or hopeless: not at all 3. Trouble falling or staying asleep, or sleeping too much: not at all 4. Feeling tired or having little energy: not at all 5. Poor appetite or overeating: not at all 6. Feeling bad about yourself - or that you are a failure or have let yourself or your family down: not at all 7. Trouble concentrating on things, such as reading the newspaper or watching television: not at all 8. Moving or speaking so slowly that other people could have noticed. Or the opposite - being so fidgety or restless that you have been moving around a lot more than usual: not at all 9. Thoughts that you would be better off or of hurting yourself in some way: not at all Total score: 0 Depression Screening Interpretation: Negative Depression Screening Done: Yes Source: Developed by Drs. Alcides Cervantes, Arline Giraldo, Audie Broderick and colleagues, with an educational palomo from [employer]. Thrive Questionnaire Date Thrive assessed: 01/10/25 I am a: Patient What is your living situation today?: I have a steady place to live Within the past 12 months, did the food you bought not last and you didn't have the money to get more?: Often true Within the past 12 months, did you worry whether your food would run out before you got money to buy more?: I choose not to answer this question Do you have trouble paying for medicines?: No Do you have trouble getting transportation to medical appointments?: No Do you have trouble paying your heating and electricity bill?: No Do you have trouble taking care of your child, family member or friend?: No Do you have trouble with day-to-day activities such as bathing, preparing meals, shopping, managing finances, etc.?: No Are you currently unemployed and looking for a job?: No Are you interested in more education?: No Please select the resources that you would like help with: None THRIVE Score: 1 PIETRO-7 AMB Questionnaire PIETRO-7 Date PIETRO - 7 assessed: 06/15/24 Feeling nervous, anxious, or on edge: 0 = Not at all Not being able to stop or control worryin = Not at all Worrying too much about different things: 0 = Not at all Trouble relaxin = Not at all Being so restless that it is hard to sit still: 0 = Not at all Becoming easily annoyed or irritable: 0 = Not at all Feeling afraid as if something awful might happen: 0 = Not at all Total PIETRO-7 score (0-4 normal; 5-9 mild; 10-14 moderate; 15-21 severe): 0 Source: Developed by Drs. Alcdies Cervantes, Arline Giraldo, Audie Broderick and colleagues, with an educational palomo from [employer]. Review of Systems Const All systems reviewed & are unremarkable except as noted in HPI and below Eyes Reports no additional complaints ENT Reports no additional complaints Card Reports no additional complaints Resp Reports no additional complaints GI Reports no additional complaints Reports no additional complaints Physical exam (Primary Care) Vital Signs: Last Vital Signs Temp 97.6 F 01/10/25 11:24 Pulse 72 01/10/25 11:24 Resp 18 01/10/25 11:24 BP 104/66 01/10/25 11:24 Pulse Ox 96 01/10/25 11:24 Oxygen Delivery Method Room Air 01/10/25 11:24 BMI result Body Mass Index 28.8 Tobacco/Smoking Status: Tobacco use Status Tobacco use date assessed 01/10/25 01/10/25 11:28 Patient Tobacco Use Status Never used Tobacco 01/10/25 11:28 e-Cigarette/Vaping Use Never Used 01/10/25 11:28 PHQ-9: PHQ-9 Score PHQ-9: Total score 0 01/10/25 12:00 Depression Screening Interpretation: Negative Thrive Assessment: Date of Thrive Assessment Date Thrive assessed 01/10/25 01/10/25 11:28 Const General: no acute distress HENMT Head: Yes normal to inspection Ears: hearing grossly normal bilaterally Mouth: Normal oral and palatal mucosa present Throat: Yes posterior oropharynx normal Eyes General: appearance normal, both eyes and all related structures Neck Neck: Yes no lymphadenopathy and Yes supple Resp Effort & Inspection: normal respiratory effort Auscultation: clear to auscultation bilaterally Cardio Rhythm: regular rhythm Heart sounds: S1 normal heart sound present and S2 normal heart sound present GI Inspection: Yes normal to inspection Palpation (GI): Soft to palpation Percussion: Yes normal to percussion Auscultation: normal bowel sounds Coding Level of Care Code Est Pt Prev Care >65y(12384) Diagnoses Abdominal pain R10.9 Hyperlipidemia E78.5 Multinodular thyroid E04.2 Hyperglycemia R73.9 Annual physical exam Z00.00 Assessment & Plan Assessment & Plan (1) Abdominal pain: Code(s): R10.9 - Unspecified abdominal pain Category: Medical Plan: For chronic recurrent epigastric abdominal pain check H pylori. (2) Hyperlipidemia: Code(s): E78.5 - Hyperlipidemia, unspecified Category: Medical Plan: Continue statin (3) Multinodular thyroid: Comment: US thyroid multiple nodules 2023, negative bx Follow-up with endocrinology Code(s): E04.2 - Nontoxic multinodular goiter Category: Medical Plan: Follow-up with endocrinology (4) Hyperglycemia: Code(s): R73.9 - Hyperglycemia, unspecified Category: Medical Plan: ADA diet increase exercise weight loss discussed with the patient (5) Annual physical exam: Code(s): Z00.00 - Encounter for general adult medical examination without abnormal findings Category: Medical Plan: Well-balanced diet regular exercise discussed with the patient. She is overdue for colonoscopy will be referred to GI Dr. Crandall. She is up-to-date with the mammogram. Patient will follow-up in 6 months with a fasting labs before Orders: Orders H pylori Ag Stool Today R10.9 - Unspecified abdominal pain Comprehensive Dille. Panel Fast 6 Months E04.2 - Nontoxic multinodular goiter, E78.5 - Hyperlipidemia, unspecified, R73.9 - Hyperglycemia, unspecified Lipid Panel 6 Months E04.2 - Nontoxic multinodular goiter, E78.5 - Hype rlipidemia, unspecified, R73.9 - Hyperglycemia, unspecified Hemoglobin A1c 6 Months E04.2 - Nontoxic multinodular goiter, E78.5 - Hyperlipidemia, unspecified, R73.9 - Hyperglycemia, unspecified Referrals Gastroenterology Referral Z00.00 - Encounter for general adult medical examination without abnormal findings Medications: New clotrimazole-betamethasone 1-0.05 % 1 appl topical BID 45 grams 0RF 2 weeks Discontinued omeprazole Discontinued Reason: Doctor's Order 40 mg PO DAILY 90 caps 3RF
== END 2025-01-10 12:20 | disposition home or self-care (01) ==
LOC: HO.HMCC 11:20
PROVIDERS: PCP Internal Medicine; Visit Provider Internal Medicine
DX: Z00.00 Encounter for general adult medical examination without abnormal findings (principal); R10.9 Unspecified abdominal pain; E78.5 Hyperlipidemia, unspecified; E04.2 Nontoxic multinodular goiter; R73.9 Hyperglycemia, unspecified

== ENCOUNTER → 2025-01-10 11:18 | Outpatient (BNVA) | payer MEDICARE, MEDICAID, SELFPAY | PROVIDERS: PCP Internal Medicine; Visit Provider Internal Medicine | DX: Z00.00 Encounter for general adult medical examination without abnormal findings (principal); R10.9 Unspecified abdominal pain; E78.5 Hyperlipidemia, unspecified; E04.2 Nontoxic multinodular goiter; R73.9 Hyperglycemia, unspecified | CPT/HCPCS: 96127; 99397 ==

== ENCOUNTER 2025-01-18 09:00 | Outpatient (REF) | payer MEDICARE, MEDICAID, SELFPAY ==
--- OUTSIDE RECORDS SUMMARY | 2025-01-18 16:48 | XMS_ITS | Encounter Summary ---
[facility] Address [address] [place] [address] Care Team Providers Care Home Hospice Aide Name Role Phone Paola Finney DO Primary Care Pro vider Unavailable Community, Pcp Primary Care Provider Unavailabl e Encounter Details Date Type Department Care Team Description 08/18/2018 Telecom Billing Analyst Report Medical Records [address] [place] [id number] Rehab., Alexandro Social History Tobacco Use Types [...] on filedocumented in this encounter Care Teams Home Hospice Aide Relationship Specialty Start Date End Date Paola Finney DO PCP - General Internal Medicine 06/29/15 10/24/21 [facility], [facility], Pcp PCP - General Internal Medicine 10/25/21 documented as of this encounter
--- OUTSIDE RECORDS SUMMARY | 2025-01-18 16:48 | XMS_ITS | Encounter Summary ---
[facility] Address [address] [place] [address] Care Team Providers Care Skein Mercerizing Machine Operator Name Role Phone Paola Finney DO Primary Care Pro vider Unavailable Community, Pcp Primary Care Provider Unavailabl e Encounter Details Date Type Department Care Team Description 10/05/2018 [facility] Medical Records [address] [place] [address] Abstract, Provider Social History Tobacco Use Types [...] on filedocumented in this encounter Care Teams Skein Mercerizing Machine Operator Relationship Specialty Start Date End Date Paola Finney DO PCP - General Internal Medicine 06/29/15 10/24/21 [facility], Pcp PCP - General Internal Medicine 10/25/21 documented as of this encounter
--- OUTSIDE RECORDS SUMMARY | 2025-01-18 16:48 | XMS_ITS | Encounter Summary ---
[facility] Address [facility] [place] [address] Care Team Providers Care Income Tax Investigator Name Role Phone Paola Finney DO Primary Care Pro vider Unavailable Community, Pcp Primary Care Provider Unavailabl e Encounter Details Date Type Department Care Team Description 07/30/2018 Business Doc Medical Records [address] [place] [id number] Abstract, Provider Social History Tobacco Use Types [...] on filedocumented in this encounter Care Teams Income Tax Investigator Relationship Specialty Start Date End Date Paola Finney DO PCP - General Internal Medicine 06/29/15 10/24/21 [facility], Pcp PCP - General Internal Medicine 10/25/21 documented as of this encounter
--- OUTSIDE RECORDS SUMMARY | 2025-01-18 16:48 | XMS_ITS | Encounter Summary ---
Author Organization [facility] Address [address] [place] [address] Care Team Providers Care Computer Engineer Name Role Phone Paola Finney DO Primary Care Pro vider Unavailable Community, Pcp Primary Care Provider Unavailabl e Reason for Visit * Reason Onset Date Comments REFERRAL 11/26/2018 General Surgery Encounter Details Date Type Department Care Team Description 11/26/2018 Telephone Medicine/Pediatrics - [address] [address] Paola Finney DO REFERRAL (General Surgery) Social [...] on filedocumented in this encounter Care Teams Computer Engineer Relationship Specialty Start Date End Date Paola Finney DO PCP - General Internal Medicine 06/29/15 10/24/21 [facility], Pcp PCP - General Internal Medicine 10/25/21 documented as of this encounter
--- OUTSIDE RECORDS SUMMARY | 2025-01-18 16:48 | XMS_ITS | Patient Health Record ---
Author Organization [facility] Address [address] [place] [address] Care Team Providers Care Rouge Sifter Name Role Phone Teressa Stoner MD Primary Care Provider Alcides Vanessa [phone] Reason For Referral No Information Plan Of Treatment Next Appt Details Provider Name:Alcides Allan , 02/14/2025 02:00:00 PM, [address], [address], [place], [address], Insurance Providers Payer Name Payer Address Payer Phone Subscriber Number Group Number Insured Name Patient Relationship to Insured Coverage Start Date Coverage End Date [place] [address] [place] [address] [phone] [id number] ORANY JOE Self - patient is the insured MEDICAID OF [facility] [address] [place] [address] [id number] ORZOL, JOE Self - patient is the insured
--- OUTSIDE RECORDS SUMMARY | 2025-01-18 16:48 | XMS_ITS | Encounter Summary ---
Author Organization [facility] Address [address] [place] [address] Care Team Providers Care Computer Repair Instructor Name Role Phone Paola Finney DO Primary Care Pro vider Unavailable Community, Pcp Primary Care Provider Unavailabl e Reason for Visit * Reason Onset Date Comments REFERRAL 08/25/2018 Encounter Details Date Type Department Care Team Description 08/25/2018 Telephone Physiatry - [address] [address] Kory Laguerre PA-C REFERRAL Social History Tobacco [...] filedocumented in this encounter Care Teams Computer Repair Instructor Relationship Specialty Start Date End Date Paola Finney DO PCP - General Internal Medicine 06/29/15 10/24/21 Community, Pcp PCP - General Internal Medicine 10/25/21 documented as of this encounter
--- OUTSIDE RECORDS SUMMARY | 2025-01-18 16:48 | XMS_ITS | Encounter Summary ---
Author Organization [facility] [employer] [facility] Address [address] [place] [address] Care Team Providers Care Barber Stylist Name Role Phone Paola Finney DO Primary Care Pro vider Unavailable Community, Pcp Primary Care Provider Unavailabl e Encounter Details Date Type Department Care Team Description 10/04/2015 Release of Information Medical Records [address] [place] [address] Abstract, Provider Social History Tobacco Use Types [...] on filedocumented in this encounter Care Teams Barber Stylist Relationship Specialty Start Date End Date Paola Finney DO PCP - General Internal Medicine 06/29/15 10/24/21 [facility], Pcp PCP - General Internal Medicine 10/25/21 documented as of this encounter
--- OUTSIDE RECORDS SUMMARY | 2025-01-18 16:48 | XMS_ITS | Clinical Summary ---
Author Organization [facility] Address [address] [place] [address] Care Team Providers Care Business Affairs Manager Name Role Phone Teressa Stoner MD Primary Care Provider [phone] Surgical History Surgery Date Site/Laterality Comments APPENDECTOMY [...] History Relation Name Comments Diabetes Brother age 52-[place] Heart failure Father Kidney stones Heart attack [...] Recently Relevant to Health Maintenance Care Teams Business Affairs Manager Relationship Specialty Start Date End Date Teressa Stoner MD [address] [place] [address] PCP - General Internal Medicine 03/29/24
--- OUTSIDE RECORDS SUMMARY | 2025-01-18 16:48 | XMS_ITS | Encounter Summary ---
[facility] Address [facility] [place] [address] Care Team Providers Care Production Superintendent Hydro Name Role Phone Paola Finney DO Primary Care Pro vider Unavailable Community, Pcp Primary Care Provider Unavailabl e Encounter Details Date Type Department Care Team Description 07/28/2017 Business Doc Medical Records [address] [place] [address] Abstract, Provider Social History Tobacco Use Types [...] on filedocumented in this encounter Care Teams Production Superintendent Hydro Relationship Specialty Start Date End Date Paola Finney DO PCP - General Internal Medicine 06/29/15 10/24/21 [facility], Pcp PCP - General Internal Medicine 10/25/21 documented as of this encounter
--- OUTSIDE RECORDS SUMMARY | 2025-01-18 16:48 | XMS_ITS | Encounter Summary ---
Author Organization [facility] Address [address] [place] [address] Care Team Providers Care Trailer Chief Name Role Phone Paola Finney DO Primary Care Pro vider Unavailable Community, Pcp Primary Care Provider Unavailabl e Reason for Visit * Reason Onset Date Comments Auto Claim Representative Feedback 09/20/2018 neurosurgery Encounter Details Date Type Department Care Team Description 09/20/2018 Telephone Adult Medicine [address] [address] Paola Finney DO Auto Claim Representative Feedback (neurosurgery) Social History Tobacco Use Types [...] on filedocumented in this encounter Care Teams Trailer Chief Relationship Specialty Start Date End Date Paola Finney DO PCP - General Internal Medicine 06/29/15 10/24/21 [facility], Pcp PCP - General Internal Medicine 10/25/21 documented as of this encounter
--- OUTSIDE RECORDS SUMMARY | 2025-01-18 16:48 | XMS_ITS | Clinical Summary ---
Author Organization [facility] Address [address] [place] [address] Care Team Providers Care Beam Dyer Recessed Vat Name Role Phone Community, Pcp Primary Care Provider Unavailabl e Allergies Active Allergy Reactions Severity Noted Date Comments Codeine Swelling/Edema 03/13/2005 Eggs Rash/Dermatitis 09/29/2016 Medications Medication Sig Dispensed Refills Start Date End Date Status fluticasone 50 MCG/ACT nasal spray 2 sprays each nostril twice daily x 1 week then once daily as needed. 16 g 5 09/03/2017 Active ibuprofen (ADVIL,MOTRIN) 800 MG tablet TAKE 1 TABLET BY MOUTH EVERY 8 HOURS NEEDED 90 Tab 4 10/18/2018 Active ondansetron (ZOFRAN) 4 MG tablet Take 1 Tab by mouth every 8 hours as needed for Nausea for up to 7 days. 28 Tab 0 11/04/2018 Active calcium carbonate (TUMS) 500 MG chewable tablet Take 1 Tab by mouth 3 times daily for 3 days. 9 Tab 0 11/05/2018 Active Cholecalciferol (VITAMIN D) 1000 units Tab Take 1 Tab by mouth daily. 0 Active Active Problems Problem Noted Date DISH (diffuse idiopathic skeletal hypero stosis) 11/23/2018 Closed fracture of thoracic vertebra wit h routine healing 11/23/2018 Rectocele 08/20/2018 Osteoarthritis of thoracic spine 019 Umbilical hernia 05/10/2018 Tubular adenoma 05/10/2018 Fatty liver 05/10/2018 Dyslipidemia 09/29/2016 Osteopenia 11/08/2015 Overview: BMD 01/13/13, 09/26/10, 08/31/08 Spinal stenosis 11/08/2015 Osteoarthritis 11/08/2015 Overview: Cervical, & Thoracic Spine, Hips Allergic rhinitis 11/08/2015 GERD (gastroesophageal reflux disease) 0 11/08/2015 Overview: History h pylori kidney stones 03/15/2005 Depression 03/15/2005 Resolved Problems Problem Noted Date Resolved Date Grief 05/10/2018 Immunizations Name Administration Dates Next Due Tdap 07/24/2016 Family History Medical History Relation Name Comments Diabetes Brother age 52-[place] CHF Father Kidney stones [place] Mother in her 70's. di ed from pneumonia [place] Paternal Grandfather [place] Breast Sister dx 63 Palpitations Relation Name Status Comments Brother Father Mother Paternal Grandfather Sister dx 63 Alive Social History Tobacco Use Types Packs/Day Years Used Date Smoking Tobacco: Former Smokeless Tobacco: Never Comments:quit 13 yrs ago Alcohol Use Standard Drinks/Week Comments No 0 (1 standard drink = 0.6 oz pur e alcohol) only special occasions Sex Assigned at Date Recorded Not on file Last Filed Vital Signs Vital Sign Reading Time Taken Comments Blood Pressure 110/70 05/02/2019 3:51 PM EST Pulse 72 05/02/2019 3:51 PM EST Temperature 35.9 C (96.6 F) 05/02/2019 3:51 PM EST Respiratory Rate 16 05/02/2019 3:51 PM EST Oxygen Saturation 98% 05/02/2019 3:51 PM EST Inhaled Oxygen Concentration - - Weight 76 kg (167 lb 8 oz) 05/02/2019 3:51 PM ES T Height 149.9 cm (4' 11 ) 05/02/2019 3:51 PM EST Body Mass Index 33.83 05/02/2019 3:51 PM EST Plan of Treatment Health Maintenance Due Date Last Done Comments Covid-19 Vaccine (#1) 1950 DEPRESSION SCREEN 1964 SHINGLES VACCINE (1 of 2) 2002 BONE DENSITY SCREENING 2017 01/26/2003 PNEUMOCOCCAL VACCINE (1 - PCV) 2017 MAMMOGRAM 07/30/2019 07/29/2018, 05/0 06/2017, 01/04/2015, Additional history exists FALL RISK ASSESSMENT 11/18/2019 11/17/2018 COLON CANCER SCREENING 02/09/2022 02/09/2017, 2000 CHOLESTEROL SCREENING 08/24/2023 08/23/2018 , 04/20/2017, 07/24/2016, Additional history exists BMI CHECK/ADVISE 03/23/2024 05/02/2019, 10/2018, 11/17/2018, Additional history exists INFLUENZA (#1) 2024 DTAP/TDAP/TD (3 - Td or Tdap) 07/24/2026 07/24/2016, 04/06/2015 HEPATITIS C SCREENING Completed 07/24/2016 Care Teams Beam Dyer Recessed Vat Relationship Specialty Start Date End Date Community, Pcp PCP - General Internal Medicine 10/25/21
--- OUTSIDE RECORDS SUMMARY | 2025-01-18 16:48 | XMS_ITS | Encounter Summary ---
Author Organization [facility] Address [address] [place] [address] Care Team Providers Care Recycling Director Name Role Phone Paola Finney DO Primary Care Pro vider Unavailable Community, Pcp Primary Care Provider Unavailabl e Reason for Visit * Reason Onset Date Comments medication problems 07/24/2016 Encounter Details Date Type Department Care Team Description 07/24/2016 Telephone Adult Medicine [address] [address] Paola Finney DO medication problems Social History [...] tabs first Please reply back to p [phone] Prior Auth pool Hannah Tinoco M.A. [facility] Prior Authorizations Ext [id number] * Telephone Encounter - Caitie Mcghee M.A. - 07/24/2016 10:13 AM EDT Acyclovir oint not covered by ins. I called pharmacy non formulary drug, will ask prior auth dept to ask for approval * Telephone Encounter - Davidbryon Kendrick - 07/24/2016 10:04 AM EDT What is [...] Who is patients PCP?: Paola Flynn Payor: MEDICARE-Ef[employer] / Plan: MEDICARE-NE / Product Type: MEDICARE [id number] documented in this encounter Plan of Treatment Not on file documented as of this encounter Visit Diagnoses Not on filedocumented in this encounter Care Teams Recycling Director Relationship Specialty Start Date End Date Paola Finney DO PCP - General Internal Medicine 06/29/15 10/24/21 [facility], Pcp PCP - General Internal Medicine 10/25/21 documented as of this encounter
--- OUTSIDE RECORDS SUMMARY | 2025-01-18 16:48 | XMS_ITS | Encounter Summary ---
[facility] Address [facility] [place] [address] Care Team Providers Care Inside Sales Account Representative Name Role Phone Paola Finney DO Primary Care Pro vider Unavailable Community, Pcp Primary Care Provider Unavailabl e Encounter Details Date Type Department Care Team Description 07/29/2017 Transfer Records Medical Records [address] [place] [id number] Abstract, Provider Social History Tobacco Use Types [...] on filedocumented in this encounter Care Teams Inside Sales Account Representative Relationship Specialty Start Date End Date Paola Finney DO PCP - General Internal Medicine 06/29/15 10/24/21 [facility], Pcp PCP - General Internal Medicine 10/25/21 documented as of this encounter
== END 2025-01-18 09:01 | disposition home or self-care (01) ==
LOC: HO.HMGCLNP 09:00
PROVIDERS: PCP Internal Medicine; Visit Provider Internal Medicine
DX: R10.9 Unspecified abdominal pain (principal)
CPT/HCPCS: 87338

== ENCOUNTER 2025-01-24 09:34 | Outpatient (AMB) | payer MEDICARE, MEDICAID, SELFPAY ==
[2025-01-24 09:48] VITALS: BMI 28.8
--- NOTE | 2025-01-24 09:48 | A.OFFVIS_ITS ---
Vital Signs 01/24/25 09:48 Height 5 ft 5 in Weight 173 lb BMI 28.8 Intake Visit Reasons: OV: left hand pain s/p left CTR 05/31/24 Intake Note: Dilcia 74 yr old right hand dominant female presents today for her left thumb pain(possible FPL tendinitis). At her last visit with Dr Santamaria patient was advised to start O.T to work on stretching, strengthening, & normalizing function, discussed activity modification, she should use her hand for normal daily activities and she should perform ROM exercises at home. Patient is status post left carpal tunnel release DOS: 05/31/24 w/ Dr Roseline Santamaria. Today patient states she is having pain on her palm by surgery incision, swelling and her hand gets itchy through out the day. She is soaking her hand with Epson salt and warm water which has been helping. She is only having a little tingling on her thumb but os better than before. Allergies bee pollen (bees) Allergy (Intermediate, Verified 01/24/25 09:51) Anaphylaxis codeine Allergy (Intermediate, Verified 01/24/25 09:51) Headache HPI HPI OV: left hand pain s/p left CTR 05/31/24: Details: Dilcia is a 74 year old right hand dominant woman who returns with complains of left hand pain. She complains of pain primarily in her left thumb, extending from the thenar mass into the carpal tunnel, over the volar aspect of the basal joint, unchanged since her last appointment. She also reports having had an itchy rash on her left hand, extending up to her forearm, in the last few weeks. She was treating this with Benadryl & epsom salt soaks, as well as a cortisone cream given to her by her PCP, and this rash has improved. She denies any known injuries. There is no record of her attending OT hand therapy as ordered. She later noted that she did not attend OT hand therapy. She is S/P left carpal tunnel release, DOS: 05/31/24. She says she still has some numbness in her left thumb, improved following surgery. She says she has normal sensation in her other digits. Her thumb sensation is improving still, which she is happy about. She has a Hx of an aortic aneurysm. She denies any blood thinners. [facility] Medical History (Updated 01/10/25 @ 15:05 by Teressa Stoner MD) Abdominal pain Tick bite Right carpal tunnel syndrome Food allergic skin reaction Thoracic spine pain Carpal tunnel syndrome Abnormal skin growth Vitamin D deficiency Multinodular thyroid Hyperlipidemia Surgical History History of carpal tunnel surgery Hx of biopsy Hx of mammogram Hx of shoulder surgery Hx of cholecystectomy Hx of appendectomy H/O colonoscopy Family History Father No problems noted. Mother No problems noted. 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 normal sensation to the index & middle fingers. Normal sensation ulnar nerve distribution No thenar or intrinsic wasting Weak APB muscle belly firing and good finger cross Vascular: Cap refill brisk ROM: She can make a fist and extend all of her digits. No locking or catching. Pain reproducible with resisted thumb flexion, radiating down the FPL tendon of the thumb and into the thenar mass in line with the FPL tendon and into the carpal tunnel. I did not appreciate any kind of rash today on her hand or her forearm. There were no open wounds, no swelling or redness. Nerve Conduction Study: Right-side only IMPRESSION: 1. This is an abnormal study. 2. 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 3. There is no electrodiagnostic evidence for median neuropathy, brachial plexopathy, or cervical radiculopathy. Faith Emmanuel MD, PRANEETH 06/25/23 Left-side only IMPRESSION: 1. Left leac-jt-jvvyhame median neuropathy across carpal tunnel. 2. Mild left ulnar neuropathy across cubital tunnel. M Bhargavi Alejo MD 05/01/2022 Assessment & Plan Assessment & Plan (1) Pain of left thumb: Code(s): M79.645 - Pain in left finger(s) Category: Medical (2) Tendinitis of left hand: Code(s): M77.8 - Other enthesopathies, not elsewhere classified Category: Medical Plan Assessment & Plan: 1. Left thumb pain Possible FPL tendinitis I educated her about this condition I discussed non-operative treatment options I recommend activity modification, and she is in agreement I discussed activity modification, she should use her hand for normal daily act ivities. She should perform ROM exercises at home She will follow up in 6-8 weeks to see how she is doing. She may benefit from an injection either to the a1 fady proximally or perhaps into the carpal tunnel area if her symptoms do not improve 2. Left hand rash Extending from her palm into her forearm in patches This is resolving with Cortisone cream & Epsom salt soaks. 3. Left Carpal tunnel syndrome, S/P release DOS: 05/31/24 Pre-operatively with dense numbness Now with improved sensation in the thumb, though not yet normal, and normal sensation in the index & middle fingers. 4. Left Cubital tunnel syndrome, mild Asymptomatic 5. Right cubital tunnel syndrome No complaints today 6. Left hand mass ~1cm proximal to the distal phillips crease in line with a small finger Measuring ~5mm in diameter This could be a Dupuytrens nodule but is more proximal than normal. No intervention warranted at this time. She understands to follow up if this increases in size or pain Scribed for Roseline Santamaria MD by Hilario Sorensen, medical secretary teacher, on 01/24/25 at 10:00 AM, EST. Coding Level of Care Code Est Pt Level 4 (32384) Diagnoses Pain of left thumb M79.645 Tendinitis of left hand M77.8
--- OUTSIDE RECORDS SUMMARY | 2025-01-24 10:48 | XMS_ITS | Clinical Summary ---
Author Organization [facility] Address [address] [place] [address] Care Team Providers Care Warehouse Shipping Receiving Clerk Name Role Phone Teressa Stoner MD Primary Care Provider [phone] Surgical History Surgery Date Site/Laterality Comments APPENDECTOMY PROCEDURE: HISTORICAL APPENDECTOMY; COMMENT: 1972 BLADDER SURGERY 03/2005 PROCEDURE: HISTORICAL BLADDER SURGERY; COMMENT: Cystocele repair, Bladder sling CHOLECYSTECTOMY 2000 PROCEDURE: HISTORICAL CHOLECYSTECTOMY COLONOSCOPY 02/09/2017 PROCEDURE: HISTORICAL COLONOSCOPY; COMMENT: adenoma; repeat in 5 yrs UPPER GASTROINTESTINAL ENDOSCOPY 05/14/2018 PROCEDURE: DE UPPER GI ENDOSCOPY PERFORMED; COMMENT: normal. FLEXIBLE [...] Recently Relevant to Health Maintenance Care Teams Warehouse Shipping Receiving Clerk Relationship Specialty Start Date End Date Teressa Stoner MD [address] [place] [address] PCP - General Internal Medicine 03/29/24
--- OUTSIDE RECORDS SUMMARY | 2025-01-24 10:48 | XMS_ITS | Patient Health Record ---
Author Organization [facility] Address [address] [place] [address] Care Team Providers Care Cell Stripper Final Name Role Phone Teressa Stoner MD Primary Care Provider Alcides Vanessa [phone] Reason For Referral No Information Plan Of Treatment Next Appt Details Provider Name:Alcides Allan , 02/14/2025 02:00:00 PM, [address], [address], [place], [address], Insurance Providers Payer Name Payer Address Payer Phone Subscriber Number Group Number Insured Name Patient Relationship to Insured Coverage Start Date Coverage End Date [place] [address] [place] [address] [id number] ORANY JOE Self - patient is the insured MEDICAID OF [facility] [address] [place] [address] [id number] ORANY, JOE Self - patient is the insured
== END 2025-01-24 10:11 | disposition home or self-care (01) ==
LOC: HO.HOS 09:34
PROVIDERS: PCP Internal Medicine; Visit Provider Orthopaedic Surgery
DX: M79.645 Pain in left finger(s) (principal); M77.8 Other enthesopathies, not elsewhere classified
CPT/HCPCS: 99213

== ENCOUNTER → 2025-01-24 09:34 | Outpatient (BNVA) | payer MEDICARE, MEDICAID, SELFPAY | PROVIDERS: PCP Internal Medicine; Visit Provider Orthopaedic Surgery | DX: M79.645 Pain in left finger(s) (principal); M77.8 Other enthesopathies, not elsewhere classified; Z87.39 Personal history of other diseases of the musculoskeletal system and connective tissue; Z98.890 Other specified postprocedural states | CPT/HCPCS: 99212 ==

== ENCOUNTER 2025-01-27 10:25 | Outpatient (REF) | payer MEDICARE, MEDICAID, SELFPAY ==
--- NOTE | ~2025-01-27 | US_ITS ---
CLINICAL HISTORY: K76.89 - Other specified diseases of liver US abdomen complete Comparison: 01/29/2022 Findings: The visualized pancreas is normal. The aorta and inferior vena cava are normal caliber. The appearance of the liver suggests fatty infiltration. There are benign incidental hepatic cysts. There is no intrahepatic bile duct dilatation. The common duct is 4.4 mm in diameter. The gallbladder is normal. There is no sonographic Fonseca sign. The main portal vein is antegrade. The right kidney is 10.7 cm in length. No ascites. IMPRESSION: 1. Hepatic steatosis. This document has been electronically signed by: Jimmie Lewis MD on 01/29/2025 09:07:59
--- OUTSIDE RECORDS SUMMARY | 2025-01-27 12:19 | XMS_ITS | Clinical Summary ---
Author Organization [facility] Address [address] [place] [address] Care Team Providers Care Wet Trimmer Name Role Phone Teressa Stoner MD Primary Care Provider [phone] Surgical History Surgery Date Site/Laterality Comments APPENDECTOMY [...] History Relation Name Comments Diabetes Brother age 52-[place] Heart failure Father Kidney stones Heart attack [...] Recently Relevant to Health Maintenance Care Teams Wet Trimmer Relationship Specialty Start Date End Date Teressa Stoner MD [address] [place] [address] PCP - General Internal Medicine 03/29/24
--- OUTSIDE RECORDS SUMMARY | 2025-01-27 12:19 | XMS_ITS | Patient Health Record ---
Author Organization [facility] Address [address] [place] [address] Care Team Providers Care Guide Excursion Name Role Phone Teressa Stoner MD Primary Care Provider Alcides Vanessa [phone] Reason For Referral No Information Plan Of Treatment Next Appt Details Provider Name:Alcides Allan , 02/14/2025 02:00:00 PM, [address], [address], [place], [address], Insurance Providers Payer Name Payer Address Payer Phone Subscriber Number Group Number Insured Name Patient Relationship to Insured Coverage Start Date Coverage End Date [place] [address] [place] [address] [phone] [id number] ORANY JOE Self - patient is the insured MEDICAID OF [facility] [address] [place] [phone] [id number] ORANY, JOE Self - patient is the insured
== END 2025-01-27 10:26 | disposition home or self-care (01) ==
LOC: HO.HMGCX 10:25
PROVIDERS: PCP Internal Medicine; Visit Provider Internal Medicine
DX: K76.89 Other specified diseases of liver (principal)
CPT/HCPCS: 76705

== ENCOUNTER → 2025-01-27 10:30 | Outpatient (BNV) | payer MEDICARE, MEDICAID, SELFPAY | PROVIDERS: PCP Internal Medicine; Visit Provider Specialist | DX: K76.0 Fatty (change of) liver, not elsewhere classified (principal) | CPT/HCPCS: 76705 ==